=== PATIENT | female | born 1985 | race Caucasian/White ===

== ENCOUNTER 2017-12-18 05:37 | Emergency (ER) | payer SELFPAY ==
--- NOTE | 2017-12-18 06:40 | PHYS DOC ---
Past History Past Medical History: No Pertinent History Smoking: Cigarettes Alcohol Use: None Drug Use: None Adult General Chief Complaint Chief Complaint: ANKLE PROBLEM HPI HPI Patient is a 32 year old female who presents with complaining of injury to right ankle. Patient states she twisted her ankle last night while walking her dog and felt severe pain in lateral side of her ankle that gradually getting worse. Patient rated her pain 6 without bearing weight and 10 out of 10 with standing up. She denies focal neuro deficit and other injuries. Review of Systems Review of Systems Constitutional: Denies fever or chills [] Eyes: Denies change in visual acuity, redness, or eye pain [] HENT: Denies nasal congestion or sore throat [] Respiratory: Denies cough or shortness of breath [] Cardiovascular: No additional information not addressed in HPI [] GI: Denies abdominal pain, nausea, vomiting, bloody stools or diarrhea [] : Denies dysuria or hematuria [] Musculoskeletal: Denies back pain, reports joint pain [] Integument: Denies rash or skin lesions [] Neurologic: Denies headache, focal weakness or sensory changes [] Endocrine: Denies polyuria or polydipsia [] All other systems were reviewed and found to be within normal limits, except as documented in this note. Allergies Allergies Allergies Coded Allergies Type Severity Reaction Last Updated Verified paroxetine Allergy Unknown 12/18/17 Yes Physical Exam Physical Exam Constitutional: Well developed, well nourished, mild distress, non-toxic appearance. [] HENT: Normocephalic, atraumatic. Eyes: PERRLA, EOMI, conjunctiva normal, no discharge. [] Neck: Normal range of motion, no tenderness, supple, no stridor. [] Cardiovascular:Heart rate regular rhythm, no murmur [] Lungs & Thorax: Bilateral breath sounds clear to auscultation [] Skin: Warm, dry, no erythema, no rash. [] Back: No tenderness, no CVA tenderness. [] Extremities: Right ankle with erythema and tenderness in lateral side and limited range of motion, no neurovascular deficit, mild erythema of right foot. Neurologic: Alert and oriented X 3, normal motor function, normal sensory function, no focal deficits noted. [] Psychologic: Affect normal, judgement normal, mood normal. [] Current Patient Data Vital Signs Vital Signs Date Time Temp Pulse Resp B/P (MAP) Pulse Ox O2 Delivery O2 Flow Rate FiO2 12/18/17 06:15 98.4 84 18 99 Room Air EKG EKG [] Radiology/Procedures Radiology/Procedures [address] [address] IMAGING REPORT Signed PATIENT: ALPESH AUGUST ACCOUNT: [id number] : 1985 LOCATION: ER AGE: 32 SEX: F EXAM STATUS: REG ER ORD. PHYSICIAN: MAURILIO GARCIA MD REASON: injury PROCEDURE: ANKLE RIGHT 3V Clinical indications: Lateral swelling of the right ankle and the dorsal aspect of the right foot. 3 view study of the right ankle: Mild lateral soft tissue swelling is seen. No acute fracture or dislocation or osteolytic process is evident. The mortise ankle joint is intact. 3 view study of the right foot: No acute fracture or dislocation or osteolytic process is seen. No plantar spur of the calcaneus is evident. Mild dorsal soft tissue swelling is evident. IMPRESSION: No significant osseous abnormality. Electronically signed by: Marcia Metzger MD (12/18/2017 7:49 AM) [facility] DICTATED AND SIGNED BY: MARCIA METZGER MD DATE: 12/18/17745 CC: MAURILIO GARCIA MD; PCP,NO ~ Course & Med Decision Making Course & Med Decision Making Pertinent Imaging studies reviewed. (See chart for details) Evaluation of patient in ER showed 32-year-old female patient with injury to right ankle with moderate edema and tenderness and unremarkable x-ray of ankle. Patient had gelcast splint applied by HYDROSTATIC TUBING TESTER and instructed to follow-up with primary care physician. Dragon Disclaimer Dragon Disclaimer This electronic medical record was generated, in whole or in part, using a voice recognition dictation system. Departure Departure: Impression: Primary Impression: Right ankle sprain Additional Impressions: Tobacco abuse Tobacco abuse counseling Disposition: HOME, SELF-CARE (at 0745) Condition: IMPROVED Referrals: PCP,NO (PCP) Patient Instructions: Ankle Sprain, Smoking Cessation, Tips For Success Additional Instructions: Apply ice on your ankle Follow-up with your primary care physician in 3-5 days Return to ER if not getting better Scripts Naproxen (NAPROSYN) 500 Mg Tablet 1 TAB PO BID, #20 TAB Prov: MAURILIO GARCIA MD 12/18/17 Problem Qualifiers MAURILIO GARCIA MD Dec 18, 2017 06:40
[2017-12-18] MEDS ORDERED: KETOROLAC 60 MG/2 ML VIAL. IM ONE (07:00)
[2017-12-18] MEDS ORDERED: NAPR-683 PO (07:46)
--- NOTE | 2017-12-18 07:52 | RAD ---
Clinical indications: Lateral swelling of the right ankle and the dorsal aspect of the right foot. 3 view study of the right ankle: Mild lateral soft tissue swelling is seen. No acute fracture or dislocation or osteolytic process is evident. The mortise ankle joint is intact. 3 view study of the right foot: No acute fracture or dislocation or osteolytic process is seen. No plantar spur of the calcaneus is evident. Mild dorsal soft tissue swelling is evident. IMPRESSION: No significant osseous abnormality. Electronically signed by: Kamran Metzger MD (12/18/2017 7:49 AM) [facility]
--- NOTE | 2017-12-18 07:53 | RAD ---
3 view study of the right foot Clinical indications: Lateral swelling of the right ankle and dorsal aspect of the right foot. FINDINGS: No acute fracture or dislocation or osteolytic process is seen. No plantar spur of the calcaneus is evident. Mild dorsal soft tissue swelling is evident. No significant arthritic change is seen. IMPRESSION: No significant osseous abnormality. Electronically signed by: Kamran Metzger MD (12/18/2017 7:50 AM) [facility]
[2017-12-18 07:56] VITALS: BP 108/84
== END 2017-12-18 07:56 | disposition home or self-care (01) ==
LOC: ER 05:37
DX: S93.401A Sprain of unspecified ligament of right ankle, initial encounter (principal); F17.210 Nicotine dependence, cigarettes, uncomplicated; Z71.6 Tobacco abuse counseling; Z88.8 Allergy status to other drugs, medicaments and biological substances; X50.1XXA Overexertion from prolonged static or awkward postures, initial encounter; Y93.K1 Activity, walking an animal; Y92.89 Other specified places as the place of occurrence of the external cause; Y99.8 Other external cause status
CPT/HCPCS: 73610; 73630; 96372; 99284; J1885

== ENCOUNTER 2017-12-23 14:37 | Emergency (ER) | payer SELFPAY ==
[~2017-12-23] VITALS: Ht 165.1 cm; Wt 54.4 kg
[~2017-12-23 14:37] MED LIST: NAPR-683 PO
[2017-12-23] MEDS ORDERED: ACET-704 PO (15:23)
--- NOTE | 2017-12-23 15:24 | PHYS DOC ---
Past History Past Medical History: No Pertinent History Past Surgical History: Other Smoking: Cigarettes Additional Smoking Information: 03/07 PPD Alcohol Use: None Drug Use: None Adult General Chief Complaint Chief Complaint: ANKLE PROBLEM HPI HPI Patient is a 32 year old female history of injury to right ankle 5 days ago and ER visit with diagnosis of sprain complaining of increasing pain and swelling of her ankle. Patient had crutches and Aircast splint and prescription of Naprosyn but states her pain is not getting better and her swelling getting worse. Patient denies focal neuro deficit and new injuries. Review of Systems Review of Systems Constitutional: Denies fever or chills [] Eyes: Denies change in visual acuity, redness, or eye pain [] HENT: Denies nasal congestion or sore throat [] Respiratory: Denies cough or shortness of breath [] Cardiovascular: No additional information not addressed in HPI [] GI: Denies abdominal pain, nausea, vomiting, bloody stools or diarrhea [] : Denies dysuria or hematuria [] Musculoskeletal: Denies back pain, reports joint pain [] Integument: Denies rash or skin lesions [] Neurologic: Denies headache, focal weakness or sensory changes [] Endocrine: Denies polyuria or polydipsia [] All other systems were reviewed and found to be within normal limits, except as documented in this note. Allergies Allergies Allergies Coded Allergies Type Severity Reaction Last Updated Verified paroxetine Allergy Unknown 12/18/17 Yes Physical Exam Physical Exam Constitutional: Well developed, well nourished, mild distress, non-toxic appearance. [] HENT: Normocephalic, atraumatic Eyes: PERRLA, EOMI, conjunctiva normal, no discharge. [] Neck: Normal range of motion, no tenderness, supple, no stridor. [] Cardiovascular:Heart rate regular rhythm, no murmur [] Lungs & Thorax: Bilateral breath sounds clear to auscultation [] Skin: Warm, dry, no erythema, no rash. [] Back: No tenderness, no CVA tenderness. [] Extremities: Right ankle with contusion and old ecchymosis in lateral malleolus with moderate edema and tenderness without deformity No tenderness, no cyanosis , no clubbing, Neurologic: Alert and oriented X 3, normal motor function, normal sensory function, no focal deficits noted. [] Psychologic: Affect normal, judgement normal, mood normal. [] Current Patient Data Vital Signs Vital Signs Date Time Temp Pulse Resp B/P (MAP) Pulse Ox O2 Delivery O2 Flow Rate FiO2 12/23/17 14:59 98.9 93 20 100 Room Air EKG EKG [] Radiology/Procedures Radiology/Procedures [] Course & Med Decision Making Course & Med Decision Making Evaluation of patient in ER showed 32-year-old female patient with history of ankle injury and negative x-ray previous emergency room visits complaining of increasing pain. Patient instructed to elevate her leg and continue to use crutches and gel cast splint. Prescription for Tylenol 3 was given. Dragon Disclaimer Dragon Disclaimer This electronic medical record was generated, in whole or in part, using a voice recognition dictation system. Departure Departure: Impression: Primary Impression: Moderate right ankle sprain Additional Impressions: Contusion of right ankle Tobacco abuse Tobacco abuse counseling Disposition: HOME, SELF-CARE (at 1520) Condition: STABLE Referrals: PCP,NO (PCP) Patient Instructions: Ankle Sprain, Smoking Cessation, Tips For Success Additional Instructions: Continue using crutches and ankle splint Elevate right leg Follow-up with your primary care physician in 3-5 days Return to ER if not getting better Scripts Acetaminophen With Codeine (TYLENOL WITH CODEINE #3 TABLET) 1 Each Tablet 1 TAB PO Q6HRS, #14 TAB Prov: MAURILIO GARCIA MD 12/23/17 Problem Qualifiers MAURILIO GARCIA MD Dec 23, 2017 15:24
[2017-12-23 15:35] VITALS: BP 122/66
== END 2017-12-23 15:39 | disposition home or self-care (01) ==
LOC: ER 14:37
DX: S93.401D Sprain of unspecified ligament of right ankle, subsequent encounter (principal); F17.210 Nicotine dependence, cigarettes, uncomplicated; Z71.6 Tobacco abuse counseling; X58.XXXD Exposure to other specified factors, subsequent encounter
CPT/HCPCS: 99283

== ENCOUNTER 2017-12-27 16:01 | Inpatient (IN) | payer SELFPAY ==
[~2017-12-27] VITALS: Ht 165.1 cm; Wt 56.5 kg
[~2017-12-27 16:01] MED LIST changes: +ACET-704 PO
[2017-12-27] MEDS ORDERED: oxyCODONE/APAP 10/325 1 TAB TABLET PO ONE (17:45)
[2017-12-27] MEDS ORDERED: LIDOCAINE 2% 20 ML VIAL. ONE (18:47)
--- NOTE | 2017-12-27 19:12 | PHYS DOC ---
Past History Past Medical History: Anxiety Past Surgical History: Other Smoking: Cigarettes Alcohol Use: None Drug Use: None Adult General Chief Complaint Chief Complaint: SKIN RASH/ABSCESS HPI HPI 32-year-old female presents with right ankle abscess. Patient has been on Bactrim for the last 7 days, but her abscess has not improved. She has surrounding cellulitis. The patient initially thought she had an ankle fracture , but turned out to be infection. She presents today to have the abscess drained. She does not have a systemic fever. Review of Systems Review of Systems Constitutional: Denies fever or chills [] Eyes: Denies change in visual acuity, redness, or eye pain [] HENT: Denies nasal congestion or sore throat [] Respiratory: Denies cough or shortness of breath [] Cardiovascular: No additional information not addressed in HPI [] GI: Denies abdominal pain, nausea, vomiting, bloody stools or diarrhea [] : Denies dysuria or hematuria [] Musculoskeletal: Denies back pain or joint pain [] Integument: Abscess and cellulitis[] Neurologic: Denies headache, focal weakness or sensory changes [] Endocrine: Denies polyuria or polydipsia [] All other systems were reviewed and found to be within normal limits, except as documented in this note. Current Medications Current Medications Current Medications Medications (Trade) Dose Ordered Sig/[facility] Start Time Stop Time Status Last Admin Dose Admin Lidocaine HCl 20 ml STK-MED ONCE 12/27/17 18:47 12/27/17 18:48 DC Oxycodone/ Acetaminophen (Percocet 10/325) 1 tab 1X ONCE 12/27/17 17:45 12/27/17 17:46 DC 12/27/17 17:45 1 TAB Allergies Allergies Allergies Coded Allergies Type Severity Reaction Last Updated Verified paroxetine Allergy Unknown 12/18/17 Yes Physical Exam Physical Exam Constitutional: Well developed, well nourished, no acute distress, non-toxic appearance. [] HENT: Normocephalic, atraumatic, bilateral external ears normal, oropharynx moist, no oral exudates, nose normal. [] Eyes: PERRLA, EOMI, conjunctiva normal, no discharge. [] Neck: Normal range of motion, no tenderness, supple, no stridor. [] Cardiovascular:Heart rate regular rhythm, no murmur [] Lungs & Thorax: Bilateral breath sounds clear to auscultation [] Abdomen: Bowel sounds normal, soft, no tenderness, no masses, no pulsatile masses. [] Skin: 3 cm x 5 cm fluctuant abscess on the right lateral ankle. There is surrounding cellulitis 8 cm x 8 cm.[] Back: No tenderness, no CVA tenderness. [] Extremities: No tenderness, no cyanosis, no clubbing, ROM intact, no edema. [] Neurologic: Alert and oriented X 3, normal motor function, normal sensory function, no focal deficits noted. [] Psychologic: Affect normal, judgement normal, mood normal. [] Current Patient Data Vital Signs Vital Signs Date Time Temp Pulse Resp B/P (MAP) Pulse Ox O2 Delivery O2 Flow Rate FiO2 12/27/17 16:30 98.5 90 19 100 Room Air EKG EKG [] Radiology/Procedures Radiology/Procedures [] Course & Med Decision Making Course & Med Decision Making Pertinent Labs and Imaging studies reviewed. (See chart for details) The patient had an obvious abscess of the right lateral ankle with surrounding cellulitis. I was able to I&D it. See note below for details. The patient denies IV drug use, but she has track bonilla and I'm not sure she has been completely forthcoming. She has failed outpatient antibiotics. I will give her vancomycin and Zosyn in the ED. I discussed the case with Dr. Oviedo and he has accepted the patient for admission and further treatment. [] Dragon Disclaimer Dragon Disclaimer This electronic medical record was generated, in whole or in part, using a voice recognition dictation system. Departure Departure: Referrals: PCP,CLAU (PCP) YEIMY MORATAYA DO Dec 27, 2017 19:12
[2017-12-27] MEDS ORDERED: VANCOMYCIN 1.25 GM in IV NORMAL SALINE 250ML 250 ML IV ONE (19:30)
[2017-12-27] MEDS ORDERED: VANCOMYCIN 1.25 GM in IV NORMAL SALINE 500ML 500 ML IV ONE (19:30)
[2017-12-27] MEDS ORDERED: PIPERACILLIN/TAZOBACTAM 4.5 GM in IV NORMAL SALINE 50ML 50 ML IV ONE (19:45)
[2017-12-27] MEDS ORDERED: HYDROcodone/APAP 5/325MG 1 TAB TABLET PO ONE (20:00)
[2017-12-27] MEDS ORDERED: IV NORMAL SALINE 250ML 250 ML ONE (20:07)
[2017-12-27] MEDS ORDERED: PIPERACILLIN/TAZOBACTAM 4.5 GM VIAL IV ONE (20:08)
[2017-12-27] MEDS ORDERED: VANCOMYCIN 1 GM VIAL. ONE (20:08)
[2017-12-27] MEDS ORDERED: IV NORMAL SALINE 50ML 50 ML ONE (20:08)
[2017-12-27 20:16] LABS: BASO % 1 % (0-3); EOS # 0.1 x10^3/uL (0.0-0.7); EOS % 2 % (0-3); HEMATOCRIT 34.3 % (36.0-47.0); HEMOGLOBIN 11.9 g/dL (12.0-15.5); LYMPH % 37 % (24-48); MEAN CORPUSCULAR HEMOGLOBIN 33 pg (25-35); MEAN CORPUSCULAR HGB CONC 35 g/dL (31-37); MEAN CORPUSCULAR VOLUME 94 fL (79-100); MONO # 0.7 x10^3/uL (0.0-1.1); MONO % 14 % (0-9); NEUT # 2.5 x10^3uL (1.8-7.7); NEUT % 47 % (31-73); PLATELET COUNT 241 x10^3/uL (140-400); RED BLOOD COUNT 3.64 x10^6/uL (3.50-5.40); RED CELL DISTRIBUTION WIDTH 13.4 % (11.5-14.5); WHITE BLOOD COUNT 5.3 x10^3/uL (4.0-11.0)
[2017-12-27 20:29] LABS: ALBUMIN 3.1 g/dL (3.4-5.0); ALBUMIN/GLOBULIN RATIO 0.6 (1.0-1.7); CALCIUM 9.2 mg/dL (8.5-10.1); CREATININE 1.1 mg/dL (0.6-1.0); GFR 58.3; POTASSIUM 4.6 mmol/L (3.5-5.1); TOTAL BILIRUBIN 0.3 mg/dL (0.2-1.0); TOTAL PROTEIN 8.6 g/dL (6.4-8.2)
[2017-12-27] MEDS ORDERED: ONDANSETRON PF 4 MG/2 ML VIAL. IV PRN (21:15)
[2017-12-27] MEDS ORDERED: IV NORMAL SALINE 1,000ML 1,000 ML IV SCH (21:24)
[2017-12-27] MEDS ORDERED: IV NORMAL SALINE 1,000ML 500 ML IV SCH (21:24)
[2017-12-27 21:42] VITALS: BP 122/67
[2017-12-27 23:02] VITALS: BP 112/72
[2017-12-27] MEDS ORDERED: PIP/TAZO PER PHARMACY MC PRN (23:45)
[2017-12-27 23:48] LABS: BARBITURATES NEG (NEG); BENZODIAZEPINES NEG (NEG); CANNABINOIDS NEG (NEG); COCAINE NEG (NEG); METHADONE POS (NEG); OPIATES POS (NEG); PHENCYCLIDINE NEG (NEG)
[2017-12-28 00:02] LABS: AMPHETAMINE/METHAMPHETAMINE NEG (NEG)
[2017-12-28] MEDS: HYDROcodone/APAP 7.5/325MG 1 TAB TABLET PO PRN ×2 (00:23→22:36)
[2017-12-28] MEDS: VANCOMYCIN PER PHARMACY MC PRN ×2 (00:25→00:28)
--- NOTE | 2017-12-28 00:29 | NUR ---
Pharmacy Vancomycin Dosing Note S:Consulted to monitor and dose vancomycin started 12/27/17. O:ALPESH AUGUST is a 32 year old F with Cellulitis . Height: 5 feet, 5 inches Weight: 55.823684 kg [place] Body Weight: 57.00 Adjusted Body Weight: 56.48 Dosing Weight: Actual Other Antibiotics: ZOSYN 3.375G Q6H LABS: Last BUN: 18 Last Creatinine: 1.1 Creatinine Clearance: 65 Last WBC: 5.3 Last Platelets: 241 Tmax (past 24 hours): 98.5 Microbiology: 12/28 PENDING, I&D DONE WITH CX TAKEN I/O: - Drug Levels: Last level: on at Last dose given 12/27/17 at 2030 Vancomycin Dosing: Loading Dose: 1250 mg x1 Dosing Weight: Actual Target Trough: 10-20 A: Based on: WEIGHT, CRCL~65, NON-SEVERE INFECTION, P: 1. INITIATE Vancomycin 750 mg IV q12h AFTER 1250 MG LOADING DOSE, 2. Follow up Trough level on 12/29/17 at 0800 3. Pharmacy will continue to monitor, follow and adjust therapy as needed. SARAH BRYAN [facility], 12/28/17 0029
[2017-12-28] MEDS: PIPERACILLIN/TAZOBACTAM 3.375 GM in IV NORMAL SALINE 50ML 50 ML IV SCH ×4 (01:11→17:25)
[2017-12-28] MEDS: MORPHINE SULFATE 2 MG/ML DISP.SYRIN. IV PRN ×6 (01:29→20:43)
--- NOTE | 2017-12-28 01:50 | NUR ---
PT presented to the ED with a chief complaint of RT ankle pain and abscess. Ankle pain for 2 weeks related to trauma (tripping over dog). PT presented to the ED 2 times prior to this presentation for same complaint. PT with abscess since yesterday per PT. Abscess lanced and cultured in ED. PT admitted for IV antibiotics and pain management. PT arrived on unit via EMS cart in stable condition. PT transferred to bed and assessed. PT wound assessed with photos taken and bandage applied. Wound with sanguinous drainage at time of admission. PT oriented to unit and belongings noted.
[2017-12-28 05:55] VITALS: BP 124/85
[2017-12-28 06:42] LABS: BASO % 1 % (0-3); EOS # 0.1 x10^3/uL (0.0-0.7); EOS % 2 % (0-3); HEMATOCRIT 32.2 % (36.0-47.0); LYMPH # 1.4 x10^3/uL (1.0-4.8); LYMPH % 41 % (24-48); MEAN CORPUSCULAR HEMOGLOBIN 33 pg (25-35); MEAN CORPUSCULAR HGB CONC 34 g/dL (31-37); MEAN CORPUSCULAR VOLUME 95 fL (79-100); MONO # 0.5 x10^3/uL (0.0-1.1); MONO % 15 % (0-9); NEUT # 1.4 x10^3uL (1.8-7.7); NEUT % 41 % (31-73); PLATELET COUNT 205 x10^3/uL (140-400); RED CELL DISTRIBUTION WIDTH 13.6 % (11.5-14.5); WHITE BLOOD COUNT 3.5 x10^3/uL (4.0-11.0)
[2017-12-28 06:43] LABS: CALCIUM 8.5 mg/dL (8.5-10.1); GFR 65.1; POTASSIUM 4.3 mmol/L (3.5-5.1)
[2017-12-28] MEDS: VANCOMYCIN 750 MG in IV NORMAL SALINE 250ML 250 ML IV SCH ×2 (08:49→20:45)
[2017-12-28 10:56] VITALS: BP 112/67
--- NOTE | 2017-12-28 16:36 | NUR ---
Wound Care Wound care consult for abscess to right lateral ankle. Abscess was opened in ER but has reapproximated and filled with drainage again. Attempted to reopen and pack with aquacel ag rope but pt did not tolerate well, unsure if packing is still in wound opening. Covered with 4x4 telfa pad. Discussed with PCP, abscess will need to be reopened and packed to keep open to drain. WC will continue to follow for possible changes.
[2017-12-28 16:52] VITALS: BP 125/81
[2017-12-28 19:45] VITALS: BP 126/89
--- NOTE | 2017-12-28 19:49 | PDOC1 ---
History and Physical Date of Admission: Date of Admission: December 27, 2014 Chief Complaint: Chief Complain: Right ankle pain Source: Source: Caregiver, Chart review, Patient HPI: HPI: 32-year-old female presented to the emergency department complaining of right ankle pain. Patient had been seen previously on the and of this month in the emergency department diagnosed as right ankle sprain. Plain films had been negative and the patient had been placed on Bactrim for the past 7 days. Despite this she presented complaining of worsening right ankle pain with fever and chills. She was found to have an abscess at the lateral malleolus which was I&D by the emergency department physician and wound culture was obtained. She was placed on Zosyn and vancomycin and admitted for continued IV antibiotics and await for wound cultures. Although she complains of pain with walking she denies pain with passive range of motion and no sign of septic joint. White blood cell count was normal, sedimentation rate elevated 69, sodium 131, albumin 3.1. Urine drug screen positive for opiates and methadone. I find the patient sitting up in bed with sterile dressing at the right ankle stating she is feeling much better. She denies any fever or chills since admission and states her pain is controlled. Nursing reports that she has made several trips outside to smoke cigarettes and I advised her this was a smoke- free campus. Her sodium is normalized with IV hydration and when I ask her if she is in a methadone clinic she denies stating that she took it due to her severe pain. She has remained afebrile since admission and although has pain at the right ankle has been ambulatory. Past Medical History: Psych: Anxiety Past Surgical History: PSH: No pertinent surgical history Social History: Smoke: 1 pack per day Alcohol: none Drugs: Other (initially denied any emergency department but admits to methadone ) Allergies: Allergies: Coded Allergies: paroxetine (Verified Allergy, Intermediate, 12/28/17) Current Medications: Current Medications: Current Medications Medications (Trade) Dose Ordered Sig/[facility] Start Time Stop Time Status Last Admin Dose Admin Acetaminophen/ Hydrocodone Bitart (Lortab 5/325) 1 tab 1X ONCE 12/27/17 20:00 12/27/17 20:01 DC 12/27/17 20:25 1 TAB Acetaminophen/ Hydrocodone Bitart (Lortab 7.5/325) 1 tab PRN Q6HRS PRN 12/27/17 23:45 12/28/17 00:23 1 TAB Influenza Virus Vaccine (Afluria Trivalent [id number] Syringe) 0.5 ml ONCE ONCE 12/27/17 23:15 12/27/17 23:16 DC Lactobacillus Rhamnosus (Culturelle) 1 cap BID 12/28/17 21:00 Lidocaine HCl 20 ml STK-MED ONCE 12/27/17 18:47 12/27/17 18:48 DC Morphine Sulfate (Morphine 2mg Syringe) 2 mg PRN Q2HR PRN 12/27/17 21:15 12/28/17 21:14 12/28/17 15:55 2 MG Ondansetron HCl (Zofran) 4 mg PRN Q4HRS PRN 12/27/17 21:15 12/28/17 21:14 Oxycodone/ Acetaminophen (Percocet 10) 1 tab 1X ONCE 12/27/17 17:45 12/27/17 17:46 DC 12/27/17 17:45 1 TAB Piperacillin Sod/ Tazobactam Sod (Zosyn Per Pharmacy) 1 each PRN DAILY PRN 12/27/17 23:45 Piperacillin Sod/ Tazobactam Sod (Zosyn) 4.5 gm STK-MED ONCE 12/27/17 20:08 12/27/17 20:09 DC Piperacillin Sod/ Tazobactam Sod 3.375 gm/Sodium Chloride 50 ml @ 100 mls/hr Q6HRS 12/28/17 00:30 12/28/17 17:25 100 MLS/HR Piperacillin Sod/ Tazobactam Sod 4.5 gm/Sodium Chloride 50 ml @ 100 mls/hr 1X ONCE 12/27/17 19:45 12/27/17 20:14 DC 12/27/17 20:28 100 MLS/HR Sodium Chloride 1,000 ml @ 150 mls/hr Q6H40M 12/27/17 21:24 12/28/17 04:03 DC 12/27/17 23:52 150 MLS/HR Vancomycin HCl (Vanco Per Pharmacy) 1 each PRN DAILY PRN 12/27/17 23:45 12/28/17 00:28 1 EACH Vancomycin HCl (Vancomycin Trough Level) 1 each 1X ONCE 12/29/17 08:00 12/29/17 08:01 Vancomycin HCl (Vancomycin) 1 gm STK-MED ONCE 12/27/17 20:08 12/27/17 20:09 DC Vancomycin HCl 1.25 gm/Sodium Chloride 250 ml @ 166.667 mls/hr 1X ONCE 12/27/17 19:30 12/27/17 20:59 DC 12/27/17 20:28 166.667 MLS/HR Vancomycin HCl 750 mg/Sodium Chloride 250 ml @ 250 mls/hr Q12H 12/28/17 08:30 12/28/17 08:49 250 MLS/HR ROS: ROS: Constitutional: See history of present illness Eyes: No eye pain or blurred vision Skin: No rash or itching Cardiovascular: No chest pain, syncope, palpitations, dyspnea on exertion, or edema Respiratory: No cough or difficulty breathing Gastrointestinal: No nausea, vomiting, or abdominal pain Neurologic: No headaches or focal neurologic deficits Endocrine: No heat or cold intolerance Genitourinary: No incontinence or hematuria Musculoskeletal: See history of present illness Lymphatics: No enlarged lymph nodes Psychiatric: No anxiety or depression PE: PE: Gen.: Alert, pleasant, no apparent distress HEENT: Normocephalic atraumatic, PERRLA EOMI, no scleral icterus, oral mucosa pink and moist Neck: Supple, no lymphadenopathy, nontender Cardiovascular: Normal S1 and S2 no murmurs Pulmonary: Lungs are clear bilaterally with good air movement no respiratory distress Abdomen: Soft nontender non-distended, bowel sounds present no masses Extremities: Soft tissue swelling at the right lateral malleolus with overlying sterile dressing and no visualized erythema, extremity is neurovascularly intact Neuro: Alert and oriented 3, cranial nerves II through XII grossly intact, no lateralizing neuro deficits Vitals: Vitals: Vital Signs Date Time Temp Pulse Resp B/P (MAP) Pulse Ox O2 Delivery O2 Flow Rate FiO2 12/28/17 19:33 Room Air 12/28/17 16:52 98.9 78 18 125/81 (96) 96 Labs: Labs: Laboratory Tests Test 12/27/17 19:55 12/27/17 23:33 12/28/17 06:05 White Blood Count 5.3 x10^3/uL (4.0-11.0) 3.5 x10^3/uL (4.0-11.0) Red Blood Count 3.64 x10^6/uL (3.50-5.40) 3.40 x10^6/uL (3.50-5.40) Hemoglobin 11.9 g/dL (12.0-15.5) 11.0 g/dL (12.0-15.5) Hematocrit 34.3 % (36.0-47.0) 32.2 % (36.0-47.0) Mean Corpuscular Volume 94 fL (79-100) 95 fL (79-100) Mean Corpuscular Hemoglobin 33 pg (25-35) 33 pg (25-35) Mean Corpuscular Hemoglobin Concent 35 g/dL (31-37) 34 g/dL (31-37) Red Cell Distribution Width 13.4 % (11.5-14.5) 13.6 % (11.5-14.5) Platelet Count 241 x10^3/uL (140-400) 205 x10^3/uL (140-400) Neutrophils (%) (Auto) 47 % (31-73) 41 % (31-73) Lymphocytes (%) (Auto) 37 % (24-48) 41 % (24-48) Monocytes (%) (Auto) 14 % (0-9) 15 % (0-9) Eosinophils (%) (Auto) 2 % (0-3) 2 % (0-3) Basophils (%) (Auto) 1 % (0-3) 1 % (0-3) Neutrophils # (Auto) 2.5 x10^3uL (1.8-7.7) 1.4 x10^3uL (1.8-7.7) Lymphocytes # (Auto) 2.0 x10^3/uL (1.0-4.8) 1.4 x10^3/uL (1.0-4.8) Monocytes # (Auto) 0.7 x10^3/uL (0.0-1.1) 0.5 x10^3/uL (0.0-1.1) Eosinophils # (Auto) 0.1 x10^3/uL (0.0-0.7) 0.1 x10^3/uL (0.0-0.7) Basophils # (Auto) 0.0 x10^3/uL (0.0-0.2) 0.0 x10^3/uL (0.0-0.2) Erythrocyte Sedimentation Rate 69 (0-25) Sodium Level 131 mmol/L (136-145) 136 mmol/L (136-145) Potassium Level 4.6 mmol/L (3.5-5.1) 4.3 mmol/L (3.5-5.1) Chloride Level 97 mmol/L (98-107) 103 mmol/L (98-107) Carbon Dioxide Level 28 mmol/L (21-32) 28 mmol/L (21-32) Anion Gap 6 (6-14) 5 (6-14) Blood Urea Nitrogen 18 mg/dL (7-20) 16 mg/dL (7-20) Creatinine 1.1 mg/dL (0.6-1.0) 1.0 mg/dL (0.6-1.0) Estimated GFR (Cockcroft-Gault) 58.3 65.1 BUN/Creatinine Ratio 16 (6-20) Glucose Level 93 mg/dL (70-99) 84 mg/dL (70-99) Calcium Level 9.2 mg/dL (8.5-10.1) 8.5 mg/dL (8.5-10.1) Total Bilirubin 0.3 mg/dL (0.2-1.0) Aspartate Amino Transf (AST/SGOT) 31 U/L (15-37) Alanine Aminotransferase (ALT/SGPT) 51 U/L (14-59) Alkaline Phosphatase 101 U/L (46-116) Total Protein 8.6 g/dL (6.4-8.2) Albumin 3.1 g/dL (3.4-5.0) Albumin/Globulin Ratio 0.6 (1.0-1.7) Ethyl Alcohol Level < 10 mg/dL (0-10) Urine Opiates Screen Pos (NEG) Urine Methadone Screen Pos (NEG) Urine Barbiturates Neg (NEG) Urine Phencyclidine Screen Neg (NEG) Urine Amphetamine/Methamphetamine Neg (NEG) Urine Benzodiazepines Screen Neg (NEG) Urine Cocaine Screen Neg (NEG) Urine Cannabinoids Screen Neg (NEG) Urine Ethyl Alcohol Neg (NEG) Micro: Microbiology VTE Prophylaxis: VTE Prophylaxis Devices: No VTE Pharmacological Prophylaxi: No Assessment/Plan: A/P: Right lower extremity abscess with cellulitis Nicotine addiction Methadone abuse Hyponatremia Continue vancomycin and Zosyn and await culture from abscess I&D. Nicotine patch discourage cigarette smoking. 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 Stool softener to prevent constipation discourage illicit opiate abuse. Wound care consultation reported the abscess was not packed and needs to be I&D with packing. YOVANA ESCOBAR DO Dec 28, 2017 19:49
[2017-12-28] MEDS: LACTOBACILLUS RHAMNOSUS GG 1 CAPSULE. PO SCH (21:00)
[2017-12-28 22:30] VITALS: BP 121/77
[2017-12-29] MEDS: HYDROcodone/APAP 7.5/325MG 1 TAB TABLET PO PRN (04:46)
[2017-12-29] MEDS: PIPERACILLIN/TAZOBACTAM 3.375 GM in IV NORMAL SALINE 50ML 50 ML IV SCH ×5 (05:51→06:00)
[2017-12-29 06:25] VITALS: BP 142/73
[2017-12-29] MEDS: VANCOMYCIN 750 MG in IV NORMAL SALINE 250ML 250 ML IV SCH (08:07)
[2017-12-29] MEDS: LACTOBACILLUS RHAMNOSUS GG 1 CAPSULE. PO SCH (08:27)
[2017-12-29] MEDS ORDERED: NICOTINE 14MG PATCH. TD SCH (09:00)
--- NOTE | 2017-12-29 11:09 | NUR ---
AMA: Pt set to be transferred to [facility] for further treatment of abscess/cellulitis of right ankle. Pt used a wheelchair to wheel herself outside, stating to this nurse that she was taking some belongings to her brother so that she would not have to take them with her to [facility]. Per security, pt was seen on security cameras climbing into a truck and leaving the premises. Wheelchair left outside of hospital. [facility] nursing crew supervisor, [facility] nursing crew supervisor, and Dr. Oviedo notified of pt's leaving AMA. Pt did not have an IV in place when she left. Only belonging noted in pt's room was an arm brace. Attempted to contact pt via phone number listed in chart but line does not accept incoming phone calls.
--- NOTE | 2017-12-29 12:25 | PDOC3 ---
Discharge Summary Visit Information: Final Diagnosis Problems Medical Problems: (1) Abscess or cellulitis of ankle Status: Acute Brief Hospital Course: Allergies: Allergies Coded Allergies Type Severity Reaction Last Updated Verified paroxetine Allergy Intermediate 12/28/17 Yes Vital Signs: Vital Signs Date Time Temp Pulse Resp B/P (MAP) Pulse Ox O2 Delivery O2 Flow Rate FiO2 12/29/17 08:00 Room Air 12/29/17 06:25 98.2 78 18 142/73 (96) 100 Lab Results: Laboratory Tests Test 12/27/17 19:55 12/27/17 23:33 12/28/17 06:05 White Blood Count 5.3 x10^3/uL (4.0-11.0) 3.5 x10^3/uL (4.0-11.0) Red Blood Count 3.64 x10^6/uL (3.50-5.40) 3.40 x10^6/uL (3.50-5.40) Hemoglobin 11.9 g/dL (12.0-15.5) 11.0 g/dL (12.0-15.5) Hematocrit 34.3 % (36.0-47.0) 32.2 % (36.0-47.0) Mean Corpuscular Volume 94 fL (79-100) 95 fL (79-100) Mean Corpuscular Hemoglobin 33 pg (25-35) 33 pg (25-35) Mean Corpuscular Hemoglobin Concent 35 g/dL (31-37) 34 g/dL (31-37) Red Cell Distribution Width 13.4 % (11.5-14.5) 13.6 % (11.5-14.5) Platelet Count 241 x10^3/uL (140-400) 205 x10^3/uL (140-400) Neutrophils (%) (Auto) 47 % (31-73) 41 % (31-73) Lymphocytes (%) (Auto) 37 % (24-48) 41 % (24-48) Monocytes (%) (Auto) 14 % (0-9) 15 % (0-9) Eosinophils (%) (Auto) 2 % (0-3) 2 % (0-3) Basophils (%) (Auto) 1 % (0-3) 1 % (0-3) Neutrophils # (Auto) 2.5 x10^3uL (1.8-7.7) 1.4 x10^3uL (1.8-7.7) Lymphocytes # (Auto) 2.0 x10^3/uL (1.0-4.8) 1.4 x10^3/uL (1.0-4.8) Monocytes # (Auto) 0.7 x10^3/uL (0.0-1.1) 0.5 x10^3/uL (0.0-1.1) Eosinophils # (Auto) 0.1 x10^3/uL (0.0-0.7) 0.1 x10^3/uL (0.0-0.7) Basophils # (Auto) 0.0 x10^3/uL (0.0-0.2) 0.0 x10^3/uL (0.0-0.2) Erythrocyte Sedimentation Rate 69 (0-25) Sodium Level 131 mmol/L (136-145) 136 mmol/L (136-145) Potassium Level 4.6 mmol/L (3.5-5.1) 4.3 mmol/L (3.5-5.1) Chloride Level 97 mmol/L (98-107) 103 mmol/L (98-107) Carbon Dioxide Level 28 mmol/L (21-32) 28 mmol/L (21-32) Anion Gap 6 (6-14) 5 (6-14) Blood Urea Nitrogen 18 mg/dL (7-20) 16 mg/dL (7-20) Creatinine 1.1 mg/dL (0.6-1.0) 1.0 mg/dL (0.6-1.0) Estimated GFR (Cockcroft-Gault) 58.3 65.1 BUN/Creatinine Ratio 16 (6-20) Glucose Level 93 mg/dL (70-99) 84 mg/dL (70-99) Calcium Level 9.2 mg/dL (8.5-10.1) 8.5 mg/dL (8.5-10.1) Total Bilirubin 0.3 mg/dL (0.2-1.0) Aspartate Amino Transf (AST/SGOT) 31 U/L (15-37) Alanine Aminotransferase (ALT/SGPT) 51 U/L (14-59) Alkaline Phosphatase 101 U/L (46-116) Total Protein 8.6 g/dL (6.4-8.2) Albumin 3.1 g/dL (3.4-5.0) Albumin/Globulin Ratio 0.6 (1.0-1.7) Ethyl Alcohol Level < 10 mg/dL (0-10) Urine Opiates Screen Pos (NEG) Urine Methadone Screen Pos (NEG) Urine Barbiturates Neg (NEG) Urine Phencyclidine Screen Neg (NEG) Urine Amphetamine/Methamphetamine Neg (NEG) Urine Benzodiazepines Screen Neg (NEG) Urine Cocaine Screen Neg (NEG) Urine Cannabinoids Screen Neg (NEG) Urine Ethyl Alcohol Neg (NEG) PE: Gen.: Alert, pleasant, no apparent distress HEENT: Normocephalic atraumatic, PERRLA EOMI, no scleral icterus, oral mucosa pink and moist Neck: Supple, no lymphadenopathy, nontender Cardiovascular: Normal S1 and S2 no murmurs Pulmonary: Lungs are clear bilaterally with good air movement no respiratory distress Abdomen: Soft nontender non-distended, bowel sounds present no masses Extremities: No clubbing, cyanosis or edema Neuro: Alert and oriented 3, cranial nerves II through XII grossly intact, no lateralizing neuro deficits Skin: Warm, dry Brief Hospital Course: Ms. Elena is a 32 old [sex] who presented with [ ] Discharge Information: Home Meds: Active Scripts Acetaminophen With Codeine (TYLENOL WITH CODEINE #3 TABLET) 1 Each Tablet, 1 TAB PO Q6HRS, #14 TAB Prov:MAURILIO GARCIA MD 12/23/17 Naproxen (NAPROSYN) 500 Mg Tablet, 1 TAB PO BID, #20 TAB Prov:MAURILIO GARCIA MD 12/18/17 YOVANA ESCOBAR DO Dec 29, 2017 12:25
== END 2017-12-29 10:10 | disposition left against medical advice (07) | DRG 603 ==
LOC: ER 16:01 → 1 SOUTH 21:00
PROVIDERS: ADMIT Neuromusculoskeletal Medicine & OMM; ATTEND Neuromusculoskeletal Medicine & OMM
DX: L03.115 Cellulitis of right lower limb (principal); E87.1 Hypo-osmolality and hyponatremia; F17.210 Nicotine dependence, cigarettes, uncomplicated; L02.415 Cutaneous abscess of right lower limb; F11.10 Opioid abuse, uncomplicated; Z79.899 Other long term (current) drug therapy; Z88.8 Allergy status to other drugs, medicaments and biological substances
CPT/HCPCS: 10060; 36415; 80048; 80053; 80307; 85025; 85651; 87040; 87071; 87075; 96365; 96368; G0480; J2270; J2543; J3370; J7050; 99285-25; G0479; J7030

== ENCOUNTER 2018-10-06 16:41 | Inpatient (IN) | payer SELFPAY ==
[~2018-10-06] VITALS: Ht 165.1 cm; Wt 56.3 kg
[2018-10-06] MEDS ORDERED: ONDANSETRON PF 4 MG/2 ML VIAL. IV ONE (17:30)
[2018-10-06] MEDS ORDERED: IV NORMAL SALINE 1,000ML 1,000 ML IV ONE (17:30)
--- NOTE | 2018-10-06 17:56 | PHYS DOC ---
Past History Past Medical History: Anxiety (SANA WALKER DO) Past Medical History: Bronchitis, Pneumonia, Other (DIONISIO RAMOS MD) Past Surgical History: Other (SANA WALKER DO) Smoking: Cigarettes Alcohol Use: None Drug Use: None (SANA WALKER DO) Adult General Chief Complaint Chief Complaint: MULTIPLE COMPLAINTS HPI HPI Patient is a 33-year-old female who presents with fever and severe body aches and pleuritic type chest pain. She states this is been ongoing now for a few days. She states she was treated for a pneumonia a few weeks ago was in the hospital with a miscarriage she had some vaginal bleeding at that time which stopped. She states she does continue to smoke tobacco. She is been a drug user in the past and is hep C positive. She was seen at [facility] and treated yesterday. CT scan of her chest there showed multi lobar infiltrate consistent with pneumonia[] (SANA WALKER DO) Review of Systems Review of Systems Constitutional: Reports fever and chills[] Eyes: Denies change in visual acuity, redness, or eye pain [] HENT: Denies nasal congestion or sore throat [] Respiratory: Reports cough congestion and shortness of breath[] Cardiovascular: No additional information not addressed in HPI [] GI: Denies abdominal pain, nausea, vomiting, bloody stools or diarrhea [] : Denies dysuria or hematuria [] Musculoskeletal: Reports severe muscle aches and joint aches especially in the shoulders[] Integument: Denies rash or skin lesions [] Neurologic: Denies headache, focal weakness or sensory changes [] Endocrine: Denies polyuria or polydipsia [] All other systems were reviewed and found to be within normal limits, except as documented in this note. (SANA AWLKER DO) Current Medications Current Medications Current Medications Medications (Trade) Dose Ordered Sig/Chris Start Time Stop Time Status Last Admin Dose Admin Fentanyl Citrate (Fentanyl 2ml Vial) 50 mcg 1X ONCE 10/06/18 17:30 10/06/18 17:31 DC Ondansetron HCl (Zofran) 4 mg 1X ONCE 10/06/18 17:30 10/06/18 17:31 DC Piperacillin Sod/ Tazobactam Sod 3.375 gm/Sodium Chloride 50 ml @ 100 mls/hr 1X ONCE 10/06/18 18:00 10/06/18 18:29 Sodium Chloride 1,000 ml @ 1,000 mls/hr 1X ONCE 10/06/18 17:30 10/06/18 18:29 Vancomycin HCl 1.25 gm/Sodium Chloride 500 ml @ 250 mls/hr 1X ONCE 10/06/18 18:00 10/06/18 19:59 (SANA WALKER DO) Allergies Allergies Allergies Coded Allergies Type Severity Reaction Last Updated Verified paroxetine Allergy Intermediate 12/28/17 Yes (SANA WALKER DO) Physical Exam Physical Exam Constitutional: Well developed, well nourished, no acute distress, non-toxic appearance. [] HENT: Normocephalic, atraumatic, bilateral external ears normal, oropharynx moist, no oral exudates, nose normal. [] Eyes: PERRLA, EOMI, conjunctiva normal, no discharge. [] Neck: Normal range of motion, no tenderness, supple, no stridor. [] Cardiovascular:Heart rate regular rhythm, no murmur [] Lungs & Thorax: Bilateral breath sounds clear to auscultation [] Abdomen: Bowel sounds normal, soft, no tenderness, no masses, no pulsatile masses. [] Skin: Warm, dry, no erythema, no rash. [] Back: No tenderness, no CVA tenderness. [] Extremities: No tenderness, no cyanosis, no clubbing, ROM intact, no edema. [] Neurologic: Alert and oriented X 3, normal motor function, normal sensory function, no focal deficits noted. [] Psychologic: Affect normal, judgement normal, mood normal. [] (SANA WALKER DO) Current Patient Data Vital Signs Vital Signs Date Time Temp Pulse Resp B/P (MAP) Pulse Ox O2 Delivery O2 Flow Rate FiO2 10/06/18 17:01 100.1 117 22 97 Room Air (SANA WALKER DO) EKG EKG [] (SANA WALKER DO) Radiology/Procedures Radiology/Procedures [] (SANA WALKER DO) Course & Med Decision Making Course & Med Decision Making Pertinent Labs and Imaging studies reviewed. (See chart for details) [] (SANA WALKER DO) Course & Med Decision Making See Dr. Walker note for details. Procedure Note: Multiple attempts by nursing for IV's. Need for IV, labs, and antibiotics. Pt. agrees to Ext. Jugular placement. Lt. Ext. jugular prepped with Betadine and pt. placed in Trendelenburg. One stick IV placed 18-gauge left external jugular. Flushed easily. Blood collected. OpSite coverage. Secured IV site with additional tape. IV fluids started. Impression:. 1. Hx. of lingular pneumonia- hospital acquired ( Recent admit- [facility]) 2. History of polysubstance abuse 3. Anemia 8.9 hemoglobin 4. Thrombocytopenia 91 5. Elevated segs 76 6. Hyponatremia 135 7. Hypokalemia 3.1 8. Elevated Glucose 133 9. Malnutrition Alb. 2.2 10. Elevated Alk phos 137/AST 41 11. Hx. Hepatitis 12. Hx. of Non-compliance 13. Tobacco use 14. Sirs vs Sepsis risk Admitted to Dr. Colby for further eval and tx. (DIONISIO RAMOS MD) Dragon Disclaimer Dragon Disclaimer This electronic medical record was generated, in whole or in part, using a voice recognition dictation system. (SANA WALKER DO) Departure Departure: Impression: Primary Impression: Pneumonia Disposition: ADMITTED INPATIENT Admitting Physician: Lyla Colby (SANA WALKER DO) Condition: GUARDED Referrals: PCP,NO (PCP) Discharge Summary Visit Information Final Diagnosis Problems Medical Problems: (1) Pneumonia Status: Acute (DIONISIO RAMOS MD) Final Diagnosis Problems Medical Problems: (1) Pneumonia Status: Acute (SANA WALKER DO) Brief Hospital Course Allergies Allergies Coded Allergies Type Severity Reaction Last Updated Verified paroxetine Allergy Intermediate 12/28/17 Yes Vital Signs Vital Signs Date Time Temp Pulse Resp B/P (MAP) Pulse Ox O2 Delivery O2 Flow Rate FiO2 10/07/18 05:48 98.4 90 18 106/70 (82) 95 Room Air Lab Results Laboratory Tests Test 10/06/18 18:24 10/06/18 19:05 10/07/18 04:15 White Blood Count 6.9 x10^3/uL (4.0-11.0) Red Blood Count 2.78 x10^6/uL (3.50-5.40) Hemoglobin 8.9 g/dL (12.0-15.5) Hematocrit 27.0 % (36.0-47.0) Mean Corpuscular Volume 97 fL (79-100) Mean Corpuscular Hemoglobin 32 pg (25-35) Mean Corpuscular Hemoglobin Concent 33 g/dL (31-37) Red Cell Distribution Width 19.1 % (11.5-14.5) Platelet Count 91 x10^3/uL (140-400) Neutrophils (%) (Auto) 65 % (31-73) Lymphocytes (%) (Auto) 19 % (24-48) Monocytes (%) (Auto) 15 % (0-9) Eosinophils (%) (Auto) 1 % (0-3) Basophils (%) (Auto) 0 % (0-3) Neutrophils # (Auto) 4.5 x10^3uL (1.8-7.7) Lymphocytes # (Auto) 1.3 x10^3/uL (1.0-4.8) Monocytes # (Auto) 1.0 x10^3/uL (0.0-1.1) Eosinophils # (Auto) 0.1 x10^3/uL (0.0-0.7) Basophils # (Auto) 0.0 x10^3/uL (0.0-0.2) Segmented Neutrophils % 76 % (35-66) Band Neutrophils % 2 % (0-9) Lymphocytes % 13 % (24-48) Monocytes % 9 % (0-10) Platelet Estimate Decreased (ADEQUATE) Polychromasia Slight Anisocytosis Slight Schistocytes Occ Sodium Level 135 mmol/L (136-145) Potassium Level 3.1 mmol/L (3.5-5.1) Chloride Level 101 mmol/L (98-107) Carbon Dioxide Level 25 mmol/L (21-32) Anion Gap 9 (6-14) Blood Urea Nitrogen 11 mg/dL (7-20) Creatinine 1.0 mg/dL (0.6-1.0) Estimated GFR (Cockcroft-Gault) 64.7 BUN/Creatinine Ratio 11 (6-20) Glucose Level 133 mg/dL (70-99) Lactic Acid Level 1.3 mmol/L (0.4-2.0) Calcium Level 8.2 mg/dL (8.5-10.1) Total Bilirubin 0.6 mg/dL (0.2-1.0) Aspartate Amino Transf (AST/SGOT) 41 U/L (15-37) Alanine Aminotransferase (ALT/SGPT) 50 U/L (14-59) Alkaline Phosphatase 137 U/L (46-116) Creatine Kinase < 15 U/L (26-192) Troponin I Quantitative < 0.017 ng/mL (0-0.055) C-Reactive Protein 205.3 mg/L (0-3.3) Total Protein 6.4 g/dL (6.4-8.2) Albumin 2.2 g/dL (3.4-5.0) Albumin/Globulin Ratio 0.5 (1.0-1.7) Urine Opiates Screen Pos (NEG) Urine Methadone Screen Pos (NEG) Urine Barbiturates Neg (NEG) Urine Phencyclidine Screen Neg (NEG) Urine Amphetamine/Methamphetamine Neg (NEG) Urine Benzodiazepines Screen Neg (NEG) Urine Cocaine Screen Neg (NEG) Urine Cannabinoids Screen Neg (NEG) Urine Ethyl Alcohol Neg (NEG) Brief Hospital Course Ms. Elena is a 33 old female who presented with Lingular pneumonia - possible hospital acquired. Admitted Dr. Colby (RACHELDIONISIO MD) Allergies Allergies Coded Allergies Type Severity Reaction Last Updated Verified paroxetine Allergy Intermediate 12/28/17 Yes Vital Signs Vital Signs Date Time Temp Pulse Resp B/P (MAP) Pulse Ox O2 Delivery O2 Flow Rate FiO2 10/07/18 05:48 98.4 90 18 106/70 (82) 95 Room Air Lab Results Laboratory Tests Test 10/06/18 18:24 10/06/18 19:05 10/07/18 04:15 White Blood Count 6.9 x10^3/uL (4.0-11.0) Red Blood Count 2.78 x10^6/uL (3.50-5.40) Hemoglobin 8.9 g/dL (12.0-15.5) Hematocrit 27.0 % (36.0-47.0) Mean Corpuscular Volume 97 fL (79-100) Mean Corpuscular Hemoglobin 32 pg (25-35) Mean Corpuscular Hemoglobin Concent 33 g/dL (31-37) Red Cell Distribution Width 19.1 % (11.5-14.5) Platelet Count 91 x10^3/uL (140-400) Neutrophils (%) (Auto) 65 % (31-73) Lymphocytes (%) (Auto) 19 % (24-48) Monocytes (%) (Auto) 15 % (0-9) Eosinophils (%) (Auto) 1 % (0-3) Basophils (%) (Auto) 0 % (0-3) Neutrophils # (Auto) 4.5 x10^3uL (1.8-7.7) Lymphocytes # (Auto) 1.3 x10^3/uL (1.0-4.8) Monocytes # (Auto) 1.0 x10^3/uL (0.0-1.1) Eosinophils # (Auto) 0.1 x10^3/uL (0.0-0.7) Basophils # (Auto) 0.0 x10^3/uL (0.0-0.2) Segmented Neutrophils % 76 % (35-66) Band Neutrophils % 2 % (0-9) Lymphocytes % 13 % (24-48) Monocytes % 9 % (0-10) Platelet Estimate Decreased (ADEQUATE) Polychromasia Slight Anisocytosis Slight Schistocytes Occ Sodium Level 135 mmol/L (136-145) Potassium Level 3.1 mmol/L (3.5-5.1) Chloride Level 101 mmol/L (98-107) Carbon Dioxide Level 25 mmol/L (21-32) Anion Gap 9 (6-14) Blood Urea Nitrogen 11 mg/dL (7-20) Creatinine 1.0 mg/dL (0.6-1.0) Estimated GFR (Cockcroft-Gault) 64.7 BUN/Creatinine Ratio 11 (6-20) Glucose Level 133 mg/dL (70-99) Lactic Acid Level 1.3 mmol/L (0.4-2.0) Calcium Level 8.2 mg/dL (8.5-10.1) Total Bilirubin 0.6 mg/dL (0.2-1.0) Aspartate Amino Transf (AST/SGOT) 41 U/L (15-37) Alanine Aminotransferase (ALT/SGPT) 50 U/L (14-59) Alkaline Phosphatase 137 U/L (46-116) Creatine Kinase < 15 U/L (26-192) Troponin I Quantitative < 0.017 ng/mL (0-0.055) C-Reactive Protein 205.3 mg/L (0-3.3) Total Protein 6.4 g/dL (6.4-8.2) Albumin 2.2 g/dL (3.4-5.0) Albumin/Globulin Ratio 0.5 (1.0-1.7) Urine Opiates Screen Pos (NEG) Urine Methadone Screen Pos (NEG) Urine Barbiturates Neg (NEG) Urine Phencyclidine Screen Neg (NEG) Urine Amphetamine/Methamphetamine Neg (NEG) Urine Benzodiazepines Screen Neg (NEG) Urine Cocaine Screen Neg (NEG) Urine Cannabinoids Screen Neg (NEG) Urine Ethyl Alcohol Neg (NEG) Brief Hospital Course Ms. Elena is a 33 old [sex] who presented with [ ] (SANA WALKER DO) Discharge Information Condition at Discharge: Improved, Stable Dischare Medications Current Medications Sodium Chloride 1,000 ml @ 1,000 mls/hr 1X ONCE IV Last administered on 10/06/18at 18:36; Start 10/06/18 at 17:30; Stop 10/06/18 at 18:29; Status DC Piperacillin Sod/ Tazobactam Sod 3.375 gm/Sodium Chloride 50 ml @ 100 mls/hr 1X ONCE IV Last administered on 10/06/18at 20:13; Start 10/06/18 at 18:00; Stop 10/06/18 at 18:29; Status DC Vancomycin HCl 1.25 gm/Sodium Chloride 500 ml @ 250 mls/hr 1X ONCE IV Last administered on 10/06/18at 20:08; Start 10/06/18 at 18:00; Stop 10/06/18 at 19:59; Status DC Fentanyl Citrate (Fentanyl 2ml Vial) 50 mcg 1X ONCE IV Last administered on 10/06/18at 18:40; Start 10/06/18 at 17:30; Stop 10/06/18 at 17:31; Status DC Ondansetron HCl (Zofran) 4 mg 1X ONCE IV Last administered on 10/06/18at 18:38; Start 10/06/18 at 17:30; Stop 10/06/18 at 17:31; Status DC Diazepam (Valium) 10 mg 1X ONCE PO ; Start 10/06/18 at 18:00; Stop 10/06/18 at 18:05; Status DC Ondansetron HCl (Zofran) 4 mg PRN Q4HRS PRN IV NAUSEA/VOMITING; Start 10/06/18 at 18:00; Stop 10/07/18 at 17:59 Fentanyl Citrate (Fentanyl 2ml Vial) 50 mcg PRN Q4HRS PRN IV PAIN Last administered on 10/07/18at 03:50; Start 10/06/18 at 18:00; Stop 10/07/18 at 17:59 Sodium Chloride 1,000 ml @ 125 mls/hr Q8H IV Last administered on 10/07/18at 05:17; Start 10/06/18 at 17:57; Stop 10/07/18 at 17:56 Acetaminophen (Tylenol) 650 mg PRN Q4HRS PRN PO FEVER Last administered on 10/06/18at 18:44; Start 10/06/18 at 18:00; Stop 10/07/18 at 17:59 Albuterol/ Ipratropium (Duoneb) 3 ml RTQID NEB ; Start 10/06/18 at 20:00; Stop 10/07/18 at 19:59 Piperacillin Sod/ Tazobactam Sod (Zosyn Per Pharmacy) 1 each PRN DAILY PRN MC SEE COMMENTS; Start 10/06/18 at 18:00; Stop 10/06/18 at 20:55; Status DC Vancomycin HCl (Vanco Per Pharmacy) 1 each PRN DAILY PRN MC SEE COMMENTS; Start 10/06/18 at 18:00; Stop 10/06/18 at 20:55; Status DC Sodium Chloride 500 ml @ As Directed STK-MED ONCE .ROUTE ; Start 10/06/18 at 18:13; Stop 10/06/18 at 18:14; Status DC Vancomycin HCl (Vancomycin) 1 gm STK-MED ONCE .ROUTE ; Start 10/06/18 at 18:13; Stop 10/06/18 at 18:14; Status DC Sodium Chloride 500 ml @ As Directed STK-MED ONCE .ROUTE ; Start 10/06/18 at 18:14; Stop 10/06/18 at 18:15; Status DC Vancomycin HCl (Vancomycin) 1 gm STK-MED ONCE .ROUTE ; Start 10/06/18 at 18:14; Stop 10/06/18 at 18:15; Status DC Lactated Ringer's 1,000 ml @ 2,000 mls/hr 1X ONCE IV ; Start 10/06/18 at 18:45; Stop 10/06/18 at 19:14; Status DC Acetaminophen (Tylenol) 1,000 mg 1X ONCE PO Last administered on 10/06/18at 18:45; Start 10/06/18 at 18:45; Stop 10/06/18 at 18:49; Status DC Ketorolac Tromethamine (Toradol 30mg Vial) 30 mg 1X ONCE IV Last administered on 10/06/18at 19:56; Start 10/06/18 at 19:45; Stop 10/06/18 at 20:12; Status DC Morphine Sulfate (Morphine 10mg Syringe) 10 mg 1X ONCE SQ Last administered on 10/06/18at 19:56; Start 10/06/18 at 20:00; Stop 10/06/18 at 20:12; Status DC Sodium Chloride 50 ml @ As Directed STK-MED ONCE .ROUTE ; Start 10/06/18 at 20:10; Stop 10/06/18 at 20:11; Status DC Piperacillin Sod/ Tazobactam Sod (Zosyn) 3.375 gm STK-MED ONCE IV ; Start 10/06/18 at 20:11; Stop 10/06/18 at 20:12; Status DC Piperacillin Sod/ Tazobactam Sod (Zosyn Per Pharmacy) 1 each PRN DAILY PRN MC SEE COMMENTS; Start 10/06/18 at 21:00 Vancomycin HCl (Vanco Per Pharmacy) 1 each PRN DAILY PRN MC SEE COMMENTS Last administered on 10/07/18at 02:10; Start 10/06/18 at 21:00 Piperacillin Sod/ Tazobactam Sod 3.375 gm/Sodium Chloride 50 ml @ 100 mls/hr Q6HRS IV Last administered on 10/07/18at 00:00; Start 10/07/18 at 00:00 Vancomycin HCl 750 mg/Sodium Chloride 250 ml @ 250 mls/hr Q12H IV ; Start 10/07/18 at 08:00 Vancomycin HCl (Vancomycin Trough Level) 1 each 1X ONCE MC ; Start 10/08/18 at 07:30; Stop 10/08/18 at 07:31 Active Scripts Active (DIONISIO RAMOS MD) Dischare Medications Current Medications Sodium Chloride 1,000 ml @ 1,000 mls/hr 1X ONCE IV Last administered on 10/06/18at 18:36; Start 10/06/18 at 17:30; Stop 10/06/18 at 18:29; Status DC Piperacillin Sod/ Tazobactam Sod 3.375 gm/Sodium Chloride 50 ml @ 100 mls/hr 1X ONCE IV Last administered on 10/06/18at 20:13; Start 10/06/18 at 18:00; Stop 10/06/18 at 18:29; Status DC Vancomycin HCl 1.25 gm/Sodium Chloride 500 ml @ 250 mls/hr 1X ONCE IV Last administered on 10/06/18at 20:08; Start 10/06/18 at 18:00; Stop 10/06/18 at 19:59; Status DC Fentanyl Citrate (Fentanyl 2ml Vial) 50 mcg 1X ONCE IV Last administered on 10/06/18 18:40; Start 10/06/18 at 17:30; Stop 10/06/18 at 17:31; Status DC Ondansetron HCl (Zofran) 4 mg 1X ONCE IV Last administered on 10/06/18at 18:38; Start 10/06/18 at 17:30; Stop 10/06/18 at 17:31; Status DC Diazepam (Valium) 10 mg 1X ONCE PO ; Start 10/06/18 at 18:00; Stop 10/06/18 at 18:05; Status DC Ondansetron HCl (Zofran) 4 mg PRN Q4HRS PRN IV NAUSEA/VOMITING; Start 10/06/18 at 18:00; Stop 10/07/18 at 17:59 Fentanyl Citrate (Fentanyl 2ml Vial) 50 mcg PRN Q4HRS PRN IV PAIN Last administered on 10/07/18at 03:50; Start 10/06/18 at 18:00; Stop 10/07/18 at 17:59 Sodium Chloride 1,000 ml @ 125 mls/hr Q8H IV Last administered on 10/07/18at 05:17; Start 10/06/18 at 17:57; Stop 10/07/18 at 17:56 Acetaminophen (Tylenol) 650 mg PRN Q4HRS PRN PO FEVER Last administered on 10/06/18at 18:44; Start 10/06/18 at 18:00; Stop 10/07/18 at 17:59 Albuterol/ Ipratropium (Duoneb) 3 ml RTQID NEB ; Start 10/06/18 at 20:00; Stop 10/07/18 at 19:59 Piperacillin Sod/ Tazobactam Sod (Zosyn Per Pharmacy) 1 each PRN DAILY PRN MC SEE COMMENTS; Start 10/06/18 at 18:00; Stop 10/06/18 at 20:55; Status DC Vancomycin HCl (Vanco Per Pharmacy) 1 each PRN DAILY PRN MC SEE COMMENTS; Start 10/06/18 at 18:00; Stop 10/06/18 at 20:55; Status DC Sodium Chloride 500 ml @ As Directed STK-MED ONCE .ROUTE ; Start 10/06/18 at 18:13; Stop 10/06/18 at 18:14; Status DC Vancomycin HCl (Vancomycin) 1 gm STK-MED ONCE .ROUTE ; Start 10/06/18 at 18:13; Stop 10/06/18 at 18:14; Status DC Sodium Chloride 500 ml @ As Directed STK-MED ONCE .ROUTE ; Start 10/06/18 at 18:14; Stop 10/06/18 at 18:15; Status DC Vancomycin HCl (Vancomycin) 1 gm STK-MED ONCE .ROUTE ; Start 10/06/18 at 18:14; Stop 10/06/18 at 18:15; Status DC Lactated Ringer's 1,000 ml @ 2,000 mls/hr 1X ONCE IV ; Start 10/06/18 at 18:45; Stop 10/06/18 at 19:14; Status DC Acetaminophen (Tylenol) 1,000 mg 1X ONCE PO Last administered on 10/06/18at 18:45; Start 10/06/18 at 18:45; Stop 10/06/18 at 18:49; Status DC Ketorolac Tromethamine (Toradol 30mg Vial) 30 mg 1X ONCE IV Last administered on 10/06/18at 19:56; Start 10/06/18 at 19:45; Stop 10/06/18 at 20:12; Status DC Morphine Sulfate (Morphine 10mg Syringe) 10 mg 1X ONCE SQ Last administered on 10/06/18at 19:56; Start 10/06/18 at 20:00; Stop 10/06/18 at 20:12; Status DC Sodium Chloride 50 ml @ As Directed STK-MED ONCE .ROUTE ; Start 10/06/18 at 20:10; Stop 10/06/18 at 20:11; Status DC Piperacillin Sod/ Tazobactam Sod (Zosyn) 3.375 gm STK-MED ONCE IV ; Start 10/06/18 at 20:11; Stop 10/06/18 at 20:12; Status DC Piperacillin Sod/ Tazobactam Sod (Zosyn Per Pharmacy) 1 each PRN DAILY PRN MC SEE COMMENTS; Start 10/06/18 at 21:00 Vancomycin HCl (Vanco Per Pharmacy) 1 each PRN DAILY PRN MC SEE COMMENTS Last administered on 10/07/18at 02:10; Start 10/06/18 at 21:00 Piperacillin Sod/ Tazobactam Sod 3.375 gm/Sodium Chloride 50 ml @ 100 mls/hr Q6HRS IV Last administered on 10/07/18at 00:00; Start 10/07/18 at 00:00 Vancomycin HCl 750 mg/Sodium Chloride 250 ml @ 250 mls/hr Q12H IV ; Start 10/07/18 at 08:00 Vancomycin HCl (Vancomycin Trough Level) 1 each 1X ONCE MC ; Start 10/08/18 at 07:30; Stop 10/08/18 at 07:31 Active Scripts Active (SANA WALKER DO) Dragon Disclaimer This chart was dictated in whole or in part using Voice Recognition software in a busy, high-work load, and often noisy Emergency Department environment. It may contain unintended and wholly unrecognized errors or omissions. (DIONISIO RAMOS MD) Dragon Disclaimer This chart was dictated in whole or in part using Voice Recognition software in a busy, high-work load, and often noisy Emergency Department environment. It may contain unintended and wholly unrecognized errors or omissions. (SANA WALKER DO) Problem Qualifiers Primary Impression: Pneumonia Pneumonia type: due to unspecified organism Laterality: bilateral Lung location: unspecified part of lung Qualified Codes: J18.9 - Pneumonia, unspecified organism SANA WALKER DO Oct 06, 2018 17:56 DIONISIO RAMOS MD Oct 07, 2018 05:53
[2018-10-06] MEDS ORDERED: VANCOMYCIN PER PHARMACY MC PRN (18:00)
[2018-10-06] MEDS ORDERED: ONDANSETRON PF 4 MG/2 ML VIAL. IV PRN (18:00)
[2018-10-06] MEDS ORDERED: PIP/TAZO PER PHARMACY MC PRN ×2 (18:00→21:00)
[2018-10-06] MEDS ORDERED: PIPERACILLIN/TAZOBACTAM 3.375 GM in IV NORMAL SALINE 50ML 50 ML IV ONE (18:00)
[2018-10-06] MEDS ORDERED: ACETAMINOPHEN 325 MG TABLET PO PRN (18:00)
[2018-10-06] MEDS ORDERED: diazePAM 5 MG TABLET PO ONE (18:00)
[2018-10-06] MEDS ORDERED: VANCOMYCIN 1.25 GM in IV NORMAL SALINE 500ML 500 ML IV ONE (18:00)
[2018-10-06] MEDS ORDERED: VANCOMYCIN 1 GM VIAL. ONE ×2 (18:13→18:14)
[2018-10-06] MEDS ORDERED: IV NORMAL SALINE 500ML 500 ML ONE ×2 (18:13→18:14)
[2018-10-06] MEDS ORDERED: IV RINGERS SOLUTION,LACTATED 1,000 ML IV ONE (18:45)
[2018-10-06] MEDS ORDERED: ACETAMINOPHEN 500 MG TABLET PO ONE (18:45)
[2018-10-06 18:51] LABS: BASO % 0 % (0-3); EOS # 0.1 x10^3/uL (0.0-0.7); EOS % 1 % (0-3); HEMOGLOBIN 8.9 g/dL (12.0-15.5); LYMPH # 1.3 x10^3/uL (1.0-4.8); LYMPH % 19 % (24-48); MEAN CORPUSCULAR HEMOGLOBIN 32 pg (25-35); MEAN CORPUSCULAR HGB CONC 33 g/dL (31-37); MEAN CORPUSCULAR VOLUME 97 fL (79-100); MONO % 15 % (0-9); NEUT # 4.5 x10^3uL (1.8-7.7); NEUT % 65 % (31-73); PLATELET COUNT 91 x10^3/uL (140-400); RED BLOOD COUNT 2.78 x10^6/uL (3.50-5.40); RED CELL DISTRIBUTION WIDTH 19.1 % (11.5-14.5); WHITE BLOOD COUNT 6.9 x10^3/uL (4.0-11.0)
[2018-10-06] MEDS ORDERED: KETOROLAC 30 MG/ML VIAL. IV ONE (19:45)
[2018-10-06 19:52] LABS: ANION GAP 9 (6-14); CARBON DIOXIDE 25 mmol/L (21-32); GFR 64.7; TOTAL BILIRUBIN 0.6 mg/dL (0.2-1.0)
[2018-10-06] MEDS ORDERED: MORPHINE SULFATE 10 MG/ML SYRINGE. SQ ONE (20:00)
[2018-10-06] MEDS: IPRATRPIUM/ALBUTEROL 0.5/2.5MG 3 ML NEBU. NEB SCH (20:00)
[2018-10-06] MEDS: IV NORMAL SALINE 1,000ML 1,000 ML IV SCH (20:09)
[2018-10-06] MEDS ORDERED: IV NORMAL SALINE 50ML 50 ML ONE (20:10)
[2018-10-06] MEDS ORDERED: PIPERACILLIN/TAZOBACTAM 3.375 GM VIAL IV ONE (20:11)
[2018-10-06 20:17] LABS: ALBUMIN 2.2 g/dL (3.4-5.0); ALBUMIN/GLOBULIN RATIO 0.5 (1.0-1.7); ALK PHOS 137 U/L (46-116); ALT (SGPT) 50 U/L (14-59); AST (SGOT) 41 U/L (15-37); BLOOD UREA NITROGEN 11 mg/dL (7-20); BUN/CREATININE RATIO 11 (6-20); C REACTIVE PROTEIN 205.3 mg/L (0-3.3); CALCIUM 8.2 mg/dL (8.5-10.1); CHLORIDE 101 mmol/L (98-107); GLUCOSE 133 mg/dL (70-99); POTASSIUM 3.1 mmol/L (3.5-5.1); SODIUM 135 mmol/L (136-145); TOTAL PROTEIN 6.4 g/dL (6.4-8.2)
[2018-10-06 21:16] VITALS: BP 98/66
[2018-10-06 22:55] VITALS: BP 92/59
[2018-10-06 23:45] LABS: % SEGS 76 % (35-66)
[2018-10-06 23:46] LABS: % BANDS 2 % (0-9); % LYMPHS 13 % (24-48); % MONOS 9 % (0-10); ANISOCYTOSIS SLIGHT; PLT ESTIMATE DECREASED (ADEQUATE); POLYCHROMASIA SLIGHT; SCHISTOCYTES OCC
[2018-10-07] MEDS: VANCOMYCIN PER PHARMACY MC PRN (02:10)
[2018-10-07] MEDS: IPRATRPIUM/ALBUTEROL 0.5/2.5MG 3 ML NEBU. NEB SCH ×3 (04:55→16:00)
[2018-10-07 05:02] LABS: BARBITURATES NEG (NEG); BENZODIAZEPINES NEG (NEG); CANNABINOIDS NEG (NEG); COCAINE NEG (NEG); METHADONE POS (NEG); OPIATES POS (NEG); PHENCYCLIDINE NEG (NEG)
[2018-10-07 05:06] LABS: AMPHETAMINE/METHAMPHETAMINE NEG (NEG)
[2018-10-07] MEDS: IV NORMAL SALINE 1,000ML 1,000 ML IV SCH ×2 (05:17→09:57)
[2018-10-07 05:48] VITALS: BP 106/70
[2018-10-07] MEDS: PIPERACILLIN/TAZOBACTAM 3.375 GM in IV NORMAL SALINE 50ML 50 ML IV SCH ×6 (06:45→23:17)
[2018-10-07] MEDS ORDERED: POTASSIUM CHLORIDE 20 MEQ TABLET.ER. PO ONE (07:15)
[2018-10-07] MEDS: VANCOMYCIN 750 MG in IV NORMAL SALINE 250ML 250 ML IV SCH ×2 (08:25→19:30)
--- NOTE | 2018-10-07 13:34 | HP ---
ADMIT DATE: 10/06/2018 HISTORY OF PRESENT ILLNESS: The patient is a 33-year-old female patient who presented to the Emergency Room with fever and severe generalized body aches, pleuritic type chest pain. The patient stated that this has been going on for a few days. She states that she was treated for pneumonia a few weeks ago and was in the hospital with miscarriage. She had some vaginal bleed at that time that has stopped. She stated that she does continue to smoke tobacco. She has been a drug user in the past and she is positive for hepatitis C. She was seen in the [facility] and treated yesterday. CT scan of the chest showed that she has multilobar infiltrate consistent with pneumonia; however, according to the patient, she was told that mostly her pneumonia has resolved and she was given antibiotic to continue treatment as an outpatient. I do not have any report of the CT scan or any other documentation from [facility]. In any case, the patient was admitted with pneumonia and was treated for possible health-acquired pneumonia with IV antibiotic in the form of Zosyn and vancomycin. She was also found to have a multitude of other abnormalities including anemia, thrombocytopenia. She has also hypokalemia and her C-reactive protein and sedimentation rate are extremely high. PAST MEDICAL HISTORY: According to her significant for chronic hepatitis C. She is also known to have anxiety and polysubstance abuse. Does have also chronic normochromic normocytic anemia and apparently was admitted in 12/2017 for abscess and cellulitis of left ankle joint that was treated with incision and drainage and was treated with broad-spectrum antibiotic. FAMILY HISTORY: Noncontributory. SOCIAL HISTORY: She apparently lives with her friend. According to her she smokes few cigarettes a day, does not drink alcohol; however, she is positive for methadone and opiate. She is currently unemployed and apparently has no children. ALLERGIES: SHE IS ALLERGIC TO PAXIL. REVIEW OF SYSTEMS: As per history of present illness. The patient has severe generalized polyarthralgia. She is unable even to move her upper extremities to feed herself according to her. PHYSICAL EXAMINATION: GENERAL: On arrival to the Emergency Room, she was pale, somewhat tachypneic, febrile, but no jaundice or cyanosis. No lymphadenopathy, no thyromegaly. No jugular venous distention. No lower limb edema. VITAL SIGNS: Her heart rate was 119, blood pressure was 127/57, temperature was 102.1, respiratory rate was 22 and oxygen saturation was 94%. HEENT: Normocephalic, atraumatic. NECK: Supple. HEART: Showed normal first and second heart sounds. No gallop, rub or murmur. CHEST: Clear to auscultation. No crepitation or rhonchi. ABDOMEN: Distended, soft, nontender. No guarding or rigidity. No organomegaly. All hernial orifice intact. Bowel sounds normal. NEUROLOGIC: She is awake, alert, responding appropriately. All her cranial nerves intact. She has difficulty moving her extremities, although I could not see any obvious swelling of her right upper extremity joints or right knee joint. LABORATORY DATA: On arrival showed a white cell count of 6900, hemoglobin 8.9, hematocrit 27, MCV 97 and platelet count of 91,000. Her chemistry showed a serum sodium 135, potassium 3.1, chloride 101, bicarbonate 25, anion gap of 9, BUN 11, creatinine 1, estimated GFR was 64 mL per minute. Her glucose was 133, lactic acid was 1.3, calcium was 8.2. Total bilirubin and ALT normal. AST and alkaline phosphatase slightly elevated. Her C-reactive protein was 105 mg/dL. Total protein was 6.4, albumin was 2.2. Her toxic screen was positive for opiates and methadone, negative for barbiturate, phencyclidine, amphetamine, methamphetamine, benzodiazepine, cocaine, cannabinoids and ethyl alcohol. She apparently has no imaging studies done in our hospital. Unfortunately, I could not find any records from the [facility]. She was basically admitted with community-acquired pneumonia, normochromic normocytic anemia, thrombocytopenia, has hyponatremia, hypokalemia, severe protein-calorie malnutrition, history of chronic hepatitis C, tobacco use. PLAN: To continue with IV antibiotic in the form of vancomycin and Zosyn. Continue with pain management. Continue with IV fluid. I will repeat all her lab works today and adjust her potassium to make sure the potassium is within normal limit. I will also start her on nonsteroidal anti-inflammatory medication. WALT RAMIREZ MD DR: JUSTIN/libra JOB#: [id number] / [id number]
[2018-10-07 15:17] LABS: BASO # 0.1 x10^3/uL (0.0-0.2); BASO % 1 % (0-3); EOS % 0 % (0-3); HEMATOCRIT 22.5 % (36.0-47.0); HEMOGLOBIN 7.6 g/dL (12.0-15.5); LYMPH # 1.9 x10^3/uL (1.0-4.8); LYMPH % 21 % (24-48); MEAN CORPUSCULAR HEMOGLOBIN 32 pg (25-35); MEAN CORPUSCULAR HGB CONC 34 g/dL (31-37); MEAN CORPUSCULAR VOLUME 95 fL (79-100); MONO # 1.2 x10^3/uL (0.0-1.1); MONO % 13 % (0-9); NEUT % 65 % (31-73); PLATELET COUNT 94 x10^3/uL (140-400); RED BLOOD COUNT 2.36 x10^6/uL (3.50-5.40); RED CELL DISTRIBUTION WIDTH 18.3 % (11.5-14.5); WHITE BLOOD COUNT 9.2 x10^3/uL (4.0-11.0)
[2018-10-07 15:20] LABS: ALBUMIN 1.9 g/dL (3.4-5.0); ALBUMIN/GLOBULIN RATIO 0.4 (1.0-1.7); CALCIUM 8.2 mg/dL (8.5-10.1); GFR 64.7; POTASSIUM 4.1 mmol/L (3.5-5.1); TOTAL BILIRUBIN 0.5 mg/dL (0.2-1.0); TOTAL PROTEIN 6.6 g/dL (6.4-8.2)
[2018-10-07 15:39] VITALS: BP 139/78
--- NOTE | 2018-10-07 18:34 | RAD ---
EXAM: CHEST 2 VIEWS. HISTORY: Chest pain, cough. COMPARISON: None. FINDINGS: Frontal and lateral views of the chest are obtained. Airspace infiltrates are noted in both bases and inferiorly in the right upper lobe, consistent with multifocal pneumonia. There are small bilateral pleural effusions. There is no pneumothorax. The heart is not enlarged. IMPRESSION: 1. Multifocal pneumonia as above. Small bilateral pleural effusions. Electronically signed by: Kianna Wahl MD (10/07/2018 6:31 PM) [facility]
[2018-10-07 19:10] VITALS: BP 117/72
[2018-10-07] MEDS ORDERED: ACETAMINOPHEN 325 MG TABLET PO ONE (19:24)
[2018-10-07] MEDS: ACETAMINOPHEN 325 MG TABLET PO PRN (20:12)
[2018-10-07 23:15] VITALS: BP 119/66
[2018-10-08] MEDS: ACETAMINOPHEN 325 MG TABLET PO PRN ×3 (01:47→18:12)
[2018-10-08] MEDS: PIPERACILLIN/TAZOBACTAM 3.375 GM in IV NORMAL SALINE 50ML 50 ML IV SCH ×4 (06:06→23:46)
[2018-10-08 06:32] VITALS: BP 103/69
[2018-10-08 08:24] LABS: VANC TR 6.3 mcg/mL (10.0-20.0)
[2018-10-08] MEDS: VANCOMYCIN PER PHARMACY MC PRN (09:08)
[2018-10-08] MEDS: VANCOMYCIN 1 GM in IV NORMAL SALINE 250ML 250 ML IV SCH ×2 (09:39→20:35)
[2018-10-08 11:00] VITALS: BP 137/81
[2018-10-08 14:46] VITALS: BP 107/69
[2018-10-08] MEDS ORDERED: MORPHINE SULFATE 10 MG/ML SYRINGE. SQ ONE (16:00)
[2018-10-08 19:54] VITALS: BP 131/75
[2018-10-08] MEDS: LACTOBACILLUS RHAMNOSUS GG 1 CAPSULE. PO SCH (20:33)
[2018-10-08 23:54] VITALS: BP 110/70
[2018-10-09] MEDS: ACETAMINOPHEN 325 MG TABLET PO PRN ×3 (00:12→17:03)
--- NOTE | 2018-10-09 04:35 | PN ---
DATE: 10/08/2018 SUBJECTIVE: The patient is resting slightly propped up in bed, continued to complain of generalized aches and pains. She continued to spike her temperature up to 102.4. Her blood cultures have grown gram-positive cocci in clusters in 2/4 bottles. The identification and sensitivity is still pending at the time of this dictation. Unfortunately, we lost her IV line. PHYSICAL EXAMINATION: GENERAL: When I examined her this afternoon, she was resting slightly propped up in bed, in no apparent respiratory distress, pale, not jaundiced, cyanosis or thyromegaly. No jugular venous distention. No limb edema. VITAL SIGNS: Her heart rate was 124, blood pressure was 137/81, temperature was 102.4, respiratory rate was 22 and oxygen saturation was 91%. HEAD, EYES, EARS, NOSE AND THROAT: Showed normocephalic, atraumatic. NECK: Supple. HEART: Showed normal first and second heart sounds with no gallop, rub or murmur. CHEST: Clear to auscultation, no crepitation or rhonchi. ABDOMEN: Distended, soft, nontender. NEUROLOGIC: She was sleepy, but arousable. All cranial nerves intact. She moves extremities without difficulty, although she is mostly bedbound. ASSESSMENT: Her chest x-ray showed that she continued to have multifocal pneumonia with airspace infiltrate noted in both bases and inferiorly in the right upper lobe consistent with multifocal pneumonia. There are small bilateral pleural effusions, no pneumothorax. Heart is not enlarged. Given that the multifocal pneumonia is resistant, she is growing gram-positive cocci, I am concerned that the patient has endocarditis. I will arrange for her to have an echocardiogram tomorrow and we will arrange for her to have a PICC line and will decide on further management according to the culture and sensitivity and discussion with probably the Infectious Disease specialist. WALT RAMIREZ MD DR: JUSTIN/libra JOB#: [id number] / [id number]
[2018-10-09 04:44] VITALS: BP 113/71
[2018-10-09] MEDS: PIPERACILLIN/TAZOBACTAM 3.375 GM in IV NORMAL SALINE 50ML 50 ML IV SCH ×3 (05:38→18:34)
[2018-10-09 08:06] LABS: BASO % 0 % (0-3); EOS % 0 % (0-3); HEMATOCRIT 21.6 % (36.0-47.0); HEMOGLOBIN 7.2 g/dL (12.0-15.5); LYMPH # 1.8 x10^3/uL (1.0-4.8); LYMPH % 18 % (24-48); MEAN CORPUSCULAR HEMOGLOBIN 32 pg (25-35); MEAN CORPUSCULAR HGB CONC 33 g/dL (31-37); MEAN CORPUSCULAR VOLUME 95 fL (79-100); MONO # 1.1 x10^3/uL (0.0-1.1); MONO % 10 % (0-9); NEUT # 7.5 x10^3uL (1.8-7.7); NEUT % 72 % (31-73); PLATELET COUNT 103 x10^3/uL (140-400); RED BLOOD COUNT 2.28 x10^6/uL (3.50-5.40); RED CELL DISTRIBUTION WIDTH 18.6 % (11.5-14.5); WHITE BLOOD COUNT 10.5 x10^3/uL (4.0-11.0)
[2018-10-09 08:06] LABS: ALBUMIN 1.6 g/dL (3.4-5.0); ALBUMIN/GLOBULIN RATIO 0.3 (1.0-1.7); CALCIUM 7.9 mg/dL (8.5-10.1); CREATININE 1.1 mg/dL (0.6-1.0); GFR 57.9; POTASSIUM 3.6 mmol/L (3.5-5.1); TOTAL BILIRUBIN 0.5 mg/dL (0.2-1.0); TOTAL PROTEIN 6.2 g/dL (6.4-8.2)
--- NOTE | 2018-10-09 08:14 | CARD ---
MR#: [id number] Date of Study: 10/08/2018 Ordering Physician: WALT RAMIREZ, Referring Physician: WALT RAMIREZ, Tech: Karly Heard MIRIAM APPROVED REPORT EXAM: Two-dimensional and M-mode echocardiogram with Doppler and color Doppler. Other Information Quality : GoodHR: 117bpm Rhythm : Tachycardia INDICATION 2D DIMENSIONS Left Atrium(2D)3.4 (1.6-4.0cm)IVSd0.5 (0.7-1.1cm) Aortic Root(2D)2.4 (2.0-3.7cm)LVDd5.1 (3.9-5.9cm) PWd0.5 (0.7-1.1cm)LA Qjvbbk98 (18-58mL) LVDs3.3 (2.5-4.0cm)FS (%) 36.0 % SV80.6 mlLVEF(%)65.3 (>50%) CO9.4 L/min Aortic Valve AoV Peak Gregorio.165.2cm/sAoV VTI21.5cm AO Peak GR.10.9mmHgAO Mean GR.6mmHg MARGUERITE (VTI)3.09cm2 Mitral Valve MV E Glnndtws930.5cm/sMV DECEL DKAP51id MV A Rckxrgan594.3cm/sE/A Ratio1.1 MV A Umboejuq56wx Tricuspid Valve TR P. Bdthboiq371br/sRAP HHMKCJKI1jcHz TR Peak Gr.17rxAtZWQK44wmTj LEFT VENTRICLE The left ventricle is normal size. There is normal left ventricular wall thickness. The left ventricu lar systolic function is normal. The ejection fraction is estimated at 60-65%. There is normal LV seg mental wall motion. The left ventricular diastolic function and filling is normal for age. No left ve ntricle thrombus noted on this study. There is no ventricular septal defect visualized. There is no l eft ventricular aneurysm. There is no mass noted in the left ventricle. RIGHT VENTRICLE The right ventricle is normal size. There is normal right ventricular wall thickness. The right ventr icular systolic function is normal. ATRIA The left atrium size is normal. The right atrium size is normal. The interatrial septum is intact wit h no evidence for an atrial septal defect or patent foramen ovale as noted on 2-D or Doppler imaging. AORTIC VALVE The aortic valve is normal in structure and function. Doppler and Color Flow revealed no significant aortic regurgitation. There is no significant aortic valvular stenosis. There is no aortic valvular v egetation. MITRAL VALVE The mitral valve is normal in structure and function. There is no evidence of mitral valve prolapse. There is no mitral valve stenosis. Doppler and Color-flow revealed trace to mild mitral regurgitation . TRICUSPID VALVE The tricuspid valve is normal in structure and function. Doppler and Color Flow revealed moderate tri cuspid regurgitation. There is moderate pulmonary hypertension. The PA pressure was estimated at 58 m mHg. There is no tricuspid valve prolapse or vegetation. There is no tricuspid valve stenosis. PULMONIC VALVE The pulmonary valve is normal in structure and function. Doppler and Color Flow revealed trace pulmon ic valvular regurgitation. There is no pulmonic valvular stenosis. GREAT VESSELS The aortic root is normal in size. The ascending aorta is normal in size. The IVC is normal in size a nd collapses >50% with inspiration. PERICARDIAL EFFUSION There is no pleural effusion. There is no evidence of significant pericardial effusion. Critical Notification Critical Value: No <Conclusion> The left ventricular systolic function is normal. The ejection fraction is estimated at 60-65%. There is normal LV segmental wall motion. Trace to mild mitral regurgitation. Moderate tricuspid regurgitation. There is moderate pulmonary hypertension. The PA pressure was estimated at 58 mmHg. There is no evidence of significant pericardial effusion. Signed by : Jaspal Curtis, Electronically Approved : 10/09/2018 08:13:55
[2018-10-09] MEDS: LACTOBACILLUS RHAMNOSUS GG 1 CAPSULE. PO SCH (08:37)
[2018-10-09] MEDS: VANCOMYCIN 1 GM in IV NORMAL SALINE 250ML 250 ML IV SCH (08:39)
[2018-10-09 10:42] VITALS: BP 113/69
[2018-10-09 15:55] VITALS: BP 110/70
[2018-10-09] MEDS ORDERED: IOHEXOL 350 MG/ML 100 ML VIAL. IV ONE (16:30)
[2018-10-09] MEDS: HYDROmorphone PF 1 MG/ML DISP.SYRIN IV PRN ×2 (17:03→19:20)
--- NOTE | 2018-10-09 18:31 | RAD ---
PQRS Compliance Statement: One or more of the following individualized dose reduction techniques were utilized for this examination: 1. Automated exposure control 2. Adjustment of the mA and/or kV according to patient size 3. Use of iterative reconstruction technique CT angiography chest with contrast 10/09/2018 3:59 PM INDICATION: Chest pain, hypoxia COMPARISON: Chest radiograph October 07, 2018 TECHNIQUE: Axial CT images of the chest were obtained after the intravenous administration of nonionic contrast. Coronal and sagittal reformats are provided. Maximum intensity projection images of the thoracic vasculature are provided. FINDINGS: 13 x 10 mm solid noncalcified pulmonary nodules identified in the left upper lobe (series 3, image 21). 6 mm solid noncalcified pulmonary nodule is identified in the superior segment left lower lobe (series 3, image 25). Left upper lobe solid noncalcified pulmonary nodule measures 10 mm (image 26). Nodular opacity in the anterior left upper lobe measures 14 x 12 mm (series 3, image 49). Moderate right and small left effusions with adjacent compressive atelectasis versus infiltrates. Right upper lobe solid noncalcified pulmonary nodule measures 9 mm (series 3, image 37). Mixed interstitial and alveolar airspace disease identified in the right upper lobe with interstitial thickening. Soft tissues identified in the superior mediastinum which may reflect residual thymic tissue. Right paratracheal lymph node measures 10 mm by short axis. Right hilar lymph node measures 16 mm by short axis (series 3, image 37). Subcarinal lymph node measures 17 mm by short axis. Heart size is within normal limits. No pericardial effusion. Liver, spleen, bilateral adrenal glands, visualized portions of the pancreas and kidneys appear normal. No suspicious osseous normality. There is adequate. Opacification of the pulmonary arterial system. No filling defects are identified to suggest acute or chronic pulmonary emboli. IMPRESSION: 1. Multifocal nodular areas of airspace consolidation measuring up to 14 x 12 mm the left upper lobe may represent multifocal pneumonia versus septic emboli versus neoplastic etiology (i.e metastatic disease, although this is favored to be less likely in this age group). Consideration may be given for an atypical or fungal organisms such as histoplasmosis. 2. Moderate right and small left pleural effusions with adjacent compressive atelectasis versus pulmonary infiltrates. Mild groundglass changes with intralobular septal thickening in the right upper lobe may represent pulmonary edema versus pulmonary hemorrhage versus pulmonary infiltrates. 3. Mediastinal and right hilar lymphadenopathy may be reactive. Attention on follow-up exams is recommended. 4. There is no evidence for acute or chronic pulmonary embolism. Electronically signed by: Tanja Nguyen MD (10/09/2018 6:28 PM) [facility]
[2018-10-09 19:33] VITALS: BP 105/61
[2018-10-09 19:49] LABS: BGAS PH 7.47 (7.35-7.45)
--- NOTE | 2018-10-10 00:17 | PN ---
DATE: 10/09/2018 SUBJECTIVE: The patient is resting, slightly propped up in bed, complaining of severe chest pain. She is tachypneic, hypoxic. Her oxygen saturation is only 85% on room air that has improved to 92% on 4 liters of oxygen. OBJECTIVE: GENERAL: On examining her, she looked pale, not jaundiced, cyanosed. No thyromegaly. No jugular venous distention. No lower limb edema. VITAL SIGNS: Her heart rate was 99, blood pressure was 113/69, temperature was 98.9, respiratory rate was 18 and oxygen saturation was 85% on room air that has improved to 92% on 4 liters of oxygen by nasal cannula. HEAD, EYES, EARS, NOSE AND THROAT: Showed normocephalic, atraumatic. NECK: Supple. HEART: Showed normal first and second heart sounds with no gallop or murmur. CHEST: Shows central trachea, equal bilateral expansion, air entry, vesicular sounds with bilateral basal crepitation, more posteriorly. I could not appreciate any rhonchi. ABDOMEN: Distended, soft, nontender. No guarding or rigidity. No organomegaly. All hernial orifices intact. Bowel sounds normal. NEUROLOGIC: She was awake, alert, responding appropriately. All cranial nerves intact. She moves all extremities without difficulty. She is mostly bed bound. Her intake over the last 24 hours was 4065, no output was recorded. LABORATORY DATA: Her lab work this morning showed a white cell count of 10,500, hemoglobin 7.2, hematocrit 21.6, MCV 95, and platelet count of 103,000. Her chemistry showed a serum sodium 136, potassium 3.6, chloride 102, bicarbonate 23, anion gap of 11, BUN 8, creatinine 1.1, estimated GFR was 58 mL per minute. Her glucose was 102, calcium was 7.9. Total bilirubin, AST, ALT, alkaline phosphatase were normal. Total protein was 6.2, albumin was 1.6. Prothrombin time was 10.2, INR of 1. Vancomycin trough level was low. ASSESSMENT: 1. Multifocal pneumonia with airspace infiltrates noted. 2. She is growing gram-positive cocci, for which she is currently on IV vancomycin and Zosyn. An echocardiogram showed no evidence of endocarditis. PLAN: My plan is to arrange for her to have a CT scan of the chest with PE protocol as I am worried that she might have also drawn some emboli and I will also arrange for her to have arterial blood gases and dependent on the outcome of these tests, we will decide as she might require to be transferred to [facility] as she might ultimately require intubation and mechanical ventilation as well as consult by the Infectious Disease and still concerned that she might have underlying endocarditis. WALT RAMIREZ MD DR: JUSTIN/libra JOB#: [id number] / [id number]
== END 2018-10-09 20:47 | disposition short-term general hospital (02) | DRG 194 ==
LOC: ER 16:41 → 1 SOUTH 18:00 → ER 20:48
PROVIDERS: ADMIT Internal Medicine; ATTEND Internal Medicine
PROC: 02HV33Z Insertion of Infusion Device into Superior Vena Cava, Percutaneous Approach (ICD-10-PCS; principal; 2018-10-08)
PROC: B548ZZA Ultrasonography of Superior Vena Cava, Guidance (ICD-10-PCS; 2018-10-08)
DX: J18.9 Pneumonia, unspecified organism (principal); E46 Unspecified protein-calorie malnutrition; E87.1 Hypo-osmolality and hyponatremia; B18.2 Chronic viral hepatitis C; D64.9 Anemia, unspecified; F41.9 Anxiety disorder, unspecified; D69.6 Thrombocytopenia, unspecified; E87.6 Hypokalemia; F17.210 Nicotine dependence, cigarettes, uncomplicated; Z91.19 Patient's noncompliance with other medical treatment and regimen; Z88.8 Allergy status to other drugs, medicaments and biological substances; Z68.20 Body mass index [BMI] 20.0-20.9, adult
CPT/HCPCS: 36415; 36569; 36600; 71046; 71275; 80053; 80202; 80307; 82550; 82803; 83605; 84484; 84702; 85007; 85025; 85610; 86140; 87040; 87205; 93306; 94640; 96361; 96365; 96372; 96375; J1170; J1885; J2060; J2270; J2405; J2543; J3010; J3370; J7040; J7050; Q9967; 99285-25; J7030

== ENCOUNTER 2019-04-20 08:27 | Emergency (ER) | payer SELFPAY ==
[~2019-04-20] VITALS: Ht 165.1 cm; Wt 52.6 kg
[2019-04-20] MEDS ORDERED: IV NORMAL SALINE 1,000ML 1,000 ML IV ONE (09:00)
--- NOTE | 2019-04-20 09:34 | PHYS DOC ---
Past History Past Medical History: Bronchitis, Hepatitis, Pneumonia, Other Past Surgical History: Other Smoking: Cigarettes Alcohol Use: None Drug Use: None Adult General Chief Complaint Chief Complaint: GENERALIZED BODY ACHES HPI HPI 33-year-old female presents with 4-5 day history of diffuse body aches. She has been feeling poor overall during this time. She states that she hurts all over. She has a history of diabetes treated twice with IV antibiotic regimens. She did not complete those regimens. She is very worried her endocarditis his back. The patient denies any drug use. She is very tearful and emotional. She is not sure if she has had a fever. She did not have a fever on arrival. Review of Systems Review of Systems Constitutional: Body aches. Denies fever or chills [] Eyes: Denies change in visual acuity, redness, or eye pain [] HENT: Denies nasal congestion or sore throat [] Respiratory: Denies cough or shortness of breath [] Cardiovascular: Rapid heartbeat. No additional information not addressed in HPI [] GI: Denies abdominal pain, nausea, vomiting, bloody stools or diarrhea [] : Denies dysuria or hematuria [] Musculoskeletal: Denies back pain or joint pain [] Integument: Scalp psoriasis[] Neurologic: Denies headache, focal weakness or sensory changes [] Endocrine: Denies polyuria or polydipsia [] All other systems were reviewed and found to be within normal limits, except as documented in this note. Current Medications Current Medications Current Medications Medications (Trade) Dose Ordered Sig/Chris Start Time Stop Time Status Last Admin Dose Admin Sodium Chloride 1,000 ml @ 1,000 mls/hr 1X ONCE 04/20/19 09:00 04/20/19 09:59 Allergies Allergies Allergies Coded Allergies Type Severity Reaction Last Updated Verified paroxetine Allergy Intermediate 10/09/18 Yes I S O L A T I O N *CONTACT* Allergy Unknown 10/12/18 Yes Physical Exam Physical Exam Constitutional: Well developed, well nourished, no acute distress. [] HENT: Normocephalic, atraumatic, bilateral external ears normal, oropharynx moist, no oral exudates, nose normal. [] Eyes: PERRLA, EOMI, conjunctiva normal, no discharge. [] Neck: Normal range of motion, no tenderness, supple, no stridor. [] Cardiovascular: Heart rate 126 regular rhythm, no murmur [] Lungs & Thorax: Bilateral breath sounds clear to auscultation [] Abdomen: Bowel sounds normal, soft, no tenderness, no masses, no pulsatile ma sses. [] Skin: bilateral upper extremities, many trackmarks and pockmarks consistent with IV drug use. Large amount of skin flakes all over the scalp[] Back: No tenderness, no CVA tenderness. [] Extremities: No tenderness, no cyanosis, no clubbing, ROM intact, no edema. [] Neurologic: Alert and oriented X 3, normal motor function, normal sensory function, no focal deficits noted. [] Psychologic: Affect flight of ideas, mood anxious. [] Current Patient Data Vital Signs Vital Signs Date Time Temp Pulse Resp B/P (MAP) Pulse Ox O2 Delivery O2 Flow Rate FiO2 04/20/19 08:27 98.9 136 22 110/50 (70) 94 Room Air EKG EKG Sinus tachycardia, rate 133, normal axis, no ST elevations or depressions.[] Radiology/Procedures Radiology/Procedures [] Impressions: EXAM: AP View of the chest DATE: 04/20/2019 9:03 AM INDICATION: Tachycardia COMPARISON: 10/07/2018 FINDINGS: The heart is not enlarged. Mediastinal and hilar contours are normal. Diffuse left lung airspace opacities are now seen, new compared to 10/07/2018 likely consolidative process such as pneumonia. The previously seen right-sided airspace opacities have since resolved. No pleural effusion or pneumothorax. IMPRESSION: 1. New peripheral left airspace opacities favored to represent consolidative process such as pneumonia. Right-sided opacities have since resolved. Electronically signed by: Juliano Gonzalez MD (04/20/2019 9:43 AM) [id number] DICTATED AND SIGNED BY: JULIANO GONZALEZ MD DATE: 04/20/19 0943 CC: YEIMY MORATAYA DO; PCP,NO ~ Course & Med Decision Making Course & Med Decision Making Pertinent Labs and Imaging studies reviewed. (See chart for details) The patient does not really give a consistent story. Her primary concern is she has diffuse body aches and chills very worried about endocarditis. She thinks that she did 23/08/29 IV infusions the first time, was diagnosed with recurrent endocarditis. She states that she did go on 30 days the second time. Both of these were within the last 9 months. Patient denies drug use, but she has obvious signs of IV drug use. The patient's white count is normal. Her BUN and creatinine are elevated. She is tachycardic. Her lactic acid is 3.5. This is suspicious for sepsis. I ordered 30 mL/kg of normal saline IV fluids based on her actual weight. On reassessment her heart rate has improved to 107. Her chest x-ray suggests left sided pneumonia. Blood cultures have been drawn. Given the patient's history of infective endocarditis I will give her Zosyn and vancomycin. I have discussed the patient with Dr. Moon, the hospitalist at [facility] and he has accepted the patient for transfer and admission to the ICU. 47 minutes of critical care time was spent on this patient exclusive of other billable procedures. [] Dragon Disclaimer Dragon Disclaimer This electronic medical record was generated, in whole or in part, using a voice recognition dictation system. Departure Departure: Impression: Primary Impression: Pneumonia Additional Impressions: Sepsis Hx of bacterial endocarditis Disposition: XF SHT-TRM HOSP Condition: GUARDED Referrals: PCP,NO (PCP) Scripts No Active Prescriptions or Reported Meds Sepsis Assessment: Date and Time of Assessment Date: Apr 20, 2019 Time: 09:00 Vital Signs Vital Signs Vital Signs Date Time Temp Pulse Resp B/P (MAP) Pulse Ox O2 Delivery O2 Flow Rate FiO2 04/20/19 08:27 98.9 136 22 110/50 (70) 94 Room Air Respirations Respiratory Effort: Normal Respiratory Pattern: Normal Cardiovascular Pulse Rhythm: Regular HEART: S1 and S2 normal Lung Sounds Breath Sounds: Diminished Capillary Refill Capillary Refill: Rt Hand < 3 seconds Peripheral Pulse Pulse Location: Monitor Pulse Strength: Normal (2+) Pulse Assessment Method: Monitor Integumentary Skin: Other Skin Moisture: Dry Skin Turgor: Normal Skin Color: no erythema Fingernail Color: WNL Sepsis Assessment: Date and Time of Assessment Date: Apr 20, 2019 Time: 10:23 Vital Signs Vital Signs Vital Signs Date Time Temp Pulse Resp B/P (MAP) Pulse Ox O2 Delivery O2 Flow Rate FiO2 04/20/19 08:27 98.9 136 22 110/50 (70) 94 Room Air Respirations Respiratory Effort: Normal Respiratory Pattern: Normal Cardiovascular Pulse Rhythm: Regular HEART: S1 and S2 normal Lung Sounds Breath Sounds: Diminished Capillary Refill Capillary Refill: Rt Hand < 3 seconds Peripheral Pulse Pulse Location: Monitor Pulse Strength: Normal (2+) Pulse Assessment Method: Monitor Integumentary Skin: Other Skin Moisture: Dry Skin Turgor: Normal Skin Color: no erythema Fingernail Color: WNL Problem Qualifiers Primary Impression: Pneumonia Pneumonia type: due to unspecified organism Laterality: left Lung location: unspecified part of lung Qualified Codes: J18.9 - Pneumonia, unspecified organism Additional Impressions: Sepsis Sepsis type: sepsis due to unspecified organism Sepsis acute organ dysfunction status: without acute organ dysfunction Qualified Codes: A41.9 - Sepsis, unspecified organism YEIMY MORATAYA DO Apr 20, 2019 09:34
[2019-04-20 09:42] LABS: BASO # 0.1 x10^3/uL (0.0-0.2); BASO % 2 % (0-3); EOS % 1 % (0-3); HEMATOCRIT 36.1 % (36.0-47.0); HEMOGLOBIN 11.7 g/dL (12.0-15.5); LYMPH # 0.9 x10^3/uL (1.0-4.8); LYMPH % 11 % (24-48); MEAN CORPUSCULAR HEMOGLOBIN 30 pg (25-35); MEAN CORPUSCULAR HGB CONC 32 g/dL (31-37); MEAN CORPUSCULAR VOLUME 92 fL (79-100); MONO # 0.3 x10^3/uL (0.0-1.1); MONO % 3 % (0-9); NEUT % 84 % (31-73); PLATELET COUNT 57 x10^3/uL (140-400); RED BLOOD COUNT 3.91 x10^6/uL (3.50-5.40); RED CELL DISTRIBUTION WIDTH 18.3 % (11.5-14.5); WHITE BLOOD COUNT 8.3 x10^3/uL (4.0-11.0)
--- NOTE | 2019-04-20 09:46 | RAD ---
EXAM: AP View of the chest DATE: 04/20/2019 9:03 AM INDICATION: Tachycardia COMPARISON: 10/07/2018 FINDINGS: The heart is not enlarged. Mediastinal and hilar contours are normal. Diffuse left lung airspace opacities are now seen, new compared to 10/07/2018 likely consolidative process such as pneumonia. The previously seen right-sided airspace opacities have since resolved. No pleural effusion or pneumothorax. IMPRESSION: 1. New peripheral left airspace opacities favored to represent consolidative process such as pneumonia. Right-sided opacities have since resolved. Electronically signed by: Juliano Gonzalez MD (04/20/2019 9:43 AM) [id number]
[2019-04-20 09:51] LABS: CREATININE 2.1 mg/dL (0.6-1.0); GFR 27.5; POTASSIUM 4.2 mmol/L (3.5-5.1)
[2019-04-20 09:56] LABS: ALBUMIN 2.1 g/dL (3.4-5.0); ALBUMIN/GLOBULIN RATIO 0.3 (1.0-1.7); TOTAL BILIRUBIN 1.4 mg/dL (0.2-1.0); TOTAL PROTEIN 8.6 g/dL (6.4-8.2)
[2019-04-20 10:05] LABS: INFLUENZA A PATIENT NEGATIVE (NEGATIVE); INFLUENZA B PATIENT NEGATIVE (NEGATIVE)
[2019-04-20] MEDS ORDERED: PIPERACILLIN/TAZOBACTAM 3.375 GM VIAL IV ONE (10:06)
[2019-04-20] MEDS ORDERED: IV NORMAL SALINE 50ML 50 ML ONE (10:06)
[2019-04-20] MEDS ORDERED: PIPERACILLIN/TAZOBACTAM 3.375 GM in IV NORMAL SALINE 50ML 50 ML IV ONE (10:15)
[2019-04-20] MEDS ORDERED: NORMAL SALINE IV SCH (10:15)
[2019-04-20] MEDS ORDERED: KETOROLAC 30 MG/ML VIAL. ONE (10:26)
[2019-04-20] MEDS ORDERED: KETOROLAC 30 MG/ML VIAL. IVP ONE ×2 (10:30)
[2019-04-20] MEDS ORDERED: VANCOMYCIN 1.25 GM in IV NORMAL SALINE 250ML 250 ML IV ONE (10:45)
[2019-04-20 10:50] VITALS: BP 84/57
[2019-04-20 11:29] LABS: % BANDS 16 % (0-9); % EOS 2 % (0-5); % LYMPHS 8 % (24-48); % MONOS 6 % (0-10); % SEGS 68 % (35-66)
[2019-04-20 11:37] LABS: PLT ESTIMATE DECREASED (ADEQUATE)
[2019-04-20 11:38] LABS: TOXIC VACUOLATION PRESENT
[2019-04-20 11:44] LABS: AMPHETAMINE/METHAMPHETAMINE NEG (NEG); BARBITURATES NEG (NEG); BENZODIAZEPINES NEG (NEG); CANNABINOIDS NEG (NEG); COCAINE NEG (NEG); METHADONE POS (NEG); OPIATES POS (NEG); PHENCYCLIDINE NEG (NEG)
[2019-04-20 12:04] LABS: COLOR,URINE YELLOW
[2019-04-20 12:05] LABS: BACTERIA,URINE MOD /HPF (0-FEW); BILIRUBIN,URINE NEG (NEG); CLARITY,URINE CLOUDY; GLUCOSE,URINE NEG (NEG); NITRITE,URINE NEG (NEG); SQUAMOUS EPITHELIAL CELL,UR MANY /LPF; WBC,URINE 20-40 /HPF (0-4)
--- NOTE | 2019-04-20 18:11 | EKG ---
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
== END 2019-04-20 11:25 | disposition short-term general hospital (02) ==
LOC: ER 08:27
DX: J18.9 Pneumonia, unspecified organism (principal); A41.9 Sepsis, unspecified organism; F17.210 Nicotine dependence, cigarettes, uncomplicated; E11.9 Type 2 diabetes mellitus without complications; Z88.8 Allergy status to other drugs, medicaments and biological substances
CPT/HCPCS: 36415; 71045; 80053; 80307; 81001; 81025; 83605; 84484; 85007; 85025; 87040; 87070; 87086; 87205; 87804; 87880; 93005; 96365; 96368; 96375; 99291; J1885; J2543; J3370; J7050; J7030

== ENCOUNTER 2021-02-25 19:53 | Inpatient (IN) | payer OTHER ==
[~2021-02-25] VITALS: Ht 165.1 cm; Wt 61.8 kg
[2021-02-25] MEDS ORDERED: 0.9 % SODIUM CHLORIDE 10 ML DISP.SYRIN. IV PRN (20:30)
[2021-02-25] MEDS ORDERED: NOREPINEPHRINE BITARTRATE 8 MG in IV DEXTROSE 5% 250 ML IV PRN (20:30)
[2021-02-25] MEDS ORDERED: IV NORMAL SALINE 1,000ML 1,000 ML IV ONE (20:30)
--- NOTE | 2021-02-25 20:52 | PHYS DOC ---
Past History Past Medical History: Bronchitis, Hepatitis, Pneumonia, Other Additional Past Medical Histor: endocarditis (EASTON ALAS APRN) Past Medical History: CHF (DIONISIO RAMOS MD) Past Surgical History: Other Additional Past Surgical Histo: LEFT LOBECTOMY (EASTON ALAS APRN) Smoking: Cigarettes Alcohol Use: None Drug Use: None (EASTON ALAS APRN) Adult General Chief Complaint Chief Complaint: CHEST PAIN HPI HPI Patient is a 35-year-old female patient with history of endocarditis, anxiety, who presents to the ED today with multiple complaints. Patient is complaining of 8 out of 10 left-sided chest pain, symptoms began 3-4 days ago, patient describes the pain as sharp and intermittent. Denies anything specifically exacerbating or relieving the pain. She is also complaining of her kidneys hurting. Symptoms began 3 to 4 days ago. She is also complaining of a fever of 100.3 for the last 3 days. Denies any coughing, congestion. She states she was tested for COVID-19 a pharmacy in [place] today and the test was negative. (EASTON ALAS APRN) Review of Systems Review of Systems Constitutional: Reports fever Eyes: Denies change in visual acuity, redness, or eye pain [] HENT: Denies nasal congestion or sore throat [] Respiratory: Denies cough or shortness of breath [] Cardiovascular: Reports left-sided chest pain GI: Denies abdominal pain, nausea, vomiting, bloody stools or diarrhea [] : Reports kidney pain. Denies dysuria or hematuria [] Musculoskeletal: Denies back pain or joint pain [] Integument: Denies rash or skin lesions [] Neurologic: Denies headache, focal weakness or sensory changes [] Endocrine: Denies polyuria or polydipsia [] All other systems were reviewed and found to be within normal limits, except as documented in this note. (EASTON ALAS APRN) Current Medications Current Medications Current Medications Medications (Trade) Dose Ordered Sig/Chris Start Time Stop Time Status Last Admin Dose Admin Aspirin (Layne Aspirin) 325 mg 1X ONCE 02/25/21 21:00 02/25/21 21:01 Norepinephrine Bitartrate 8 mg/ Dextrose 258 ml @ 9.8 mls/hr CONT PRN 02/25/21 20:30 Sodium Chloride 1,000 ml @ 1,000 mls/hr 1X ONCE 02/25/21 20:30 02/25/21 21:29 Sodium Chloride (Normal Saline Flush) 10 ml QSHIFT PRN 02/25/21 20:30 (EASTON ALAS BRANCH SALES MANAGER) Allergies Allergies Allergies Coded Allergies Type Severity Reaction Last Updated Verified paroxetine Allergy Intermediate 10/09/18 Yes I S O L A T I O N *CONTACT* Allergy Unknown 10/12/18 Yes (EASTON ALAS BRANCH SALES MANAGER) Physical Exam Physical Exam Constitutional: Well developed, well nourished, no acute distress, non-toxic appearance. [] HENT: Normocephalic, atraumatic, bilateral external ears normal, oropharynx moist, no oral exudates, nose normal. [] Eyes: PERRLA, EOMI, conjunctiva normal, no discharge. [] Neck: Normal range of motion, no tenderness, supple, no stridor. [] Cardiovascular:Heart rate regular rhythm, no murmur [] Lungs & Thorax: Bilateral breath sounds clear to auscultation [] Abdomen: Bowel sounds normal, soft, no tenderness, no masses, no pulsatile masses. [] Skin: Scabs noted throughout patient's body specifically from head, abdomen, lower extremities, chest and back, patient states she had an allergic reaction to Paxil that she was prescribed to a week ago Back: No tenderness, no CVA tenderness. [] Extremities: No tenderness, no cyanosis, no clubbing, ROM intact, no edema. [] Neurologic: Alert and oriented X 3, normal motor function, normal sensory function, no focal deficits noted. [] Psychologic: Affect normal, judgement normal, mood normal. [] (EASTON ALAS BRANCH SALES MANAGER) Current Patient Data Vital Signs Vital Signs Date Time Temp Pulse Resp B/P (MAP) Pulse Ox O2 Delivery O2 Flow Rate FiO2 02/25/21 20:27 98.6 100 18 100/53 (69) 98 Room Air (EASTON ALAS BRANCH SALES MANAGER) EKG EKG [address] Craig sinus rhythm heart rate 95 no STEMI [] (EASTON ALAS BRANCH SALES MANAGER) Radiology/Procedures Radiology/Procedures [] (EASTON ALAS BRANCH SALES MANAGER) Radiology/Procedures [address] [address] IMAGING REPORT Signed PATIENT: ALPESH AUGUST RACCOUNT: [id number] : 1985 LOCATION: ER AGE: 35 SEX: F EXAM STATUS: REG ER ORD. PHYSICIAN: EASTON ALAS APRN REASON: chest pain PROCEDURE: PORTABLE CHEST 1V AP chest. HISTORY: Chest pain AP view was taken of the chest. There is fullness at the left hilum. There are clips from prior surgery at the left hilum, recurrent mass is possible or deformity from surgery I do not have a recent study for comparison. CT could be of benefit. There are mild infiltrates in the right lung base. Heart is normal in size. There is no definite effusion. Patient's had a rib resection on the left. IMPRESSION: 1. Previous surgery at the left hilum, left hilum has fullness correlation with the recent prior study or CT could be of benefit. 2. Mild right lung base infiltrate. Electronically signed by: Pj Aaron MD (02/25/2021 9:56 PM) [facility] DICTATED AND SIGNED BY: PJ AARON MD DATE: 02/25/212153 CC: DIONISIO RAMOS MD; EASTON ALAS APRN; PCP,NO ~MTH0 0 (DIONISIO RAMOS MD) Heart Score C/O Chest Pain: Yes Risk Factors: Risk Factors: DM, Current or recent (<one month) smoker, HTN, HLP, family history of CAD, obesity. Risk Scores: Risk Factors: DM, Current or recent (<one month) smoker, HTN, HLP, family history of CAD, obesity. (EASTON ALAS APRN) Course & Med Decision Making Course & Med Decision Making Pertinent Labs and Imaging studies reviewed. (See chart for details) This is a 35-year-old female patient presenting to the ED today with multiple complaints including chest pain, kidney pain, fevers, symptoms for 3 to 4 days. 2200 pending labs and imaging. Care tx for Dr. Craig (EASTON ALAS APRN) Course & Med Decision Making Discussed presentation, testing and tx with Dr. Curtis - Advised he would consult on Pt. could be admitted at [facility]. Discussed presentation, testing and tx. plan with Dr. Alexandria Mahoney. advised to admit her under his name and to continue current antibiotic started in ED- Rocephin and Vancomycin. Impression: 1. Chest Pain 2, Holosystolic murmur 3. Hx. of Endocarditis 4. Anemia Hgb= 10.8 5. Hyponatremia 129 6. Elevated D-dimer 2.79 7. CHF-diastolic dysfunction = BMP 1251 8. Elevated Alk. Phos. 149 9. Hx. polysubstance Abuse 10. Renal Insuf BUN 21/Creat 1.6 (DIONISIO RAMOS MD) Dragon Disclaimer Dragon Disclaimer This electronic medical record was generated, in whole or in part, using a voice recognition dictation system. (EASTON ALAS APRN) Departure Departure: Impression: Primary Impression: Chest pain Referrals: PCP,NO (PCP) Scripts No Active Prescriptions or Reported Meds Dragon Disclaimer This chart was dictated in whole or in part using Voice Recognition software in a busy, high-work load, and often noisy Emergency Department environment. It may contain unintended and wholly unrecognized errors or omissions. (DIONISIO RAMOS MD) Dragon Disclaimer This chart was dictated in whole or in part using Voice Recognition software in a busy, high-work load, and often noisy Emergency Department environment. It may contain unintended and wholly unrecognized errors or omissions. (DIONISIO RAMOS MD) Attending Signature Attending Signature I have participated in the care of this patient and I have reviewed and agree with all pertinent clinical information above including history, exam, and recommendations. (DIONISIO RAMOS MD) EASTON ALAS APRN Feb 25, 2021 20:51 DIONISIO RAMOS MD Feb 26, 2021 00:27
[2021-02-25] MEDS ORDERED: ASPIRIN 325 MG TABLET PO ONE (21:00)
--- NOTE | 2021-02-25 21:58 | RAD ---
AP chest. HISTORY: Chest pain AP view was taken of the chest. There is fullness at the left hilum. There are clips from prior surge ry at the left hilum, recurrent mass is possible or deformity from surgery I do not have a recent naty dy for comparison. CT could be of benefit. There are mild infiltrates in the right lung base. Heart i s normal in size. There is no definite effusion. Patient's had a rib resection on the left. IMPRESSION: 1. Previous surgery at the left hilum, left hilum has fullness correlation with the recent prior stud y or CT could be of benefit. 2. Mild right lung base infiltrate. Electronically signed by: Pj Aaron MD (02/25/2021 9:56 PM) [facility]
[2021-02-25 22:39] LABS: BASO % 1 % (0-3); EOS % 1 % (0-3); HEMATOCRIT 31.8 % (36.0-47.0); HEMOGLOBIN 10.8 g/dL (12.0-15.5); LYMPH # 0.8 x10^3/uL (1.0-4.8); LYMPH % 13 % (24-48); MEAN CORPUSCULAR HEMOGLOBIN 32 pg (25-35); MEAN CORPUSCULAR HGB CONC 34 g/dL (31-37); MEAN CORPUSCULAR VOLUME 94 fL (79-100); MONO # 0.7 x10^3/uL (0.0-1.1); MONO % 12 % (0-9); NEUT # 4.2 x10^3uL (1.8-7.7); NEUT % 74 % (31-73); PLATELET COUNT 72 x10^3/uL (140-400); RED CELL DISTRIBUTION WIDTH 15.3 % (11.5-14.5); WHITE BLOOD COUNT 5.7 x10^3/uL (4.0-11.0)
[2021-02-25] MEDS ORDERED: IV NORMAL SALINE 100ML 100 ML ONE (22:48)
[2021-02-25] MEDS ORDERED: VANCOMYCIN 1 GM VIAL. ONE (22:48)
[2021-02-25] MEDS ORDERED: IV NORMAL SALINE 250ML 250 ML ONE (22:48)
[2021-02-25 22:54] LABS: ANION GAP 8 (6-14); BLOOD UREA NITROGEN 21 mg/dL (7-20); BUN/CREATININE RATIO 13 (6-20); CALCIUM 8.4 mg/dL (8.5-10.1); CARBON DIOXIDE 23 mmol/L (21-32); CHLORIDE 98 mmol/L (98-107); CREATININE 1.6 mg/dL (0.6-1.0); GFR 37.1; GLUCOSE 102 mg/dL (70-99); POTASSIUM 4.6 mmol/L (3.5-5.1); SODIUM 129 mmol/L (136-145)
[2021-02-25] MEDS ORDERED: VANCOMYCIN 1 GM in IV NORMAL SALINE 250ML 250 ML IV ONE (23:00)
[2021-02-25 23:02] LABS: ALBUMIN 2.6 g/dL (3.4-5.0); ALBUMIN/GLOBULIN RATIO 0.5 (1.0-1.7); ALK PHOS 149 U/L (46-116); ALT (SGPT) 44 U/L (14-59); AST (SGOT) 34 U/L (15-37); MAGNESIUM 2.3 mg/dL (1.8-2.4); TOTAL BILIRUBIN 1.2 mg/dL (0.2-1.0); TOTAL PROTEIN 7.7 g/dL (6.4-8.2)
[2021-02-25] MEDS ORDERED: MORPHINE SULFATE 10 MG/ML SYRINGE. SQ ONE (23:15)
[2021-02-25 23:31] LABS: INFLUENZA A PATIENT NEGATIVE (NEGATIVE); INFLUENZA B PATIENT NEGATIVE (NEGATIVE)
[2021-02-25] MEDS ORDERED: DIPH,PERTUSS(ACELL),TET VAC/PF 0.5 ML SYRINGE. VAX IM ONE (23:50)
--- NOTE | 2021-02-26 | EKG ---
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
[2021-02-26] MEDS ORDERED: FUROSEMIDE 40 MG/4 ML VIAL IVP ONE ×2 (00:30→02:30)
[2021-02-26] MEDS ORDERED: ONDANSETRON PF 4 MG/2 ML VIAL. IVP PRN (02:30)
[2021-02-26 02:32] LABS: BARBITURATES NEG (NEG); BENZODIAZEPINES NEG (NEG); CANNABINOIDS NEG (NEG); COCAINE NEG (NEG); METHADONE POS (NEG); OPIATES POS (NEG); PHENCYCLIDINE NEG (NEG)
[2021-02-26 02:34] LABS: BILIRUBIN,URINE NEG (NEG); CLARITY,URINE HAZY; COLOR,URINE YELLOW; GLUCOSE,URINE NEG (NEG); NITRITE,URINE NEG (NEG)
[2021-02-26 02:35] LABS: BACTERIA,URINE FEW /HPF (0-FEW); SQUAMOUS EPITHELIAL CELL,UR FEW /LPF
[2021-02-26 02:36] LABS: AMPHETAMINE/METHAMPHETAMINE NEG (NEG)
[2021-02-26] MEDS ORDERED: ENOXAPARIN ** NOTE DOSE ** SYRINGE SQ ONE (02:45)
[2021-02-26] MEDS: VANCOMYCIN PER PHARMACY MC PRN ×2 (02:56→03:21)
[2021-02-26 03:00] VITALS: BP 90/53
[2021-02-26] MEDS: MORPHINE SULFATE 4 MG/ML DISP.SYRIN. IV PRN ×4 (03:09→20:01)
[2021-02-26] MEDS: ACETAMINOPHEN 325 MG TABLET PO PRN ×3 (03:31→20:02)
[2021-02-26 05:00] VITALS: BP 97/58
[2021-02-26] MEDS ORDERED: IPRATRPIUM/ALBUTEROL 0.5/2.5MG 3 ML NEBU. NEB SCH (08:00)
[2021-02-26] MEDS ORDERED: VANCOMYCIN 1 GM in IV NORMAL SALINE 250ML 250 ML IV SCH (09:00)
[2021-02-26] MEDS ORDERED: IPRATRPIUM/ALBUTEROL 0.5/2.5MG 3 ML NEBU. NEB PRN (10:45)
--- NOTE | 2021-02-26 11:19 | HP ---
DATE OF SERVICE: 02/26/2021 ADMIT DATE: 02/26/2021 ATTENDING PHYSICIAN: Dr. Mahoney. CHIEF COMPLAINT: Fevers and weakness. HISTORY OF PRESENT ILLNESS: The patient is a 35-year-old female admitted through the ED with chest wall pain, generalized weakness, low-grade fevers and back pain. She has had fevers up to 100.3 degrees Fahrenheit over the last 3 days. She states she tested negative for COVID-19 in [place] 7 days ago. The x-ray did not show any overt failure or infiltrates. She does have a history of bacterial endocarditis, treated 2 years ago at [facility]. She says she had 6 weeks of intravenous antibiotics at that time. She used to [facility] more than 5 years ago. She adamantly denied any recent intravenous drug use. Her drug screen did test positive for opiates and methadone. PAST MEDICAL HISTORY: Significant for the endocarditis, treated. She at that time stated she did not have a cardiac murmur, although one is found on this admission. She has a previous left lobectomy, exact diagnosis is unclear. She has had bronchiectasis, hepatitis and pneumonia. CURRENT MEDICATIONS: None. ALLERGIES: SHE HAS ALLERGIES TO PAROXETINE, WHICH IS UNCLEAR. SOCIAL HISTORY: She is a nonsmoker. She denies any alcohol use. FAMILY HISTORY: Mom and dad are alive at age 59 and 60 respectively. Mom, age 59, has breast cancer. She has never had children, never been . REVIEW OF SYSTEMS: Significant for the generalized weakness, low-grade fevers. She has not had any visual changes. Vague symptoms of generalized pain and debilitation. Unfortunately, her history is sketchy at this time and so it is hard to determine what is actually going on. She tells me she has not had a cardiac murmur in the past, although we did find a holosystolic murmur on exam this time. PHYSICAL EXAMINATION: GENERAL: When I saw her, this is an alert female who appears much older than her stated age. VITAL SIGNS: Initial vital signs showed a temperature of 101.3 degrees Fahrenheit, heart rate was 90 and regular, blood pressure 97/58, oxygen saturation 92% on room air. HEENT: Head is without trauma. Pupils are reactive. Sclerae nonicteric. The oropharynx is clear. NECK: Supple, no bruits. LUNGS: Actually clear. CARDIOVASCULAR: Showed regular heart tones. Normal S1 and S2. There is a grade 3/6 holosystolic murmur best heard at the left sternal border. The murmur does not radiate to the carotids. Peripheral pulses are palpable and full. ABDOMEN: Soft. No guarding or rebound tenderness. Bowel sounds are normoactive. EXTREMITIES: Show no cyanosis or edema. NEUROLOGIC: Focally intact. PERTINENT LABORATORY AND X-RAY STUDIES: The chest x-ray shows that her cardiac silhouette is actually within normal limits. The costophrenic angles are sharp. There are no effusions, infiltrates or decompensation identified. PERTINENT LABORATORY STUDIES: Blood cultures drawn in the ER are pending. I do not know how many they srping last time, whether it was 2 or 3. Her admission hemoglobin was 10.8 g/dL, white count 5700. Chemistry panel: Sodium 129, creatinine is 1.6 mg/dL. Toxicology screen positive for opiates and methadone. Serology negative for influenza A and B. ASSESSMENT: 1. A 35-year-old female with a febrile illness. 2. Suspicious findings of bacterial endocarditis given the new murmur according to her history and the history of endocarditis in the past. 3. History of intravenous substance abuse in the past. 4. Anemia of chronic disease. 5. Chronic kidney disease stage III. 6. Asymptomatic hyponatremia, mild. PLAN: 1. Admit to the inpatient unit. 2. Blood cultures were drawn in the ED and are pending at this time. 3. Empiric antibiotics have been ordered and will be continued. 4. Formal Cardiology consultation. 5. Echocardiogram. I have ordered initially a transthoracic echo. We may need to get her to have a transthoracic echo for better diagnosis. That cannot be done here, she may need to be transferred. We will decide based on what her disposition pending Cardiology consultation. MAYNOR/MARIO/MONICA DR: Fatoumata TID: [id number]
[2021-02-26 11:47] VITALS: BP 94/52
[2021-02-26] MEDS: guaiFENesin 300 MG/15 ML LIQUID PO PRN ×2 (13:24→20:02)
--- NOTE | 2021-02-26 13:44 | PDOC2 ---
CONSULT DOS: DATE: 02/26/21 TIME: 13:44 Reason for Consult: Possible endocarditis Referring Physician: Dr. Mahoney Chief Complaint Fever and generalized weakness Source: Chart review, Patient Problem List Problems Medical Problems: (1) Chest pain Status: Acute History of Present Illness 35-year-old female with history of intravenous drug use and bacterial endocarditis treated at [facility] 2 to 3 years ago with 6 weeks of intravenous antibiotics presented with generalized weakness, low-grade fevers, myalgias and lack of appetite. Upon further interrogation, she also complained of chest pain that she described as sharp in nature and not related to exertion, 8/10 severity. She denied any orthopnea/PND, palpitations or syncope. She had a Covid test in [place] 7 days ago that was negative. Cardiology has been consulted for possible endocarditis especially in lieu of murmur noted on physical exam. Patient denied any intravenous drug use after she was treated for endocarditis 2 years ago. Past Medical History Bacterial endocarditis 2 years ago treated with intravenous antibiotics Bronchiectasis Hepatitis Pneumonia Past Surgical History Left lobectomy Family History Noncontributory Social History Patient denied any smoking, alcohol or recent intravenous drug use. Current Medications Current Medications Aspirin (Layne Aspirin) 325 mg 1X ONCE PO Last administered on 02/25/21at 22:19; Start 02/25/21 at 21:00; Stop 02/25/21 at 21:01; Status DC Sodium Chloride (Normal Saline Flush) 10 ml QSHIFT PRN IV AFTER MEDS AND BLOOD DRAWS; Start 02/25/21 at 20:30; Stop 02/25/21 at 20:59; Status DC Norepinephrine Bitartrate 8 mg/ Dextrose 258 ml @ 9.8 mls/hr CONT PRN IV PER PROTOCOL; Start 02/25/21 at 20:30; Stop 02/25/21 at 20:59; Status DC Sodium Chloride 1,000 ml @ 1,000 mls/hr 1X ONCE IV Last administered on 02/25/21at 22:20; Start 02/25/21 at 20:30; Stop 02/25/21 at 21:29; Status DC Ceftriaxone Sodium 2 gm/ Sodium Chloride 100 ml @ 200 mls/hr 1X ONCE IV Last administered on 02/25/21at 22:52; Start 02/25/21 at 23:00; Stop 02/25/21 at 23:29; Status DC Vancomycin HCl 1 gm/Sodium Chloride 250 ml @ 250 mls/hr 1X ONCE IV Last administered on 02/25/21at 23:11; Start 02/25/21 at 23:00; Stop 02/25/21 at 23:59; Status DC Sodium Chloride 250 ml @ As Directed STK-MED ONCE .ROUTE ; Start 02/25/21 at 22:48; Stop 02/25/21 at 22:48; Status DC Ceftriaxone Sodium (Rocephin) 2 gm STK-MED ONCE IV ; Start 02/25/21 at 22:48; Stop 02/25/21 at 22:48; Status DC Vancomycin HCl (Vancomycin) 1 gm STK-MED ONCE .ROUTE ; Start 02/25/21 at 22:48; Stop 02/25/21 at 22:48; Status DC Sodium Chloride 100 ml @ As Directed STK-MED ONCE .ROUTE ; Start 02/25/21 at 22:48; Stop 02/25/21 at 22:49; Status DC Morphine Sulfate (Morphine 10mg Syringe) 10 mg 1X ONCE SQ Last administered on 02/25/21at 23:11; Start 02/25/21 at 23:15; Stop 02/25/21 at 23:16; Status DC Diphtheria/ Pertussis/Tetanus Vacc (ADACEL TDap SYRINGE) 0.5 ml STK-MED ONCE VAX IM ; Start 02/25/21 at 23:50; Stop 02/25/21 at 23:50; Status DC Furosemide (Lasix) 40 mg 1X ONCE IVP Last administered on 02/26/21at 00:59; Start 02/26/21 at 00:30; Stop 02/26/21 at 00:31; Status DC Ondansetron HCl (Zofran) 4 mg PRN Q4HRS PRN IVP NAUSEA/VOMITING; Start 02/26/21 at 02:30; Stop 02/27/21 at 02:29 Acetaminophen (Tylenol) 650 mg PRN Q4HRS PRN PO FEVER > 100.3'F Last administered on 02/26/21at 03:31; Start 02/26/21 at 02:30; Stop 02/27/21 at 02:29 Albuterol/ Ipratropium (Duoneb) 3 ml RTQID NEB ; Start 02/26/21 at 08:00; Stop 02/26/21 at 10:36; Status DC Furosemide (Lasix) 40 mg 1X ONCE IVP ; Start 02/26/21 at 02:30; Stop 02/26/21 at 02:36; Status DC Ceftriaxone Sodium 2 gm/ Sodium Chloride 100 ml @ 200 mls/hr DAILY ONCE IV ; Start 02/26/21 at 09:00; Stop 02/26/21 at 09:29; Status DC Vancomycin HCl 1 gm/Sodium Chloride 250 ml @ 250 mls/hr DAILY IV ; Start 02/26/21 at 09:00; Stop 02/26/21 at 02:47; Status DC Enoxaparin Sodium (Lovenox 60mg Syringe) 60 mg 1X ONCE SQ Last administered on 02/26/21at 03:12; Start 02/26/21 at 02:45; Stop 02/26/21 at 02:46; Status DC Morphine Sulfate (Morphine 4mg Syringe) 4 mg QIDPRN PRN IV pain Last administered on 02/26/21at 09:16; Start 02/26/21 at 02:45; Stop 02/26/21 at 09:45; Status DC Vancomycin HCl (Vanco Per Pharmacy) 1 each PRN DAILY PRN MC SEE COMMENTS Last administered on 02/26/21at 03:21; Start 02/26/21 at 03:00 Vancomycin HCl 750 mg/Sodium Chloride 250 ml @ 250 mls/hr Q24H IV ; Start 02/04 06/24 at 23:00 Vancomycin HCl (Vancomycin Trough Level) 1 each 1X ONCE MC ; Start 02/27/21 at 22:30; Stop 02/27/21 at 22:31 Lactobacillus Rhamnosus (Culturelle) 1 cap BID PO ; Start 02/26/21 at 21:00 Morphine Sulfate (Morphine 4mg Syringe) 4 mg PRN Q4HRS PRN IV pain; Start 02/26/21 at 09:45 Albuterol/ Ipratropium (Duoneb) 3 ml PRN QID PRN NEB SHORTNESS OF BREATH; Start 02/26/21 at 10:45 Ceftriaxone Sodium 2 gm/ Sodium Chloride 100 ml @ 200 mls/hr Q24H IV ; Start 02/26/21 at 16:00; Stop 02/26/21 at 11:35; Status DC Ceftriaxone Sodium 2 gm/ Sodium Chloride 100 ml @ 200 mls/hr Q24H IV ; Start 02/26/21 at 21:00 Lorazepam (Ativan Inj) 1 mg PRN Q6HRS PRN IVP ANXIETY / AGITATION; Start 02/26/21 at 12:00 Guaifenesin (Robitussin) 300 mg PRN Q4HRS PRN PO COUGH Last administered on 02/26/21at 13:24; Start 02/26/21 at 12:00 Active Scripts Active No Active Prescriptions or Reported Medications Allergies: Coded Allergies: paroxetine (Verified Allergy, Intermediate, 10/09/18) I S O L A T I O N *CONTACT* (Verified Allergy, Unknown, 10/12/18) MRSA General: YES: Chills, Fatigue, Malaise PSYCHOLOGICAL ROS: No: Hallucinations Eyes: No: Loss of vision HEENT: No: Epistaxis Respiratory: No: Shortness of breath Cardiovascular: yes: Chest Pain Genitourinary: No: Hen[place]ia Neurological: No: Seizures Skin: No: Rash General: Alert, Oriented X3 HEENT: Atraumatic Lungs: Clear to auscultation Heart: Regular rate, Other (Pansystolic murmur left lower parasternal border) Abdomen: Soft Extremities: No edema Neuro: Normal speech VITALS Vital Signs Date Time Temp Pulse Resp B/P (MAP) Pulse Ox O2 Delivery O2 Flow Rate FiO2 02/26/21 11:47 98.9 85 18 94/52 (66) 95 Room Air Labs Laboratory Tests Test 02/25/21 22:10 02/25/21 22:55 02/26/21 02:00 02/26/21 02:06 White Blood Count 5.7 x10^3/uL (4.0-11.0) Red Blood Count 3.40 x10^6/uL (3.50-5.40) Hemoglobin 10.8 g/dL (12.0-15.5) Hematocrit 31.8 % (36.0-47.0) Mean Corpuscular Volume 94 fL (79-100) Mean Corpuscular Hemoglobin 32 pg (25-35) Mean Corpuscular Hemoglobin Concent 34 g/dL (31-37) Red Cell Distribution Width 15.3 % (11.5-14.5) Platelet Count 72 x10^3/uL (140-400) Neutrophils (%) (Auto) 74 % (31-73) Lymphocytes (%) (Auto) 13 % (24-48) Monocytes (%) (Auto) 12 % (0-9) Eosinophils (%) (Auto) 1 % (0-3) Basophils (%) (Auto) 1 % (0-3) Neutrophils # (Auto) 4.2 x10^3uL (1.8-7.7) Lymphocytes # (Auto) 0.8 x10^3/uL (1.0-4.8) Monocytes # (Auto) 0.7 x10^3/uL (0.0-1.1) Eosinophils # (Auto) 0.0 x10^3/uL (0.0-0.7) Basophils # (Auto) 0.0 x10^3/uL (0.0-0.2) D-Dimer (Pati) 2.79 mg/L (0.00-0.50) Sodium Level 129 mmol/L (136-145) Potassium Level 4.6 mmol/L (3.5-5.1) Chloride Level 98 mmol/L (98-107) Carbon Dioxide Level 23 mmol/L (21-32) Anion Gap 8 (6-14) Blood Urea Nitrogen 21 mg/dL (7-20) Creatinine 1.6 mg/dL (0.6-1.0) Estimated GFR (Cockcroft-Gault) 37.1 BUN/Creatinine Ratio 13 (6-20) Glucose Level 102 mg/dL (70-99) Lactic Acid Level 1.1 mmol/L (0.4-2.0) Calcium Level 8.4 mg/dL (8.5-10.1) Magnesium Level 2.3 mg/dL (1.8-2.4) Total Bilirubin 1.2 mg/dL (0.2-1.0) Aspartate Amino Transf (AST/SGOT) 34 U/L (15-37) Alanine Aminotransferase (ALT/SGPT) 44 U/L (14-59) Alkaline Phosphatase 149 U/L (46-116) Creatine Kinase < 15 U/L (26-192) Creatine Kinase MB (Mass) < 0.5 ng/mL (0.0-3.6) Creatine Kinase MB Relative Index % (0-4) Troponin I High Sensitivity 5 ng/L (4-50) WR-Ian-H-Type Natriuretic Peptide 1251 pg/mL (0-124) Total Protein 7.7 g/dL (6.4-8.2) Albumin 2.6 g/dL (3.4-5.0) Albumin/Globulin Ratio 0.5 (1.0-1.7) Thyroid Stimulating Hormone (TSH) 1.702 uIU/mL (0.358-3.740) Influenza Type A (Rapid) Negative (NEGATIVE) Influenza Type B (Rapid) Negative (NEGATIVE) Urine Collection Type Unknown Urine Color Yellow Urine Clarity Hazy Urine pH 6.0 Urine Specific [place] 1.010 Urine Protein 30 mg/dl (NEG-TRACE) Urine Glucose (UA) Neg mg/dL (NEG) Urine Ketones (Stick) Neg mg/dL (NEG) Urine Blood Mod (NEG) Urine Nitrite Neg (NEG) Urine Bilirubin Neg (NEG) Urine Urobilinogen Dipstick 1.0 mg/dL (0.2 mg/dL) Urine Leukocyte Esterase Trace (NEG) Urine RBC 3-5 /HPF (0-2) Urine WBC 5-10 /HPF (0-4) Urine Squamous Epithelial Cells Few /LPF Urine Bacteria Few /HPF (0-FEW) Urine Opiates Screen Pos (NEG) Urine Methadone Screen Pos (NEG) Urine Barbiturates Neg (NEG) Urine Phencyclidine Screen Neg (NEG) Urine Amphetamine/Methamphetamine Neg (NEG) Urine Benzodiazepines Screen Neg (NEG) Urine Cocaine Screen Neg (NEG) Urine Cannabinoids Screen Neg (NEG) Urine Ethyl Alcohol Neg (NEG) Bedside Urine HCG, Qualitative hcg negative (Negative) Test 02/26/21 05:45 02/26/21 08:47 Prothrombin Time 11.6 SEC (9.4-11.4) Prothromb Time International Ratio 1.1 (0.9-1.1) Activated Partial Thromboplast Time 45 SEC (23-33) Troponin I High Sensitivity 5 ng/L (4-50) 4 ng/L (4-50) Assessment/Plan 1. Acute febrile illness. Patient has history of bacterial endocarditis t reated 2 years ago with intravenous antibiotics as stated above. She denied any recent intravenous drug use. Her urine tested positive for opiates and methadone. She has holosystolic murmur left lower parasternal border. 2D echo in 2019 showed normal left ventricle systolic function with moderate tricuspid regurgitation. Her murmur could be secondary to TR, probably resulting from prior endocarditis. Her blood cultures are pending. If blood cultures come back positive, we will consider transfer to [facility] for KENNETH. 2. Hyponatremia and chronic kidney disease: Per IM 3. Chest pain with atypical features and most probably musculoskeletal. Myocardial infarction has been ruled out. Check 2D echocardiogram -could be done as an outpatient Thank you for your consultation ANGEL OVALLE MD Feb 26, 2021 13:44
[2021-02-26 16:22] VITALS: BP 96/59
[2021-02-26] MEDS: LACTOBACILLUS RHAMNOSUS GG 1 CAPSULE. PO SCH (20:02)
[2021-02-26 20:23] VITALS: BP 97/60
[2021-02-26] MEDS ORDERED: VANCOMYCIN 750 MG in IV NORMAL SALINE 250ML 250 ML IV SCH (23:00)
[2021-02-27] MEDS: MORPHINE SULFATE 4 MG/ML DISP.SYRIN. IV PRN ×3 (00:08→09:25)
[2021-02-27 00:50] VITALS: BP 105/66
[2021-02-27] MEDS ORDERED: ACETAMINOPHEN 325 MG TABLET PO ONE (05:34)
[2021-02-27] MEDS: ACETAMINOPHEN 325 MG TABLET PO PRN ×2 (05:48→13:41)
[2021-02-27 06:04] VITALS: BP 126/60
[2021-02-27 07:07] LABS: BASO % 1 % (0-3); EOS # 0.1 x10^3/uL (0.0-0.7); EOS % 1 % (0-3); HEMOGLOBIN 9.3 g/dL (12.0-15.5); LYMPH # 1.4 x10^3/uL (1.0-4.8); LYMPH % 30 % (24-48); MEAN CORPUSCULAR HEMOGLOBIN 31 pg (25-35); MEAN CORPUSCULAR HGB CONC 33 g/dL (31-37); MEAN CORPUSCULAR VOLUME 94 fL (79-100); MONO # 0.9 x10^3/uL (0.0-1.1); MONO % 20 % (0-9); NEUT # 2.3 x10^3uL (1.8-7.7); NEUT % 48 % (31-73); PLATELET COUNT 86 x10^3/uL (140-400); RED BLOOD COUNT 2.99 x10^6/uL (3.50-5.40); RED CELL DISTRIBUTION WIDTH 15.6 % (11.5-14.5); WHITE BLOOD COUNT 4.7 x10^3/uL (4.0-11.0)
[2021-02-27 07:14] LABS: CALCIUM 7.8 mg/dL (8.5-10.1); GFR 63.9
--- NOTE | 2021-02-27 09:09 | PN ---
DATE: 02/27/2021 ATTENDING PHYSICIAN: Dr. Mahoney. SUBJECTIVE: She is feeling better with IV fluids and antibiotics. She has no new complaints. She does not have any withdrawal symptoms. OBJECTIVE FINDINGS: VITAL SIGNS: Blood pressure this morning is 126/60, temperature 100.7 degrees Fahrenheit, pulse is 92 and regular and oxygen saturation 92% on room air. HEENT: Head is without trauma. Pupils are reactive. Sclerae nonicteric. Oropharynx clear. NECK: Supple, no bruits. LUNGS: Clear. CARDIOVASCULAR: Shows a regular rhythm. She has a normal S1 and a normal S2. There is a loud grade III/ holosystolic murmur that extends from the first heart sound, beginning of the second heart sound. It does not radiate to the carotids nor does it radiate to the axilla. It is best heard at the left sternal border. Peripheral pulses are palpable and full. ABDOMEN: Soft. There is no guarding. EXTREMITIES: Show no cyanosis or edema. I examined her fingernails. I do not find splinter hemorrhages. LABORATORY DATA: Microbiology lab reports that 2 or 3 blood cultures are indeed positive for Gram-positive cocci in clusters suggestive of Staphylococcus species. The ID and sensitivity is pending, will not be available until Monday. ASSESSMENT: A 35-year-old female with; 1. Fevers, new murmurs and positive blood cultures. She has a history of endocarditis and drug use. I suspect she is trying to turn her life around. 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 I am afraid that she has subacute bacterial endocarditis until proven otherwise. 2. History of endocarditis 2 years ago, treated. 3. New holosystolic murmur. PLAN: 1. Cardiology consultation is appreciated. I spoke with Dr. Curtis. 2. I do believe that she needs a transesophageal echocardiogram to assess her valvular status. 3. Await blood cultures. 4. Continue antibiotics. Pending ID and sensitivity. Prognosis is not good in this patient given her age and condition. At this time, I am not sure that her valve is competent. I suspect it is mitral valve insufficiency statistically given her holosystolic murmur, which we will see what the echocardiogram shows. Once again, the transesophageal echo needs to be done at a larger hospital, we do not have that capability here. MAYNOR/DEACON/SAL DR: MAYNOR/libra TID: [id number]
[2021-02-27] MEDS: LACTOBACILLUS RHAMNOSUS GG 1 CAPSULE. PO SCH ×2 (10:21→21:08)
[2021-02-27 10:39] VITALS: BP 96/60
[2021-02-27] MEDS: oxyCODONE/APAP 10/325 1 TAB TABLET PO PRN ×3 (13:41→22:11)
[2021-02-27 15:21] VITALS: BP 98/58
[2021-02-27] MEDS: guaiFENesin 300 MG/15 ML LIQUID PO PRN ×2 (18:13→22:10)
[2021-02-27 19:25] VITALS: BP 110/70
[2021-02-27 22:48] LABS: VANC TR 2.2 mcg/mL (10.0-20.0)
[2021-02-27] MEDS ORDERED: VANCOMYCIN 1 GM in IV NORMAL SALINE 250ML 250 ML IV SCH (23:15)
[2021-02-27] MEDS: LORazepam 1 MG TABLET PO PRN (23:16)
[2021-02-27 23:33] VITALS: BP 107/58
[2021-02-28] MEDS: VANCOMYCIN PER PHARMACY MC PRN (02:10)
[2021-02-28 06:33] VITALS: BP 119/75
[2021-02-28] MEDS: oxyCODONE/APAP 10/325 1 TAB TABLET PO PRN ×4 (06:50→20:46)
--- NOTE | 2021-02-28 08:25 | PN ---
DATE: 02/28/2021 ATTENDING PHYSICIAN: Dr. Mahoney. SUBJECTIVE: The patient is requesting to go to [facility]. I told her they are full. She is on a waiting list to go to [place] for her echocardiogram. OBJECTIVE FINDINGS: VITAL SIGNS: Temperature max is still 101.3 degrees Fahrenheit, blood pressure is 107/58. HEENT: Head is without trauma. Pupils are reactive. Sclerae nonicteric. Oropharynx clear. NECK: Supple. LUNGS: Clear. CARDIOVASCULAR: Showed regular heart tones. There is a grade III/ holosystolic murmur best heard at the left sternal border. The murmur does not radiate to the axilla nor does it radiate to the neck. ABDOMEN: Soft. EXTREMITIES: Without edema. I do not find any splinter hemorrhages in her fingernails. SKIN: Warm and dry. LABORATORY DATA: Two of three positive blood cultures, ID and sensitivities pending. Hemoglobin is 9.3 mg/dL. Vancomycin trough noted. ASSESSMENT: 1. A 35-year-old female with fevers, new murmur and positive blood cultures. She has had a history of endocarditis. Clinically, she has subacute bacterial endocarditis. The bacteria identified is a Staphylococcus species, ID and sensitivity is pending. 2. New holosystolic murmur without any heart failure at this time. 3. History of endocarditis in the past. 4. Substance abuse with intravenous drugs. 5. Anemia of chronic disease. PLAN: 1. I believe she needs a transesophageal echocardiogram, which is not available here. 2. We have placed her on a waiting list to go to [facility]. 3. Recs per Cardiology. 4. Continue antibiotics as ordered. MAYNOR/LUCY MCGUIRE/libra TID: [id number]
[2021-02-28] MEDS: VANCOMYCIN 1 GM in IV NORMAL SALINE 250ML 250 ML IV SCH ×3 (08:36→23:48)
[2021-02-28] MEDS: LACTOBACILLUS RHAMNOSUS GG 1 CAPSULE. PO SCH ×2 (08:39→20:46)
[2021-02-28] MEDS: guaiFENesin 300 MG/15 ML LIQUID PO PRN ×3 (10:54→23:10)
[2021-02-28 11:19] VITALS: BP 102/67
[2021-02-28] MEDS: LORazepam 1 MG TABLET PO PRN ×2 (14:22→20:46)
--- NOTE | 2021-02-28 15:01 | PDOC ---
PROGRESS NOTES Date of Service DOS: DATE: 02/28/21 TIME: 14:58 Diagnosis Problem Problems Medical Problems: (1) Chest pain Status: Acute Assessment 1. Acute febrile illness. Patient has history of bacterial endocarditis treated 2 years ago with intravenous antibiotics as stated above. She denied any recent intravenous drug use. Her urine tested positive for opiates and methadone. She has holosystolic murmur left lower parasternal border. 2D echo in 2019 showed normal left ventricle systolic function with moderate tricuspid regurgitation. Blood cultures positive for Staphylococcus - ID/sensitivity pending. Clinical suspicion for endocarditis high. Transferred to [facility] for transesophageal echocardiogram. 2. Hyponatremia and chronic kidney disease: Per IM 3. Chest pain with atypical features and most probably musculoskeletal. Myocardial infarction has been ruled out. Subjective Continues to complain of atypical chest pain Objective Vital Signs Date Time Temp Pulse Resp B/P (MAP) Pulse Ox O2 Delivery O2 Flow Rate FiO2 02/28/21 11:19 98.5 87 18 102/67 (79) 94 Room Air Intake and Output 02/28/21 07:00 Intake Total 2140 ml Balance 2140 ml Intake Oral 1790 ml IV Total 350 ml # Voids 5 Abdomen: Soft, No tenderness Heart: Regular rate, Other (Pansystolic murmur left lower parasternal border) Extremities: No edema General: Alert HEENT: Atraumatic Lungs: Clear to auscultation Neck: Supple Neuro: Normal speech Psych/Mental Status: Mental status NL Review of Relevant I have reviewed the following items breann (where applicable) has been applied. Labs Laboratory Tests Test 02/27/21 22:25 Vancomycin Level Trough 2.2 mcg/mL (10.0-20.0) L Vancomycin Last Dose Date 02/26/2021 Vancomycin Last Dose Time 2300 Microbiology 02/26/21 Blood Culture - Final, Complete 02/26/21 Urine Culture - Final, Complete Medications Current Medications Medications (Trade) Dose Ordered Sig/Chris Route PRN Reason Start Time Stop Time Status Last Admin Dose Admin Vancomycin HCl 1 gm/Sodium Chloride 250 ml @ 250 mls/hr Q12H IV 02/27/21 23:15 02/28/21 03:00 DC 02/27/21 23:16 Vancomycin HCl 1 gm/Sodium Chloride 250 ml @ 250 mls/hr Q8H IV 02/28/21 08:00 02/28/21 08:36 Vitals/I & O Vital Signs Date Time Temp Pulse Resp B/P (MAP) Pulse Ox O2 Delivery O2 Flow Rate FiO2 02/28/21 11:19 98.5 87 18 102/67 (79) 94 Room Air I & O 02/27/21 02/27/21 02/28/21 15:00 23:00 07:00 Intake Total 600 ml 940 ml 600 ml Balance 600 ml 940 ml 600 ml Justification of Admission: Justification of Admission: Justification of Admission Dx: Yes ANGEL OVALLE MD Feb 28, 2021 15:01
[2021-02-28 16:02] VITALS: BP 104/65
[2021-02-28 19:50] VITALS: BP 93/56
[2021-02-28] MEDS: ONDANSETRON PF 4 MG/2 ML VIAL. IVP PRN (21:05)
[2021-02-28] MEDS: BENZONATATE 100 MG CAPSULE. PO SCH (21:05)
[2021-02-28 23:05] VITALS: BP 122/82
[2021-03-01] MEDS: oxyCODONE/APAP 10/325 1 TAB TABLET PO PRN ×6 (00:47→21:30)
[2021-03-01] MEDS: LORazepam 1 MG TABLET PO PRN ×6 (00:47→21:31)
[2021-03-01] MEDS: ONDANSETRON PF 4 MG/2 ML VIAL. IVP PRN ×6 (00:48→21:30)
[2021-03-01] MEDS: guaiFENesin 300 MG/15 ML LIQUID PO PRN ×3 (04:42→21:30)
[2021-03-01 05:05] VITALS: BP 97/60
--- NOTE | 2021-03-01 07:33 | PDOC ---
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 Vitals Vitals Vital Signs Date Time Temp Pulse Resp B/P (MAP) Pulse Ox O2 Delivery O2 Flow Rate FiO2 03/01/21 05:05 99.3 85 18 97/60 (72) 93 Room Air Weight Weight [ ] Input and Output I.O. Intake and Output 03/01/21 07:00 Intake Total 2570 ml Balance 2570 ml Intake Oral 1970 ml IV Total 600 ml # Voids 4 Laboratory Labs Laboratory Tests Test 02/27/21 22:25 Vancomycin Level Trough 2.2 mcg/mL (10.0-20.0) Vancomycin Last Dose Date 02/26/2021 Vancomycin Last Dose Time 2300 Microbiology Micro Microbiology 02/26/21 Blood Culture - Final, Complete 02/26/21 Urine Culture - Final, Complete Physical Exams HEENT: Neck Supple W Full Motion Chest: Symmetric Lungs: Clear to Auscultation Heart: RRR, other (3/6 systolic murmur ) Abdomen: Soft N/T Extremities: No Edema Neurology: alert, oriented, follow commands Assessment Assessment 1. H/o Infective endocarditis; KENNETH 04/25 with large mobile vegetation attached to the base interatrial septum as noted below 2. Sepsis, bacteremia; BC with Staphylococcus - ID/sensitivity pending. 3. Chest pain with atypical features and most probably musculoskeletal. Myocardial infarction has been ruled out. 4. Hyponatremia and chronic kidney disease: Per IM 5. Anemia, thrombocytopenia 6. Chronic Hep C 7. IV drug use history; she denies any recent IVDU. Her urine tested positive for opiates and methadone 8. Tobaccoism Recommendations Ongoing antibiotic therapy Clinical suspicion for recurrent endocarditis high. Will plan to transferred to [facility] for KENNETH when bed available Supportive care KENNETH <Conclusion> The left ventricular systolic function is normal and the ejection fraction is within normal range. EF 55% There is normal LV segmental wall motion. There is a large mobile vegetation attached to the base interatrial septum. This likely extends to the septal leaflet of the tricuspid valve measure 2 x 3 cm. There is also likely perforation of the anterior tricuspid valve leaflet with resultant severe regurgitation. DATE: 04/23/19 0954 EVARISTO FONSECA MD 03/01/21 1643: CARDIO Progress Notes Assessment Assessment Patient seen and examined I agree with our nurse practitioners assessment and plan. H/o Infective endocarditis; KENNETH 04/25 with large mobile vegetation attached to the base interatrial septum as noted below. Continuing IV antibiotics. Transfer for KENNETH when bed available. Sepsis, bacteremia; BC with Staphylococcus - ID/sensitivity pending. Chest pain with atypical features and most probably musculoskeletal. Myocardial infarction has been ruled out. Hyponatremia and chronic kidney disease: Per IM Anemia, thrombocytopenia Chronic Hep C IV drug use history; she denies any recent IVDU. Her urine tested positive for opiates and methadone KARL GILLIAM APRN Mar 01, 2021 07:33 EVARISTO FONSECA MD Mar 01, 2021 16:43
[2021-03-01] MEDS: BENZONATATE 100 MG CAPSULE. PO SCH ×3 (08:00→21:30)
[2021-03-01] MEDS: LACTOBACILLUS RHAMNOSUS GG 1 CAPSULE. PO SCH ×2 (08:00→21:31)
[2021-03-01 08:15] LABS: GFR 63.9; POTASSIUM 4.7 mmol/L (3.5-5.1)
[2021-03-01 08:21] LABS: VANC TR 23.7 mcg/mL (10.0-20.0)
[2021-03-01] MEDS: VANCOMYCIN 1 GM in IV NORMAL SALINE 250ML 250 ML IV SCH ×2 (08:50→22:38)
[2021-03-01] MEDS: VANCOMYCIN PER PHARMACY MC PRN (09:33)
[2021-03-01 10:22] VITALS: BP 107/72
--- NOTE | 2021-03-01 11:26 | PN ---
DATE: 03/01/2021 ATTENDING PHYSICIAN: Dr. Mahoney. SUBJECTIVE: The patient has multiple somatic complaints. She is not feeling well. OBJECTIVE FINDINGS: VITAL SIGNS: Temperature is 99.3 degrees Fahrenheit, but she does feel warm. Blood pressure is 97/60, pulse 85 and regular. HEENT: Head is without trauma. Pupils are reactive. Sclerae nonicteric. Oropharynx clear. NECK: Supple, no bruits. LUNGS: Clear to auscultation. CARDIOVASCULAR: Showed distant heart tones. Grade 3/6 holosystolic murmur, best heard at the left sternal border. EXTREMITIES: Show no signs of edema. ABDOMEN: Soft. ASSESSMENT: 1. A 35-year-old female with fevers, chills and myalgias. 2. Positive blood cultures, consistent with endocarditis. 3. Holosystolic murmur suggestive of mitral valve insufficiency. Whether or not she has a vegetation remains to be seen. There is a history of [facility] 2 years ago[facility] PLAN: 1. Continue antibiotics. She is on Rocephin and vancomycin as ordered. 2. Vancomycin trough, dose adjusted because of low troughs. 3. Recs per Cardiology. 4. We are awaiting transfer to [place]. She needs to have a transesophageal echocardiogram. MAYNOR/JANICE GALLEGOS: MAYNOR/libra TID: [id number]
[2021-03-01 15:32] VITALS: BP 99/64
[2021-03-01 20:44] VITALS: BP 104/68
[2021-03-01 23:48] VITALS: BP 98/66
[2021-03-02] MEDS: guaiFENesin 300 MG/15 ML LIQUID PO PRN ×2 (01:43→22:10)
[2021-03-02] MEDS: LORazepam 1 MG TABLET PO PRN ×4 (01:44→22:08)
[2021-03-02] MEDS: ONDANSETRON PF 4 MG/2 ML VIAL. IVP PRN ×3 (01:44→17:49)
[2021-03-02] MEDS: oxyCODONE/APAP 10/325 1 TAB TABLET PO PRN ×4 (01:44→22:09)
[2021-03-02] MEDS: LACTOBACILLUS RHAMNOSUS GG 1 CAPSULE. PO SCH ×2 (07:59→21:14)
[2021-03-02] MEDS: BENZONATATE 100 MG CAPSULE. PO SCH ×3 (07:59→21:14)
--- NOTE | 2021-03-02 08:07 | PDOC ---
CARDIO Progress Notes Date & Time Date of Service DATE: 03/02/21 TIME: 08:06 Time of Evaluation 08:06 Subjective Notes No chest pain, palpitations, SOA Vitals Vitals Vital Signs Date Time Temp Pulse Resp B/P (MAP) Pulse Ox O2 Delivery O2 Flow Rate FiO2 03/01/21 23:48 98.0 77 18 98/66 (77) 94 Room Air Weight Weight [ ] Input and Output I.O. Intake and Output 03/02/21 07:00 Intake Total 1070 ml Output Total 0 ml Balance 1070 ml Intake Oral 720 ml IV Total 350 ml Output Urine Total 0 ml Laboratory Labs Laboratory Tests Test 03/01/21 07:30 Sodium Level 136 mmol/L (136-145) Potassium Level 4.7 mmol/L (3.5-5.1) Chloride Level 104 mmol/L (98-107) Carbon Dioxide Level 20 mmol/L (21-32) Anion Gap 12 (6-14) Blood Urea Nitrogen 14 mg/dL (7-20) Creatinine 1.0 mg/dL (0.6-1.0) Estimated GFR (Cockcroft-Gault) 63.9 Glucose Level 90 mg/dL (70-99) Calcium Level 8.0 mg/dL (8.5-10.1) Vancomycin Level Trough 23.7 mcg/mL (10.0-20.0) Vancomycin Last Dose Date 03/01/21 Vancomycin Last Dose Time 0000 Microbiology Micro Microbiology 02/26/21 Blood Culture - Final, Complete 02/26/21 Urine Culture - Final, Complete Physical Exams HEENT: Neck Supple W Full Motion Chest: Symmetric Lungs: Clear to Auscultation Heart: RRR, other (3/6 systolic murmur ) Abdomen: Soft N/T Extremities: No Edema Neurology: alert, oriented, follow commands Assessment Assessment 1. H/o Infective endocarditis; KENNETH 04/25 with large mobile vegetation attached to the base interatrial septum as noted below 2. Sepsis, bacteremia; BC with Staphylococcus 3. Chest pain with atypical features and most probably musculoskeletal. Myocardial infarction has been ruled out. 4. Hyponatremia and chronic kidney disease: Per IM 5. Anemia, thrombocytopenia 6. Chronic Hep C 7. IV drug use history; she denies any recent IVDU. Her urine tested positive for opiates and methadone 8. Tobaccoism Recommendations Ongoing antibiotic therapy Clinical suspicion for recurrent endocarditis high. Will plan to transferred to [facility] for KENNETH today and then return to [facility] Supportive care KENNETH <Conclusion> The left ventricular systolic function is normal and the ejection fraction is within normal range. EF 55% There is normal LV segmental wall motion. There is a large mobile vegetation attached to the base interatrial septum. This likely extends to the septal leaflet of the tricuspid valve measure 2 x 3 cm. There is also likely perforation of the anterior tricuspid valve leaflet with resultant severe regurgitation. DATE: 04/23/19 0954 KARL GILLIAM APRN Mar 02, 2021 08:07
--- NOTE | 2021-03-02 09:19 | PN ---
DATE: 03/02/2021 ATTENDING PHYSICIAN: Dr. Mahoney. SUBJECTIVE: Very flat affect. She is lying asleep. She would not open her eyes and is having a hard time dealing with the issues. She is getting narcotics on a regular basis. I told her I would not prescribe any more. OBJECTIVE FINDINGS: VITAL SIGNS: Blood pressure this morning is 98/66 mmHg, pulse is 77 and regular. She is afebrile, oxygen saturation 94% on room air. HEENT: Head is without trauma. Pupils are reactive. Sclerae are nonicteric. The oropharynx is clear. NECK: Supple, no bruits. LUNGS: Clear. CARDIOVASCULAR: Showed regular rhythm. Normal S1, S2. There is a loud grade 3 holosystolic murmur extending from the first heart sound to the end of the second heart sound. The murmur does not radiate to the axilla or carotids. ABDOMEN: Soft. EXTREMITIES: Without edema. LABORATORY DATA: Blood cultures were indeed positive for Staphylococcus aureus. Interesting enough, it is sensitive to the most of the antibiogram including beta lactams. ASSESSMENT: 1. A 35-year-old female with bacteremia. 2. Clinically, she has subacute bacterial endocarditis. 3. History of IV drug use. 4. Holosystolic murmur. 5. History of endocarditis 2 years ago, treated at [facility]. PLAN: 1. Continue vancomycin. 2. We can stop the Rocephin for now as this is redundant. 3. Recs per Cardiology. 4. She still needs a transesophageal echocardiogram. Because of lack of beds, it is possible she may go to [place] by ambulance and then come back here for further IV antibiotic treatment. 5. Again, recommendations per Cardiology services. NURA DR: Fatoumata TID: [id number]
[2021-03-02 09:52] VITALS: BP 119/77
[2021-03-02 10:21] LABS: CREATININE 1.2 mg/dL (0.6-1.0); GFR 51.7
[2021-03-02 10:28] LABS: VANC TR 18.9 mcg/mL (10.0-20.0)
[2021-03-02] MEDS: VANCOMYCIN 1 GM in IV NORMAL SALINE 250ML 250 ML IV SCH ×2 (10:52→22:10)
[2021-03-02] MEDS: VANCOMYCIN PER PHARMACY MC PRN (11:04)
[2021-03-02] MEDS ORDERED: MORPHINE SULFATE 10 MG/ML SYRINGE. IV ONE (18:30)
[2021-03-02 20:07] VITALS: BP 107/69
[2021-03-02 23:09] VITALS: BP 96/59
[2021-03-03] MEDS: oxyCODONE/APAP 10/325 1 TAB TABLET PO PRN ×4 (05:27→19:10)
[2021-03-03] MEDS: LORazepam 1 MG TABLET PO PRN ×2 (05:27→19:10)
[2021-03-03 06:05] VITALS: BP 110/71
[2021-03-03 07:48] LABS: BASO % 1 % (0-3); EOS % 2 % (0-3); HEMATOCRIT 28.2 % (36.0-47.0); HEMOGLOBIN 9.4 g/dL (12.0-15.5); LYMPH # 0.9 x10^3/uL (1.0-4.8); LYMPH % 37 % (24-48); MEAN CORPUSCULAR HEMOGLOBIN 31 pg (25-35); MEAN CORPUSCULAR HGB CONC 33 g/dL (31-37); MEAN CORPUSCULAR VOLUME 93 fL (79-100); MONO # 0.4 x10^3/uL (0.0-1.1); MONO % 15 % (0-9); NEUT # 1.1 x10^3uL (1.8-7.7); NEUT % 46 % (31-73); PLATELET COUNT 134 x10^3/uL (140-400); RED BLOOD COUNT 3.05 x10^6/uL (3.50-5.40); RED CELL DISTRIBUTION WIDTH 14.9 % (11.5-14.5); WHITE BLOOD COUNT 2.5 x10^3/uL (4.0-11.0)
--- NOTE | 2021-03-03 08:03 | PDOC ---
KARL GILLIAM EUGENIA 03/03/21 0803: CARDIO Progress Notes Date & Time Date of Service DATE: 03/03/21 TIME: 08:02 Time of Evaluation 08:02 Subjective Notes No chest pain, palpitations. Vitals Vitals Vital Signs Date Time Temp Pulse Resp B/P (MAP) Pulse Ox O2 Delivery O2 Flow Rate FiO2 03/03/21 06:05 98.5 78 20 110/71 (84) 95 Room Air Weight Weight [ ] Input and Output I.O. Intake and Output 03/03/21 07:00 Intake Total 1090 ml Balance 1090 ml Intake Oral 840 ml IV Total 250 ml Laboratory Labs Laboratory Tests Test 03/02/21 10:06 03/03/21 07:11 Creatinine 1.2 mg/dL (0.6-1.0) Estimated GFR (Cockcroft-Gault) 51.7 Vancomycin Level Trough 18.9 mcg/mL (10.0-20.0) Vancomycin Last Dose Date 03/01/21 Vancomycin Last Dose Time 2300 White Blood Count 2.5 x10^3/uL (4.0-11.0) Red Blood Count 3.05 x10^6/uL (3.50-5.40) Hemoglobin 9.4 g/dL (12.0-15.5) Hematocrit 28.2 % (36.0-47.0) Mean Corpuscular Volume 93 fL (79-100) Mean Corpuscular Hemoglobin 31 pg (25-35) Mean Corpuscular Hemoglobin Concent 33 g/dL (31-37) Red Cell Distribution Width 14.9 % (11.5-14.5) Platelet Count 134 x10^3/uL (140-400) Neutrophils (%) (Auto) 46 % (31-73) Lymphocytes (%) (Auto) 37 % (24-48) Monocytes (%) (Auto) 15 % (0-9) Eosinophils (%) (Auto) 2 % (0-3) Basophils (%) (Auto) 1 % (0-3) Neutrophils # (Auto) 1.1 x10^3uL (1.8-7.7) Lymphocytes # (Auto) 0.9 x10^3/uL (1.0-4.8) Monocytes # (Auto) 0.4 x10^3/uL (0.0-1.1) Eosinophils # (Auto) 0.0 x10^3/uL (0.0-0.7) Basophils # (Auto) 0.0 x10^3/uL (0.0-0.2) Microbiology Micro Microbiology 02/26/21 Blood Culture - Final, Complete 02/26/21 Urine Culture - Final, Complete Physical Exams HEENT: Neck Supple W Full Motion Chest: Symmetric Lungs: Clear to Auscultation Heart: RRR, other (3/6 systolic murmur ) Abdomen: Soft N/T Extremities: No Edema Neurology: alert, oriented, follow commands Assessment Assessment 1. H/o Infective endocarditis; KENNETH 04/25 with large mobile vegetation attached to the base interatrial septum. Repeat KENNETH yesterday without clear evidence of infective endocarditis as noted below. 2. Sepsis, bacteremia; BC with Staphylococcus aureus 3. Chest pain with atypical features and most probably musculoskeletal. AMI ruled out. Echo with preserved LV systolic function 4. Anemia, thrombocytopenia 5. Leukopenia 6. Chronic Hep C 7. IV drug use history; she denies any recent IVDU. Her urine tested positive for opiates and methadone 8. Tobaccoism 9. Severe TR 10. PFO; KENNETH positive for [id number] shunt. Recommendations Ongoing antibiotic therapy Will need insurance coverage for outpatient followup given KENNETH findings above. Will d/w SS Supportive care KENNETH DATE: 03/02/21 <Conclusion> The left ventricular systolic function is normal and the ejection fraction is within normal range. Estimated ejection fraction 60%. There is normal LV segmental wall motion. The right ventricle is mildly dilated. The right atrium is moderately dilated. There is no thrombus noted in the left atrial appendage. There is a moderate sized atrial level defect with bidirectional shunting and agitated saline study was Doppler and Color Flow revealed severe tricuspid regurgitation. There is a prominent eustachian valve and Chiari network noted which was evident on echocardiogram from 2019 and overall this appears unchanged. Overall, no clear evidence of on current study. EVARISTO FONSECA MD 03/03/21 1641: CARDIO Progress Notes Assessment Assessment Patient seen and examined I agree with our nurse practitioners assessment and plan. H/o Infective endocarditis; KENNETH 04/25 with large mobile vegetation attached to the base interatrial septum. Repeat KENNETH yesterday without clear evidence of infective endocarditis as noted below. Continue medical treatment. Outpatient follow-up. Sepsis, bacteremia; BC with Staphylococcus aureus Chest pain with atypical features and most probably musculoskeletal. AMI ruled out. Echo with preserved LV systolic function Anemia, thrombocytopenia Chronic Hep C IV drug use history; she denies any recent IVDU. Her urine tested positive for opiates and methadone Severe TR PFO; KENNETH positive for [id number] shunt. KARL GILILAM APRN Mar 03, 2021 08:03 EVARISTO FONSECA MD Mar 03, 2021 16:41
[2021-03-03 08:04] LABS: ALBUMIN 2.1 g/dL (3.4-5.0); ALBUMIN/GLOBULIN RATIO 0.4 (1.0-1.7); CALCIUM 8.2 mg/dL (8.5-10.1); CREATININE 1.2 mg/dL (0.6-1.0); GFR 51.7; POTASSIUM 4.2 mmol/L (3.5-5.1); TOTAL BILIRUBIN 0.4 mg/dL (0.2-1.0); TOTAL PROTEIN 6.9 g/dL (6.4-8.2)
[2021-03-03] MEDS: LACTOBACILLUS RHAMNOSUS GG 1 CAPSULE. PO SCH ×2 (09:00→19:10)
[2021-03-03] MEDS: BENZONATATE 100 MG CAPSULE. PO SCH ×3 (09:00→19:10)
[2021-03-03 10:40] VITALS: BP 112/74
[2021-03-03] MEDS: VANCOMYCIN 1 GM in IV NORMAL SALINE 250ML 250 ML IV SCH ×2 (11:00→22:43)
[2021-03-03 15:15] VITALS: BP 102/66
[2021-03-03 19:00] VITALS: BP 109/72
[2021-03-03] MEDS: guaiFENesin 300 MG/15 ML LIQUID PO PRN (19:09)
[2021-03-03 23:00] VITALS: BP 106/75
--- NOTE | 2021-03-04 00:43 | PN ---
DATE: 03/03/2021 SUBJECTIVE: The patient is resting, slightly propped up in bed, in no apparent respiratory distress. She continued to complain of pain mostly in her chest, although acute myocardial infarction was ruled out. Her blood culture has grown gram-positive cocci identified as Staphylococcus aureus that is actually methicillin-sensitive. She is currently on vancomycin. PHYSICAL EXAMINATION: GENERAL: When I examined her, she looked well and was clearly in no apparent respiratory distress, pale, but no jaundice, cyanosis or thyromegaly. No jugular venous distention. No limb edema. VITAL SIGNS: His heart rate was 75, blood pressure is 112/74, temperature was 97, respiratory rate was 16 and oxygen saturation was 95% on room air. HEAD, EYES, EARS, NOSE, AND THROAT: Normocephalic, atraumatic. NECK: Supple. HEART: Normal first and second heart sounds. No gallop, rub or murmur. CHEST: Clear to auscultation, no crepitation or rhonchi. ABDOMEN: Scaphoid, soft, nontender. NEUROLOGIC: She was grossly intact. Her intake was 1070, no output was recorded. LABORATORY DATA: Her lab work showed a white cell count of 3500, hemoglobin 9.4, hematocrit 28.2, MCV 93, and platelet count of 134,000. Her prothrombin time was 11.6, INR of 1.1, APTT was 45. D-dimer was 2.79. Her chemistry this morning showed a serum sodium 137, potassium 4.2, chloride 106, bicarbonate 24, anion gap of 7, BUN 12, creatinine 1.2. Estimated GFR was 51 mL per minute. Her glucose was 10, calcium was 8.2. Total bilirubin, AST, ALT, alkaline phosphatase were normal. Total protein 0.9 and albumin was 2.1. Urinalysis showed that trace of leukocyte esterase, 3-5 rbc's, 5-10 wbc's, very few bacteria and her urine test was negative. Her toxic screen was positive for opiates and methadone. Her coronavirus by PCR was negative. Her influenza A and B were negative. Her chest x-ray showed previous surgery at the left hilum. Left hilum has fullness correlation with a recent prior study. CT should be of benefit. Mild right lung base infiltrate. ASSESSMENT: 1. In summary, this is a 35-year-old with a history of infective endocarditis. She had had a KENNETH on 04/25 with a large mobile vegetation attached to the base. Interatrial septum repeat KENNETH yesterday without clear evidence of infective endocarditis. 2. Sepsis bacteremia. Blood culture showed Staphylococcus aureus. 3. Chest pain with atypical features and most probably musculoskeletal. Acute myocardial infarction was ruled out. 4. She has anemia and thrombocytopenia. 5. Leukopenia. 6. She has chronic hepatitis C. 7. IV drug abuse history, although she denied any intravenous drug use. Her urine tested therefore for opiates and methadone. 8. Tobaccoism. 9. Severe tricuspid regurgitation. 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 KENNETH was positive for right to left shunt. The plan is to continue with IV vancomycin; however, the blood culture is actually growing methicillin-sensitive Staphylococcus aureus. The bacteria is very sensitive to almost all antibiotics, even oxacillin. PLAN: Continue with pain management. Continue with albuterol and Atrovent. BOBY DR: Erica TID: [id number]
[2021-03-04 05:00] VITALS: BP 125/78
[2021-03-04] MEDS: oxyCODONE/APAP 10/325 1 TAB TABLET PO PRN (05:48)
[2021-03-04] MEDS: LORazepam 1 MG TABLET PO PRN ×2 (05:48→19:28)
[2021-03-04] MEDS: guaiFENesin 300 MG/15 ML LIQUID PO PRN (05:48)
[2021-03-04] MEDS: BENZONATATE 100 MG CAPSULE. PO SCH ×3 (09:50→19:28)
[2021-03-04] MEDS: LACTOBACILLUS RHAMNOSUS GG 1 CAPSULE. PO SCH ×2 (09:50→19:28)
[2021-03-04 10:44] VITALS: BP 108/69
[2021-03-04] MEDS: VANCOMYCIN 1 GM in IV NORMAL SALINE 250ML 250 ML IV SCH (11:00)
[2021-03-04 11:07] LABS: VANC TR 20.1 mcg/mL (10.0-20.0)
[2021-03-04 15:01] VITALS: BP 118/78
[2021-03-04] MEDS: HYDROmorphone 2 MG TABLET PO PRN ×3 (15:36→22:19)
--- NOTE | 2021-03-04 17:03 | PDOC ---
DATE OF SERVICE: DOS: DATE: 03/04/21 TIME: 17:01 SUBJECTIVE: Patient seen and examined OBJECTIVE: Problems: Problems Medical Problems: (1) Chest pain Status: Acute Vital Signs/I&O: Vital Signs Date Time Temp Pulse Resp B/P (MAP) Pulse Ox O2 Delivery O2 Flow Rate FiO2 03/04/21 15:36 16 Room Air 03/04/21 15:01 98.7 62 118/78 (91) 96 03/03/21 19:00 96.0 I & O 03/03/21 03/03/21 03/04/21 15:00 23:00 07:00 Intake Total 250 ml Balance 250 ml Labs: Laboratory Tests Test 03/04/21 10:42 Vancomycin Level Trough 20.1 mcg/mL (10.0-20.0) H Vancomycin Last Dose Date 03/03/21 Vancomycin Last Dose Time 2300 Physical Exam: Chest: mildly decreased breath sounds CV: RRR with II/ murmur Abdomen: Soft ASSESSMENT: H/o Infective endocarditis; KENNETH 04/25 with large mobile vegetation attached to the base interatrial septum. However repeat KENNETH without clear evidence of infective endocarditis as noted below. Continue medical treatment. Outpatient follow-up. Sepsis, bacteremia; BC with Staphylococcus aureus Chest pain with atypical features and most probably musculoskeletal. AMI ruled out. Echo with preserved LV systolic function Anemia, thrombocytopenia Chronic Hep C IV drug use history; she denies any recent IVDU. Her urine tested positive for opiates and methadone Severe TR PFO; KENNETH positive for [id number] shunt. Justification of Admission: Justification of Admission: Justification of Admission Dx: Yes EVARISTO FONSECA MD Mar 04, 2021 17:03
[2021-03-04 20:47] VITALS: BP 129/86
--- NOTE | 2021-03-04 22:02 | PN ---
DATE: 03/04/2021 SUBJECTIVE: The patient is resting flat in bed, in no apparent distress. She is awake, alert, continued to complain of pain; however, she is afebrile, hemodynamically stable. Her white cell count was 2.5. Her blood culture has grown methicillin-sensitive Staphylococcus aureus sensitive to all antibiotics. She had had a KENNETH, which did not show any new vegetation. She does have severe tricuspid regurgitation. OBJECTIVE: GENERAL: On examining her today, she looked well, pale, but no jaundice, cyanosis, no lymphadenopathy, no thyromegaly, no jugular venous distention. No lower limb edema. VITAL SIGNS: Her heart rate was 65, blood pressure was 108/69, temperature was 98.1, respiratory rate was 16 and oxygen saturation was 96%. HEAD, EYES, EARS, NOSE, AND THROAT: Normocephalic, atraumatic. NECK: Supple. HEART: Showed normal first and second heart sounds. No gallop, rub or murmur. CHEST: Clear to auscultation, no crepitation or rhonchi. ABDOMEN: Distended, soft, nontender. NEUROLOGIC: She was grossly intact. Her intake was 1070, no output was recorded. LABORATORY DATA: As of yesterday showed a white cell count 2500, hemoglobin 9.4, hematocrit 28, MCV 93, and platelet count of 134,000. Her chemistry showed a serum sodium 137, potassium 4.2, chloride 106, bicarbonate 24, anion gap of 7, BUN 12, creatinine 1.2. Estimated GFR was 51 mL per minute. Her glucose was 95, calcium was 8.2. Total bilirubin, AST, ALT, alkaline phosphatase were normal. Her total protein 6.9, albumin was 2.1. ASSESSMENT: 1. This is a 35-year-old with history of infective endocarditis. She had had a KENNETH on 05/03/2020 with a large mobile vegetation attached to the base of interatrial septum. Repeat TTE yesterday without clear evidence of infective endocarditis. 2. Sepsis bacteremia. Blood culture has grown methicillin-sensitive Staphylococcus aureus. 3. Chest pain with atypical features and most probably musculoskeletal. Acute myocardial infarction was ruled out. 4. She has almost like pancytopenia with anemia, thrombocytopenia and leukopenia. 5. Has chronic hepatitis C. 6. IV drug abuse. Although she denied any intravenous drug use, her urine testing was positive for opiates and methadone. 7. Tobaccoism. 8. Severe tricuspid regurgitation. 9. Resistant fossa ovalis. KENNETH was positive for right to left shunt. PLAN: To discontinue IV vancomycin and switch her to IV cefazolin 1 gram IV q. 8 hourly. We will repeat her blood cultures and assuming it is negative, we will switch her to dalbavancin to be given IV once a week for [address]: Erica TID: [id number]
[2021-03-05 00:07] VITALS: BP 103/63
[2021-03-05] MEDS: HYDROmorphone 2 MG TABLET PO PRN ×5 (02:40→15:26)
[2021-03-05 06:18] VITALS: BP 120/79
[2021-03-05 06:44] LABS: BASO % 1 % (0-3); EOS # 0.1 x10^3/uL (0.0-0.7); EOS % 2 % (0-3); HEMOGLOBIN 9.4 g/dL (12.0-15.5); LYMPH # 1.1 x10^3/uL (1.0-4.8); LYMPH % 35 % (24-48); MEAN CORPUSCULAR HEMOGLOBIN 31 pg (25-35); MEAN CORPUSCULAR HGB CONC 34 g/dL (31-37); MEAN CORPUSCULAR VOLUME 92 fL (79-100); MONO # 0.4 x10^3/uL (0.0-1.1); MONO % 13 % (0-9); NEUT # 1.5 x10^3uL (1.8-7.7); NEUT % 49 % (31-73); PLATELET COUNT 121 x10^3/uL (140-400); RED BLOOD COUNT 3.05 x10^6/uL (3.50-5.40); RED CELL DISTRIBUTION WIDTH 14.8 % (11.5-14.5); WHITE BLOOD COUNT 3.1 x10^3/uL (4.0-11.0)
[2021-03-05 06:49] LABS: ALBUMIN 2.2 g/dL (3.4-5.0); ALBUMIN/GLOBULIN RATIO 0.5 (1.0-1.7); CALCIUM 8.2 mg/dL (8.5-10.1); CREATININE 1.1 mg/dL (0.6-1.0); GFR 57.2; POTASSIUM 3.9 mmol/L (3.5-5.1); TOTAL BILIRUBIN 0.3 mg/dL (0.2-1.0)
[2021-03-05] MEDS: LACTOBACILLUS RHAMNOSUS GG 1 CAPSULE. PO SCH (09:00)
[2021-03-05] MEDS: BENZONATATE 100 MG CAPSULE. PO SCH ×2 (09:00→14:28)
[2021-03-05 12:20] VITALS: BP 128/79
[2021-03-05] MEDS ORDERED: DAPT500V7 IV (14:53)
--- NOTE | 2021-03-05 15:49 | PDOC ---
DATE OF SERVICE: DOS: DATE: 03/05/21 TIME: 15:48 SUBJECTIVE: Patient seen and examined OBJECTIVE: Problems: Problems Medical Problems: (1) Chest pain Status: Acute Vital Signs/I&O: Vital Signs Date Time Temp Pulse Resp B/P (MAP) Pulse Ox O2 Delivery O2 Flow Rate FiO2 03/05/21 15:26 16 Room Air 03/05/21 12:20 98.3 68 128/79 (95) 94 03/03/21 19:00 96.0 I & O 03/04/21 03/04/21 03/05/21 15:00 23:00 07:00 Intake Total 500 ml 200 ml Balance 500 ml 200 ml Labs: Laboratory Tests Test 03/05/21 06:25 White Blood Count 3.1 x10^3/uL (4.0-11.0) L Red Blood Count 3.05 x10^6/uL (3.50-5.40) L Hemoglobin 9.4 g/dL (12.0-15.5) L Hematocrit 28.0 % (36.0-47.0) L Mean Corpuscular Volume 92 fL (79-100) Mean Corpuscular Hemoglobin 31 pg (25-35) Mean Corpuscular Hemoglobin Concent 34 g/dL (31-37) Red Cell Distribution Width 14.8 % (11.5-14.5) H Platelet Count 121 x10^3/uL (140-400) L Neutrophils (%) (Auto) 49 % (31-73) Lymphocytes (%) (Auto) 35 % (24-48) Monocytes (%) (Auto) 13 % (0-9) H Eosinophils (%) (Auto) 2 % (0-3) Basophils (%) (Auto) 1 % (0-3) Neutrophils # (Auto) 1.5 x10^3uL (1.8-7.7) L Lymphocytes # (Auto) 1.1 x10^3/uL (1.0-4.8) Monocytes # (Auto) 0.4 x10^3/uL (0.0-1.1) Eosinophils # (Auto) 0.1 x10^3/uL (0.0-0.7) Basophils # (Auto) 0.0 x10^3/uL (0.0-0.2) Sodium Level 131 mmol/L (136-145) L Potassium Level 3.9 mmol/L (3.5-5.1) Chloride Level 104 mmol/L (98-107) Carbon Dioxide Level 23 mmol/L (21-32) Anion Gap 4 (6-14) L Blood Urea Nitrogen 11 mg/dL (7-20) Creatinine 1.1 mg/dL (0.6-1.0) H Estimated GFR (Cockcroft-Gault) 57.2 BUN/Creatinine Ratio 10 (6-20) Glucose Level 86 mg/dL (70-99) Calcium Level 8.2 mg/dL (8.5-10.1) L Total Bilirubin 0.3 mg/dL (0.2-1.0) Aspartate Amino Transferase (AST) 38 U/L (15-37) H Alanine Aminotransferase (ALT) 37 U/L (14-59) Alkaline Phosphatase 97 U/L (46-116) Total Protein 7.0 g/dL (6.4-8.2) Albumin 2.2 g/dL (3.4-5.0) L Albumin/Globulin Ratio 0.5 (1.0-1.7) L Physical Exam: Chest. Mildly decreased breath sounds. CV. Regular rate and rhythm. Abdomen. Soft. ASSESSMENT: H/o Infective endocarditis; KENNETH 04/25 with large mobile vegetation attached to the base interatrial septum. However repeat KENNETH without clear evidence of infective endocarditis as noted below. Continue medical treatment. Outpatient follow-up. Sepsis, bacteremia; BC with Staphylococcus aureus. On antibiotics. Chest pain with atypical features and most probably musculoskeletal. AMI ruled out. Echo with preserved LV systolic function Anemia, thrombocytopenia Chronic Hep C IV drug use history; she denies any recent IVDU. Her urine tested positive for opiates and methadone Severe TR PFO; KENNETH positive for [id number] shunt. Outpatient follow-up as above. Justification of Admission: Justification of Admission: Justification of Admission Dx: Yes EVARISTO FONSECA MD Mar 05, 2021 15:49
--- NOTE | 2021-03-06 04:49 | DS ---
DATE OF DISCHARGE: 03/05/2021 HOSPITAL COURSE: The patient is a 35-year-old female patient who was admitted originally through the Emergency Room with generalized weakness, low-grade fever, myalgias, and lack of appetite. Upon further interrogation, she also complained of chest pain that she described as sharp in nature and not related to exertion, 8/10 in severity. She denied any orthopnea or paroxysmal nocturnal dyspnea, palpitations, or syncope. She had a COVID test in [place] 7 days ago that was negative. We did consult the Cardiology team for possible endocarditis, especially in lieu of the murmur noted on physical exam, although the patient denied any intravenous drug use after she was treated for endocarditis ____ years ago. She was started on IV vancomycin and had had an echocardiogram done, which apparently was negative for any vegetation, which showed that her left ventricular systolic function is normal and the ejection fraction is within normal range at 55%. There is normal left ventricular segmental wall motion. There is a large mobile vegetation attached to the base of interatrial septum. This likely extends to the septal leaflet of the tricuspid valve, measuring 2 x 3 cm. There is also likely perforation of the anterior tricuspid valve leaflet with resultant severe regurgitation. This was the KENNETH done on ____. Basically, her blood cultures have grown methicillin-sensitive Staphylococcus aureus and I spoke with Dr. Bliss and she recommended treatment with cefazolin 1 gram IV 3 times a day and/or daptomycin, and I was actually planning to make arrangements for that. Apparently, Dalbavancin was also on the table, but given the expense that was less likely, I planned to keep the patient in the hospital over the weekend, but she insisted that she wants to go home as she has to pay her rent and has her dog at home and therefore I decided to just switch her to daptomycin 6 mg/kg for at least 4 weeks and has to come to the hospital as an outpatient to get the treatment on a daily basis for at least 4 weeks and to check her CBC, her CMP, as well as CK every Monday. PHYSICAL EXAMINATION: GENERAL: When I saw her today, she was resting slightly propped up in bed, in no apparent respiratory distress. She was pale, but not jaundiced or cyanosed. No lymphadenopathy, no thyromegaly, no jugular venous distention. No lower limb edema. VITAL SIGNS: Her heart rate was 68, blood pressure was 128/79, temperature was 98.3, respiratory rate was 18 and oxygen saturation was 94% on room air. Rest of clinical exam is stable. LABORATORY DATA: Her lab work this morning showed a white cell count of 3100, hemoglobin 9.4, hematocrit 28, MCV 92, and platelet count of 121,000. Her chemistry this morning showed serum sodium 131, potassium 3.9, chloride 104, bicarbonate 23, anion gap of 4, BUN 11, creatinine 1.1. Estimated GFR was 57 mL per minute. Her glucose was 86, calcium was 8.2. Total bilirubin, AST, ALT, alkaline phosphatase were normal. Total protein 7, albumin was 2.2. She was discharged home with a plan for her to come to the hospital on a daily basis to receive her daptomycin. FINAL DISCHARGE DIAGNOSES: 1. Methicillin-sensitive Staphylococcus bacteremia. 2. Chest pain with ____ typical features, most probably musculoskeletal, acute myocardial infarction was ruled out. 3. History of infective endocarditis. She has had a KENNETH done on ____ with a large mobile vegetation attached to the base of the interatrial septum. 4. Pancytopenia with anemia, thrombocytopenia, and leukopenia. 5. Has chronic hepatitis C. 6. IV drug abuse, although she denied any intravenous drug use. Her urine screen testing was positive for opiates and methadone. 7. Tobaccoism. 8. Severe tricuspid regurgitation. 9. Persistent fossa ovalis with a KENNETH, she was positive for right to left shunt. ALICIA/JEANNIE DR: Erica TID: [id number]
== END 2021-03-05 16:07 | disposition home or self-care (01) | DRG 871 ==
LOC: ER 19:53 → 1 SOUTH 02-26 02:18
PROVIDERS: ADMIT Hospitalist; ATTEND Hospitalist
DX: A41.01 Sepsis due to Methicillin susceptible Staphylococcus aureus (principal); I33.0 Acute and subacute infective endocarditis; E87.1 Hypo-osmolality and hyponatremia; I50.30 Unspecified diastolic (congestive) heart failure; D61.818 Other pancytopenia; Q21.1 Atrial septal defect; Z20.822 Contact with and (suspected) exposure to COVID-19; D63.8 Anemia in other chronic diseases classified elsewhere; N18.30 Chronic kidney disease, stage 3 unspecified; F19.10 Other psychoactive substance abuse, uncomplicated; I07.1 Rheumatic tricuspid insufficiency; F17.200 Nicotine dependence, unspecified, uncomplicated; B18.2 Chronic viral hepatitis C; Z86.79 Personal history of other diseases of the circulatory system; Z80.3 Family history of malignant neoplasm of breast
CPT/HCPCS: 36415; 71045; 80048; 80053; 80202; 80307; 81001; 81025; 82553; 82565; 83605; 83735; 83880; 84443; 84484; 85025; 85379; 85610; 85730; 87040; 87077; 87086; 87186; 87205; 87804; 93005; 96361; 96365; 96368; 96372; 96375; J0690; J0696; J1650; J1940; J2060; J2270; J2405; J3370; J7050; U0003; 99285-25; J7030

== ENCOUNTER 2021-03-05 20:13 | Inpatient (IN) | payer OTHER ==
[~2021-03-05] VITALS: Ht 165.1 cm; Wt 60.5 kg
[~2021-03-05 20:13] MED LIST changes: +DAPT500V7 IV
--- NOTE | 2021-03-05 21:10 | PHYS DOC ---
Past History Past Medical History: CHF Additional Past Medical Histor: endocarditis (ANGEL TOTH) Past Surgical History: Other Additional Past Surgical Histo: LEFT LOBECTOMY (ANGEL TOTH) Smoking: Cigarettes Alcohol Use: None Drug Use: Marijuana, Methadone, Opiates Social History Narrative: IVDU (ANGEL TOTH) General Adult EDM: Chief Complaint: FEVER HPI: HPI: Patient is a 35] year old female who was discharged from the hospital earlier today who now presents with fever, chest pain. Patient was being treated for MSSA bacteremia, but insisted that she go home so that she could find someone to care for her dog and pay her rent. She now seeks to be readmitted into the hospital for antibiotic treatment. Patient states, "I'm not okay right now." (ANGEL TOTH) Review of Systems: Review of Systems: ROS negative or noncontributory except as mentioned in HPI. (ANGEL TOTH) Current Medications: Current Meds: Current Medications Medications (Trade) Dose Ordered Sig/Chris Start Time Stop Time Status Last Admin Dose Admin Acetaminophen (Tylenol) 1,000 mg 1X ONCE 03/05/21 21:00 03/05/21 21:01 UNV (ANGEL TOTH) Allergies: Allergies: Allergies Coded Allergies Type Severity Reaction Last Updated Verified paroxetine Allergy Intermediate 10/09/18 Yes I S O L A T I O N *CONTACT* Allergy Unknown 10/12/18 Yes (ANGEL TOTH) Physical Exam: PE: Constitutional: Well developed, well nourished, no acute distress, non-toxic appearance. Cardiovascular: Elevated heart rate with holosystolic murmur. Lungs & Thorax: Bilateral breath sounds clear to auscultation. Extremities: No tenderness, no cyanosis, no clubbing, ROM intact, no edema. Neurologic: Alert and oriented x4, no focal deficits noted. (ANGEL TOTH) Current Patient Data: Vital Signs: Vital Signs Date Time Temp Pulse Resp B/P (MAP) Pulse Ox O2 Delivery O2 Flow Rate FiO2 03/05/21 20:33 102.0 90 18 135/85 (102) 96 (ANGEL TOTH) Heart Score: C/O Chest Pain: N/A (ANGEL TOTH) Course & Med Decision Making: Course & Med Decision Making Pertinent Labs and Imaging studies reviewed. (See chart for details) Patient is a 35-year-old female with known history of IV drug use, CHF, bacterial endocarditis, severe tricuspid regurgitation who was reluctantly discharged from the hospital earlier today. Her discharge plan included IV antibiotic infusion on an outpatient basis through a port in her right side chest. She presents to the emergency department with fever, chest pain and wishes to be readmitted. She reports to me it was her understanding that when she came back for her IV antibiotic infusion tomorrow, that she would go back into the hospital. Call Dr. Colby for clarification on patient discharge and treatment plan. He states that the patient insisted on leaving, so he set up outpatient IV antibiotic therapy for her instead of keeping her in the hospital. He insists that she was very much aware that she would not be readmitted when she came back for her IV infusion. A bed is available for her in the hospital to be readmitted. Dr. Colby accepts for resuming inpatient treatment. (ANGEL TOTH) Course & Med Decision Making Did not see or evaluate patient. Did not discuss patient with BI REPORT DEVELOPER. Agree with BI REPORT DEVELOPER's work-up and disposition per note. (BARBARA HOOKS MD) Dragon Disclaimer: Dragon Disclaimer: This electronic medical record was generated, in whole or in part, using a voice recognition dictation system. (ANGEL TOTH) Departure Departure: Impression: Primary Impression: MSSA bacteremia Additional Impression: Severe tricuspid regurgitation Disposition: ADMITTED INPATIENT Admitting Physician: Lyla Colby (ANGEL TOTH) Condition: GUARDED Referrals: PCP,NO (PCP) ANGEL TOTH Mar 05, 2021 21:10 BARBARA HOOKS MD Mar 05, 2021 22:05
[2021-03-05] MEDS ORDERED: ACETAMINOPHEN 500 MG TABLET PO ONE (21:15)
[2021-03-05 21:39] LABS: BARBITURATES NEG (NEG); BENZODIAZEPINES NEG (NEG); CANNABINOIDS NEG (NEG); COCAINE NEG (NEG); METHADONE NEG (NEG); OPIATES POS (NEG); PHENCYCLIDINE NEG (NEG)
[2021-03-05 21:42] LABS: AMPHETAMINE/METHAMPHETAMINE NEG (NEG)
[2021-03-05] MEDS ORDERED: diphenhydrAMINE 50 MG/ML VIAL IVP ONE (22:00)
--- NOTE | 2021-03-05 22:35 | NUR ---
The patient, ALPESH AUGUST, 35 y/o, F admitted by WALT RAMIREZ MD, was given written information regarding hospital policies, unit procedures and contact persons. Valuables were checked and left with patient
[2021-03-05 23:22] VITALS: BP 137/58
[2021-03-06] MEDS: ACETAMINOPHEN 325 MG TABLET PO PRN ×3 (04:57→20:23)
[2021-03-06 05:25] VITALS: BP 133/94
--- NOTE | 2021-03-06 11:08 | NUR ---
PT HAS BEEN RESTING IN BED THIS MORNING. DR. RAMIREZ STATES PT CAN HAVE TYLENOL FOR PAIN.
[2021-03-06 11:45] VITALS: BP 135/88
[2021-03-06 16:12] VITALS: BP 128/86
--- NOTE | 2021-03-06 16:20 | NUR ---
PT REQUESTED PAIN MEDS AND WAS INFORMED SHE COULD HAVE TYLENOL. PT REQUESTED TYLENOL. PT RESTED MOST OF THE DAY AND RECEIVED HER IV ABX TX.
[2021-03-06 19:58] VITALS: BP 138/81
[2021-03-06] MEDS: LACTOBACILLUS RHAMNOSUS GG 1 CAPSULE. PO SCH (20:23)
[2021-03-06] MEDS ORDERED: diphenhydrAMINE HCL 25 MG CAPSULE PO ONE (20:30)
--- NOTE | 2021-03-07 02:46 | NUR ---
Nursing note: Patient requested pain medication and "something to help me sleep". Tylenol given, Dr. Colby ordered benadryl for sleep aid.
[2021-03-07 05:48] VITALS: BP 123/81
[2021-03-07] MEDS: ACETAMINOPHEN 325 MG TABLET PO PRN ×2 (05:56→21:16)
[2021-03-07] MEDS: LACTOBACILLUS RHAMNOSUS GG 1 CAPSULE. PO SCH ×2 (07:49→20:54)
[2021-03-07 09:31] LABS: BASO % 1 % (0-3); EOS % 0 % (0-3); HEMOGLOBIN 10.4 g/dL (12.0-15.5); LYMPH % 44 % (24-48); MEAN CORPUSCULAR HEMOGLOBIN 31 pg (25-35); MEAN CORPUSCULAR HGB CONC 34 g/dL (31-37); MEAN CORPUSCULAR VOLUME 93 fL (79-100); MONO # 0.3 x10^3/uL (0.0-1.1); MONO % 11 % (0-9); NEUT % 44 % (31-73); PLATELET COUNT 97 x10^3/uL (140-400); RED BLOOD COUNT 3.35 x10^6/uL (3.50-5.40); RED CELL DISTRIBUTION WIDTH 14.9 % (11.5-14.5); WHITE BLOOD COUNT 2.3 x10^3/uL (4.0-11.0)
[2021-03-07 09:59] LABS: ALBUMIN 2.5 g/dL (3.4-5.0); ALBUMIN/GLOBULIN RATIO 0.4 (1.0-1.7); CALCIUM 8.6 mg/dL (8.5-10.1); CREATININE 1.2 mg/dL (0.6-1.0); GFR 51.7; POTASSIUM 4.3 mmol/L (3.5-5.1); TOTAL BILIRUBIN 0.4 mg/dL (0.2-1.0); TOTAL PROTEIN 8.2 g/dL (6.4-8.2)
[2021-03-07 12:36] LABS: % LYMPHS 42 % (24-48); % MONOS 4 % (0-10); % SEGS 54 % (35-66); PLT ESTIMATE DECREASED (ADEQUATE)
--- NOTE | 2021-03-07 15:00 | NUR ---
PT ASKED ABOUT WHY STAFF TOOK HER BLOOD EARLIER, AND ASKED IF SHE IS BETTER. PT WAS INFORMED ABOUT HER BLOOD CULTURES FROM 03/05. PT ASKED WHEN SHE IS GOING TO BE ABLE TO LEAVE. PT STATES "IM GOING CRAZY". PT RESTED IN BED ALL DAY.
[2021-03-07 16:13] VITALS: BP 125/77
[2021-03-07 19:55] VITALS: BP 151/109
--- NOTE | 2021-03-07 20:51 | HP ---
DATE OF SERVICE: 03/06/2021 ADMIT DATE: 03/05/2021 HISTORY OF PRESENT ILLNESS: The patient is a 35-year-old female patient whom we have discharged yesterday afternoon as she was insisting that she wants to go home to pay her rent and also take care of her dog and we have arranged for her to be treated with daptomycin 6 mg/kg for treatment of her methicillin-sensitive Staphylococcus aureus bacteremia as recommended by the Infectious Disease specialist as she came with this rent and dog the last moment, although she knows that we have been talking about this planning for discharge here and requirement for treatment for a few days now. In any case, within few hours, the patient came back to the Emergency Room claiming that we told her that she will be readmitted although that is not the case, so we actually arranged for her to be injected with daptomycin at 6 mg/kg IV for 4 more weeks as recommended by Dr. Bliss. In fact, Dr. Bliss recommended treatment with cefazolin as the best treatment for the methicillin-susceptible Staphylococcus aureus. We have already spoken to her about our fear of her using the midline that she has for injecting drugs and ____. The moment she arrived to the Emergency Room, she spiked her temperature up to 102, although she was afebrile and hemodynamically stable from ____ before she leaves the hospital, making it likely that she has probably injected something using her line. The patient was readmitted and was restarted on her cefazolin 1 gram IV every 8 hours. Her toxic screen was positive again for opiates. Unfortunately, she was already on hydromorphone prior to her discharge. PHYSICAL EXAMINATION: GENERAL: On arrival to the Emergency Room, she was pale, not jaundiced, cyanosed. No lymphadenopathy, no thyromegaly, no jugular venous distention. No limb edema. VITAL SIGNS: Her heart rate was 98, blood pressure is 135/85, temperature was 102, respiratory rate was 18 and oxygen saturation was 96%. HEAD, EYES, EARS, NOSE, AND THROAT: Normocephalic, atraumatic. NECK: Supple. HEART: Showed normal first and second heart sounds. No gallop, rub or murmur. CHEST: Clear to auscultation, no crepitation or rhonchi. ABDOMEN: Distended, soft, nontender. NEUROLOGIC: She was alert, oriented x3. No focal deficit. LABORATORY DATA: The patient has had toxic screen showed positive for opiates; however, no other lab work was done. ASSESSMENT: 1. Methicillin-sensitive Staphylococcus aureus bacteremia. 2. Chest pain with atypical features, most probably musculoskeletal and acute myocardial infarction was ruled out. 3. History of infective endocarditis. She has had a KENNETH done in 04/2019 with a large mobile vegetation attached to the base of the interatrial septum. 4. She has pancytopenia. 5. Has chronic hepatitis C. 6. History of IV drug abuse, although she denied any intravenous drug use; however, her urine screen initially was positive for opiates and methadone. This time was positive for opiate. 7. She has tobaccoism. 8. Severe tricuspid regurgitation. 9. 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 PAST SURGICAL HISTORY: Significant for left lobectomy. FAMILY HISTORY: Noncontributory. SOCIAL HISTORY: The patient continued to deny smoking, alcohol or recent intravenous drug abuse. PLAN: To continue with IV cefazolin for now. I will repeat her labs again tomorrow and discuss with the social science instructor as well as the administration the need for probably dalbavancin once a week instead of allowing her to use her IV line for drug abuse as she did already yesterday. JUSTIN/BAIRON/TED DR: JUSTIN/libra TID: [id number]
[2021-03-07] MEDS ORDERED: diphenhydrAMINE HCL 25 MG CAPSULE PO ONE (21:30)
[2021-03-07 23:45] VITALS: BP 130/84
--- NOTE | 2021-03-08 02:19 | PN ---
DATE: 03/07/2021 SUBJECTIVE: The patient is resting almost flat in bed, in no apparent distress. She denied any complaint. The nursing staff did not voice any concerns except the fact that her blood culture has grown again gram-positive cocci in clusters in 2/4 bottles after being negative on 03/04. She left obviously insisting that she wants to pay her rent and take care of her dog and within few hours she came back with fever of 102 and now her blood cultures are growing gram-negative rods in cluster in 2/4 bottles. The identification and sensitivity is still pending at the time of this dictation. OBJECTIVE: GENERAL: On examining her today, she looked pale, cachectic, but no jaundice or cyanosis, no lymphadenopathy, no thyromegaly, no jugular venous distention. No limb edema. VITAL SIGNS: Her heart rate was 72, blood pressure was 123/81, temperature was 98.6, respiratory rate 20, and oxygen saturation was 97%. HEAD, EYES, EARS, NOSE, AND THROAT: Normocephalic, atraumatic. NECK: Supple. HEART: Showed normal first and second heart sounds. No gallop, rub or murmur. CHEST: Clear to auscultation. No crepitation or rhonchi. ABDOMEN: Distended, soft, nontender. NEUROLOGIC: She is grossly intact. Her intake and output were incompletely recorded. LABORATORY DATA: This morning, continued. She does show pancytopenia with a white cell count of 2300, hemoglobin 10, hematocrit 31, MCV 93 and platelet count 97,000. Her chemistry showed serum sodium 136, potassium 4.3, chloride 104, bicarbonate 22, anion gap of 10, BUN 11, creatinine 1.2. Estimated GFR was 51 mL per minute. Her glucose 116. Lactic acid was 1.2, calcium was 8.6. Total bilirubin, AST, ALT, alkaline phosphatase slightly elevated. Total protein 8.2, albumin was 2.5. Her toxic screen again was positive for opiates and this time was negative for methadone. ASSESSMENT AND PLAN: In summary, this is a 35-year-old female patient who was originally admitted on 02/26/2021 with a complaint of chest wall pain, generalized weakness, low-grade fever, and back pain. She has had fevers up to 100.3 degrees Fahrenheit over the last 3 days. Before admission, she tested negative for COVID in [place] 7 days ago. The x-ray did not show any overt failure or infiltrate. Does have a history of bacterial endocarditis, treated a year ago at [facility] with 6 weeks' treatment with intravenous antibiotic. She adamantly denied any recent intravenous drug use at that time. Her drug screen tested positive for opiates and methadone. Eventually, her blood culture has grown methicillin-sensitive Staphylococcus aureus and we were in the process of debating the best way of treating her methicillin-susceptible Staphylococcus aureus bacteremia and according to Infectious Disease, they recommended dalvastatin; however, apparently, the medication is very expensive and Dr. Bliss recommended cefazolin and/or daptomycin. On 03/05/2021, she insisted that she wants to go home to pay her rent and take care of her dog and we discharged her with a plan for her to come every day for IV daptomycin, but apparently she used her line to inject drugs and came back within a few hours with a fever up to 102 and her blood cultures now are positive after being negative on 03/04. My recommendation is that this patient should be discharged without any line and I believe ____ long acting antibiotic is the best option for her and I would discuss this with the social and human services assistant and the red hat open stack administrator tomorrow and ____ can be discharged and comes here once a week for 4 weeks to receive this type of treatment as the safest as she demonstrated her irresponsibility and lack of insight. JUSTIN/WINTER/JEANNIE DR: Erica TID: [id number]
[2021-03-08] MEDS: LACTOBACILLUS RHAMNOSUS GG 1 CAPSULE. PO SCH ×2 (09:00→22:20)
[2021-03-08 11:44] VITALS: BP 126/64
[2021-03-08 16:15] VITALS: BP 149/94
[2021-03-08] MEDS ORDERED: diphenhydrAMINE HCL 25 MG CAPSULE PO ONE (22:15)
[2021-03-08] MEDS: ACETAMINOPHEN 325 MG TABLET PO PRN (22:20)
[2021-03-09 05:00] VITALS: BP 135/94
[2021-03-09] MEDS: LACTOBACILLUS RHAMNOSUS GG 1 CAPSULE. PO SCH (07:24)
--- NOTE | 2021-03-09 10:51 | NUR ---
THIS RN SPOKE WITH DR. RAMIREZ, CASE MANAGEMENT, AND PHARMACY. DR. RAMIREZ ORDERED ONE TIME DOSE OF DALVANCE, TO BE FOLLOWED UP WITH TWO DOSES (ONCE A WEEK) OUTPATIENT. PT CAN BE DISCHARGED TODAY AFTER DOSE IS GIVEN. Addendum: 03/09/21 at 1136 by BRITNEY STERLING RN DALVANCE ADMINISTERED OVER 30 MINUTES. LINE FLUSHED WITH D5. PT INSTRUCTED TO COME BACK FOR OUTPATIENT INFUSIONS FOR THE NEXT TWO TUESDAYS.. (03/16 AND 03/23). PT STATES SHE WILL COME FOR HER INFUSIONS.
[2021-03-09] MEDS ORDERED: [UNRECOGNIZED DRUG - OTHER] IV ONE (11:00)
--- NOTE | 2021-03-09 12:59 | NUR ---
PT DISCHARGED FROM HOSPITAL. PT LEFT WITH DISCHARGE PAPERWORK. PT MIDLINE REMOVED. PT EDUCATED ON THE IMPORTANCE OF COMING BACK FOR HER OUTPT INFUSIONS.
--- NOTE | 2021-03-09 14:27 | DS ---
DATE OF DISCHARGE: 03/09/2021 HOSPITAL COURSE: The patient is a 35-year-old female patient who was discharged on 03/05/2021 as she was admitted with chest pain and fever as well as generalized aches and pains and anorexia. Her chest pain was atypical and has 3 sets of cardiac enzymes that ruled out myocardial infarction. Ultimately, her blood culture at that time has grown methicillin-sensitive Staph aureus. As she had a history of bacterial endocarditis, treated with intravenous antibiotic both here and at [facility] as well as [facility] and so she was initially treated with vancomycin and then switched her to cefazolin. Unfortunately, on Monday03/05/2021, she insisted that she wants to go home to pay her rent and take care of her dog, though this was not an issue for all the time that she was there, in fact her blood cultures were also negative and we discharged her to come back as an outpatient to be treated with daptomycin; however, she went home and apparently used her PICC line to inject drugs and within few hours, the patient came back to the Emergency Room with fever up to more than 102.2. Ultimately, her blood cultures done in the Emergency Room showed growth of Staphylococcus hominis, that is methicillin-resistant and also Staph epidermidis in 1 out of 4 bottles; however, the Staphylococcus hominis has grown in 2 out of 4 bottles. The Staphylococcus hominis and methicillin-sensitive Staphylococcus aureus are both sensitive to all antibiotics. I did speak with Dr. Bliss, the Infectious Disease specialist and given that she has already demonstrated the responsibility and that she is unwilling to use her PICC line to inject drugs, we decided to treat her with dalbavancin or Dalvance 1000 mg IV once and the PICC line will be removed and she has to come back 2 more times as recommended by the Infectious Disease to complete treatment, as the antibiotics lingered the circulation for long time and should treat both types of bacteria. PHYSICAL EXAMINATION: GENERAL: On examining her today, she looked well and was clearly in no apparent respiratory distress. No pallor, jaundice, cyanosis or thyromegaly. No jugular venous distention. No limb edema. VITAL SIGNS: Her heart rate was 70, blood pressure was 135/94, temperature was 98, respiratory rate was 16 and oxygen saturation was 98%. HEAD, EYES, EARS, NOSE AND THROAT: Normocephalic, atraumatic. NECK: Supple. HEART: Showed normal first and second heart sounds. No gallop, rub or murmur. CHEST: Clear to auscultation. No crepitation or rhonchi. ABDOMEN: Distended, soft, nontender. NEUROLOGIC: She was grossly intact. LABORATORY DATA: Her most recent lab work showed a white cell count 2300, hemoglobin 10, hematocrit 31, MCV 93, and platelet count of 97,000. Her chemistry showed a serum sodium of 136, potassium 4.3, chloride 104, bicarbonate 22, anion gap of 10, BUN 11, creatinine 1.2. Estimated GFR was 51 mL per minute. Her glucose 116. Lactic acid is 1.2, calcium was 8.6. Total bilirubin, AST, ALT, alkaline phosphatase are normal. Her total protein was 8.2, albumin was 2.5. DISCHARGE MEDICATIONS: The patient was treated with 1000 mg of Dalvance and will be discharged home to come in 1 week time to receive the same antibiotic twice. FINAL DISCHARGE DIAGNOSES: 1. Methicillin-sensitive Staphylococcus aureus bacteremia. 2. Staphylococcus hominis that is methicillin-resistant bacteremia. Other medical problems include history of infective endocarditis. At the time, she had a KENNETH on 04/2019 that showed a large mobile vegetation attached to the base of the interatrial septum. 3. Pancytopenia. 4. Chronic hepatitis C. 5. History of intravenous drug abuse. 6. Tobaccoism. 7. Severe tricuspid regurgitation. 8. Persistent fossa ovalis. TEA DR: Erica TID: [id number]
== END 2021-03-09 13:02 | disposition home or self-care (01) | DRG 313 ==
LOC: ER 20:13 → 1 SOUTH 20:59
PROVIDERS: ADMIT Internal Medicine; ATTEND Internal Medicine
DX: R07.89 Other chest pain (principal); R78.81 Bacteremia; D61.818 Other pancytopenia; I50.9 Heart failure, unspecified; B95.61 Methicillin susceptible Staphylococcus aureus infection as the cause of diseases classified elsewhere; Z88.8 Allergy status to other drugs, medicaments and biological substances; F12.90 Cannabis use, unspecified, uncomplicated; I07.1 Rheumatic tricuspid insufficiency; B18.2 Chronic viral hepatitis C; F17.200 Nicotine dependence, unspecified, uncomplicated; R50.9 Fever, unspecified; M54.9 Dorsalgia, unspecified
CPT/HCPCS: 36415; 80053; 80307; 83605; 84145; 85007; 85025; 87040; 87077; 87186; 87205; 96374; J0696; J0875; J1200; Q0163; 99285-25